=== PATIENT | male | born 1940 | race Caucasian/White ===

== ENCOUNTER → 2016-09-07 | Outpatient (CLI) | payer BC ==
[~2016-09-07] MED LIST: ASPI325T45 PO; CHLO25CA10 PO; CHOL4POW6 PO; CLOT10TR2 MT; FENT50DI19 TD; LISI40TA PO; METO25TA3 PO; MULT-506 PO; OXYC-164 PO; SIMV40TA2 PO; ZNTT/150 PO
[2016-09-07 13:18] LABS: BASO % 0.6 %; BASO ABS # 0.08 K/uL (0-0.2); COMPLETE YES; EOS % 3.9 %; HEMATOCRIT 36.2 % (42-52); IG% 0.3 %; LYMPH % 19.7 %; LYMPH ABS # 2.85 K/uL (1.2-3.4); MEAN CORPUSCULAR HEMOGLOBIN 29.9 pg (25-34); MEAN CORPUSCULAR HGB CONC 33.1 g/dl (32-36); MEAN PLATELET VOLUME 10.8 fL (7.4-10.4); NEUT % 68.5 %; PLATELET COUNT 292 K/uL (130-400); RED BLOOD COUNT 4.02 M/uL (4.7-6.1); WHITE BLOOD COUNT 14.45 K/uL (4.8-10.8)
[2016-09-07 13:21] LABS: BLOOD UREA NITROGEN 39 mg/dl (7-18); BUN/CREATININE RATIO 18.5 (10-20); CALCIUM 8.4 mg/dl (8.5-10.1); CARBON DIOXIDE 18 mmol/L (21-32); CHLORIDE 107 mmol/L (98-107); GLUCOSE 109 mg/dl (70-99); SODIUM 138 mmol/L (136-145)
== END | disposition home or self-care (01) ==
LOC: C.LABPBG 08:48
PROVIDERS: ATTEND Internal Medicine Geriatric Medicine
DX: M19.90 Unspecified osteoarthritis, unspecified site (principal); D64.9 Anemia, unspecified; N18.3 Chronic kidney disease, stage 3 (moderate); E55.9 Vitamin D deficiency, unspecified; I10 Essential (primary) hypertension

== ENCOUNTER → 2016-09-13 | Outpatient (CLI) | payer BC ==
[2016-09-13 13:04] LABS: BLOOD UREA NITROGEN 22 mg/dl (7-18); CARBON DIOXIDE 20 mmol/L (21-32); CHLORIDE 104 mmol/L (98-107); GLUCOSE 104 mg/dl (70-99); POTASSIUM 4.6 mmol/L (3.5-5.1); SODIUM 137 mmol/L (136-145)
== END | disposition home or self-care (01) ==
LOC: C.LABPBG 07:47
PROVIDERS: ATTEND Internal Medicine Geriatric Medicine
DX: N18.3 Chronic kidney disease, stage 3 (moderate) (principal)

== ENCOUNTER → 2017-03-12 | Outpatient (CLI) | payer BC ==
[2017-03-12 12:58] LABS: BASO % 0.3 %; BASO ABS # 0.04 K/uL (0-0.2); COMPLETE YES; EOS % 2.6 %; HEMATOCRIT 36.2 % (42-52); IG% 0.5 %; LYMPH % 22.5 %; LYMPH ABS # 3.12 K/uL (1.2-3.4); MEAN CELL VOLUME 89.8 fL (80-100); MEAN CORPUSCULAR HEMOGLOBIN 28.8 pg (25-34); MEAN PLATELET VOLUME 10.6 fL (7.4-10.4); MONO % 6.9 %; NEUT % 67.2 %; PLATELET COUNT 322 K/uL (130-400); RED BLOOD COUNT 4.03 M/uL (4.7-6.1); WHITE BLOOD COUNT 13.85 K/uL (4.8-10.8)
[2017-03-12 13:17] LABS: ALT/SGPT 23 U/L (12-78); AST/SGOT 16 U/L (15-37); BLOOD UREA NITROGEN 41 mg/dl (7-18); BUN/CREATININE RATIO 21.7 (10-20); CALCIUM 8.6 mg/dl (8.5-10.1); CARBON DIOXIDE 22 mmol/L (21-32); CHLORIDE 102 mmol/L (98-107); CHOLESTEROL 129 mg/dl (0-200); GLUCOSE 99 mg/dl (70-99); POTASSIUM 5.5 mmol/L (3.5-5.1); SODIUM 131 mmol/L (136-145)
[2017-03-12 13:29] LABS: ALB/GLOB RATIO 0.9 (0.9-2); ALKALINE PHOSPHATASE 98 U/L (45-117); CHOLESTEROL/HDL RATIO 3.5; HDL CHOLESTEROL 37 mg/dl; LDL CHOLESTEROL CALCULATED 51 mg/dl; TRIGLYCERIDES 205 mg/dl (0-150); VERY LOW DENSITY LIPOPROT CALC 41 mg/dl
== END | disposition home or self-care (01) ==
LOC: C.LABPBG 08:04
PROVIDERS: ATTEND Internal Medicine Geriatric Medicine
DX: I12.9 Hypertensive chronic kidney disease with stage 1 through stage 4 chronic kidney disease, or unspecified chronic kidney disease (principal); E78.5 Hyperlipidemia, unspecified; N18.3 Chronic kidney disease, stage 3 (moderate); D64.9 Anemia, unspecified; E55.9 Vitamin D deficiency, unspecified; R35.1 Nocturia

== ENCOUNTER → 2017-03-15 | Outpatient (CLI) | payer BC ==
[2017-03-15 12:53] LABS: BLOOD UREA NITROGEN 26 mg/dl (7-18); BUN/CREATININE RATIO 16.3 (10-20); CARBON DIOXIDE 21 mmol/L (21-32); CHLORIDE 104 mmol/L (98-107); GLUCOSE 104 mg/dl (70-99); POTASSIUM 4.8 mmol/L (3.5-5.1); SODIUM 133 mmol/L (136-145)
== END | disposition home or self-care (01) ==
LOC: C.LABPBG 09:21
PROVIDERS: ATTEND Internal Medicine Geriatric Medicine
DX: E87.5 Hyperkalemia (principal)

== ENCOUNTER → 2017-10-09 | Outpatient (CLI) | payer BC ==
[~2017-10-09] MED LIST changes: +RANI150T85 PO; -ZNTT/150 PO
[2017-10-09 17:49] LABS: BASO % 0.6 %; BASO ABS # 0.07 K/uL (0-0.2); EOS % 1.7 %; HEMATOCRIT 33.9 % (42-52); HEMOGLOBIN 11.6 g/dL (14.0-18.0); IG# 0.03 K/uL (0.00-0.02); LYMPH % 25.7 %; LYMPH ABS # 2.97 K/uL (1.2-3.4); MEAN CELL VOLUME 88.3 fL (80-100); MEAN CORPUSCULAR HEMOGLOBIN 30.2 pg (25-34); MEAN CORPUSCULAR HGB CONC 34.2 g/dl (32-36); MEAN PLATELET VOLUME 10.5 fL (7.4-10.4); MONO % 4.6 %; MONO ABS # 0.53 K/uL (0.11-0.59); NEUT % 67.1 %; NEUT ABS # 7.76 K/uL (1.4-6.5); PLATELET COUNT 285 K/uL (130-400); RED CELL DISTRIBUTION WIDTH CV 13.1 % (11.5-14.5); RED CELL DISTRIBUTION WIDTH SD 42.2 fL (36.4-46.3); WHITE BLOOD COUNT 11.56 K/uL (4.8-10.8)
[2017-10-09 18:11] LABS: BLOOD UREA NITROGEN 35 mg/dl (7-18); CALCIUM 8.6 mg/dl (8.5-10.1); CARBON DIOXIDE 22 mmol/L (21-32); CREATININE 1.98 mg/dl (0.60-1.40); GLUCOSE 104 mg/dl (70-99); POTASSIUM 5.1 mmol/L (3.5-5.1); SODIUM 133 mmol/L (136-145)
== END | disposition home or self-care (01) ==
LOC: C.LABPBG 15:07
PROVIDERS: ATTEND Internal Medicine Geriatric Medicine
DX: E78.5 Hyperlipidemia, unspecified (principal); D64.9 Anemia, unspecified; N18.3 Chronic kidney disease, stage 3 (moderate); R35.1 Nocturia; I12.9 Hypertensive chronic kidney disease with stage 1 through stage 4 chronic kidney disease, or unspecified chronic kidney disease

== ENCOUNTER → 2017-11-14 | Outpatient (CLI) | payer BC ==
[~2017-11-14] MED LIST changes: +CHOL1000 PO; +CHOLPOW PO; +DIPH-437 PO; +FINA5TAB PO; +FNTTP50 TD; +IMD/2 PO; +NYSS5 PO; +TAMS0.4C38 PO
[2017-11-14 13:40] LABS: BLOOD UREA NITROGEN 31 mg/dl (7-18); CREATININE 1.76 mg/dl (0.60-1.40)
== END | disposition home or self-care (01) ==
LOC: C.LABPBG 08:21
PROVIDERS: ATTEND Surgery Vascular Surgery
DX: I65.29 Occlusion and stenosis of unspecified carotid artery (principal)

== ENCOUNTER 2017-11-19 08:39 | Emergency (ER) | payer BC ==
[~2017-11-19] VITALS: Ht 172.7 cm; Wt 91.5 kg
[~2017-11-19 08:39] MED LIST changes: -ASPECOTC PO; +ASPI325T45 PO; -CHOL1000 PO; -CHOLPOW PO; -DIPH-437 PO; -FINA5TAB PO; -FNTTP50 TD; -IMD/2 PO; -NYSS5 PO; -TAMS0.4C38 PO
[2017-11-19 08:42] VITALS: TEMP 36.4; Ht 172.7 cm; Wt 91.5 kg
[2017-11-19] MEDS ORDERED: CHOLPOW PO (10:02)
[2017-11-19] MEDS ORDERED: FNTTP50 TD (10:02)
[2017-11-19] MEDS ORDERED: CHLO25CA10 PO (10:02)
[2017-11-19] MEDS ORDERED: ASPI325T45 PO (10:02)
[2017-11-19] MEDS ORDERED: NYSS5 PO (10:02)
[2017-11-19] MEDS ORDERED: METO25TA3 PO (10:02)
[2017-11-19] MEDS ORDERED: LISI40TA PO (10:02)
[2017-11-19] MEDS ORDERED: TAMS0.4C38 PO (10:02)
[2017-11-19] MEDS ORDERED: IMD/2 PO (10:02)
[2017-11-19] MEDS ORDERED: CHOL1000 PO (10:02)
[2017-11-19] MEDS ORDERED: DIPH-437 PO (10:02)
[2017-11-19] MEDS ORDERED: FINA5TAB PO (10:02)
--- NOTE | 2017-11-19 10:10 | EMERGENCY ROOM VISIT NOTE ---
History First contact with patient: 08:52 Chief Complaint: PAIN (GENERALIZED) Stated Complaint: PAIN IN RIGHT LEG AND NECK History of Present Illness The patient is a 77 year old male with hx of R hip replacement, R femur sandip, R knee replacement, complete occlusion of R-ICA, 50-60% occlusion of L-ICA, HTN, HLD, and chronic pain presents to the Emergency Room with complaints of R thigh region pain since last week and R neck pain x 3 days. Pt uses a cane outside of the house, and a wheelchair/hospital bed inside the house. Pt described neck pain as constant worse with movement and 1-2/10. R thigh region pain is described as "jolt like pain" 10/10 and intermittent. Denies any numbness/ tingling or worsening of baseline weakness in leg. According to over- exerted himself last week as it took him 6 hours to get to and from appointment (house has 2 flights of stairs) and also needed to go out for blood work the next day. According to , neck pain likely from spasm and caused by discomfort from R thigh region. Pt came for neck CTA today to the hospital and called PCP regarding R thigh/neck pain and was told to come to the ED. Review of Systems see below Constitutional: No fever Respiratory: No shortness of breath Cardiovascular: No chest pain Abdomen: + diarrhea (chronic), No pain, No nausea, No vomiting Musculoskeletal: + problem reported (R thigh region pain and R sided neck pain) Genitourinary - Male: + urinary incontinence (chronic), No dysuria Neurologic: + weakness, No numbness/tingling Past Medical/Surgical History Medical Problems: (1) Benign hypertension (2) Chronic pain syndrome (3) Hyperlipidemia Family History No significant family history Social History Smoking Status: Former Smoker Alcohol Use: occasionally Drug Use: none Marital Status: Housing Status: lives with family Current/Historical Medications Scheduled Aspirin (Aspirin), 325 MG PO DAILY Chlordiazepoxide (Librium), 25 MG PO QID Chlordiazepoxide (Librium), 25 MG PO NEEDED Cholecalciferol (Vitamin D3), 100 UNITS PO DAILY Cholestyramine (Bulk) (Cholestyramine), 4 GM PO DAILY Diphenhydramine-Acetaminophen (Tylenol Pm), 1 TAB PO HS Fentanyl (Duragesic), 50 MCG TD CQ72HR Finasteride (Proscar), 5 MG PO DAILY Lisinopril (Zestril), 40 MG PO DAILY Loperamide Hcl (Imodium), 2 MG PO Q6 Metoprolol Succ (Toprol Xl) (Toprol-Xl), 25 MG PO DAILY Multivitamin (Multivitamin), 1 TAB PO DAILY Nystatin (Nystatin), 5 ML PO QID Ranitidine (Zantac), 300 MG PO DAILY Simvastatin (Zocor), 40 MG PO QPM Tamsulosin Hcl (Flomax), 0.4 MG PO DAILY Scheduled PRN Oxycodone Hcl (Oxycodone Hcl), 10 MG PO Q4 PRN for Pain Physical Exam Vital Signs Date Time Temp Pulse Resp B/P (MAP) Pulse Ox O2 Delivery O2 Flow Rate FiO2 11/19/17 11:55 59 144/54 98 Room Air 11/19/17 10:29 76 19 106/51 99 Room Air 11/19/17 08:42 36.4 62 18 135/76 99 Room Air Physical Exam see below General Appearance: no apparent distress Head: normocephalic, atraumatic Eyes: normal inspection ENT: normal ENT inspection Neck: no carotid bruits, + pertinent finding (full neck ROM; reports pain with neck extension and when turning to the left; R sided neck tenderness in the region of sternocleidomastoid muscle) Respiratory/Chest: lungs clear, normal breath sounds Cardiovascular: regular rate, rhythm, no murmur Abdomen / GI: normal bowel sounds, non tender, soft Back: normal inspection, + paravertebral tenderness Extremities: normal inspection, no calf tenderness, no pedal edema Neurologic/Psych: alert, oriented x 3 Medical Decision & Procedures Medical Decision 77 year old male with hx of R hip replacement, R femur sandip, R knee replacement, complete occlusion of R-ICA, 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 Neck pain concerning for neck strain vs. radiculopathy -ordered C-spine xray - no fracture or subluxation; multilevel degenerative changes -Neck CTA ordered by Dr. Subramanian today: slight progression of miderate calcified plague L-IC bulb and 50-60% stenosis at origin of L-ICA; complete occlusion of R ICA R thigh region pain concerning for exacerbation of R hip pain in the setting of R hip replacement in 1957 vs. exacerbation of chronic R knee pain (hx of R knee replacement) -ordered R femur xray -mild soft tissue swelling lateral proximal R femur consistent with likely contusion Impression Primary Impression: Contusion of leg, right Additional Impression: Neck sprain Departure Information Referrals Rj Monahan M.D. (PCP) Patient Instructions My [facility] Problem Qualifiers
--- NOTE | 2017-11-19 10:32 | DIAGNOSTIC IMAGING REPORT ---
R FEMUR 2 VIEWS ROUTINE HISTORY: 77 years-old Male R thigh pain acute right thigh pain without known trauma COMPARISON: Acute abdominal series radiographs 02/18/2014 TECHNIQUE: 2 views of the right femur FINDINGS: Right knee arthroplasty is in place. Intramedullary nail with 2 distal and one proximal cannulated fixation screws is in place. Cortical thickening of the distal femoral metaphysis, most pronounced laterally suggests healed fracture deformity. There is no acute fracture or dislocation identified. Moderate degenerative changes about the right hip. The bones appear mildly demineralized. Cannulated screws are seen within the right iliac wing, unchanged. There is suggestion of mild soft tissue prominence lateral to the right proximal femur. Peripheral vascular disease. IMPRESSION: 1. Suggestion of mild soft tissue swelling lateral to the proximal right femur without acute fracture or dislocation. 2. Peripheral vascular disease. The above report was generated using voice recognition software. It may contain grammatical, syntax or spelling errors. Electronically signed by: Paco Gilmore M.D. 11/19/2017 10:31 AM Dictated Date/Time: 11/19/2017 10:29 AM
--- NOTE | 2017-11-19 10:53 | DIAGNOSTIC IMAGING REPORT ---
C-SPINE ROUTINE 4 OR 5 VIEWS HISTORY: 77 years-old Male neck pain acute neck pain without known injury COMPARISON: CTA of the neck of same day TECHNIQUE: 5 views of the cervical spine FINDINGS: The seventh vertebral segment is not well seen on the lateral view secondary to positioning. At least moderate intervertebral disc space narrowing is seen at C4-C5, C5-C6 and C6-C7 with partial bony fusion at the C4-C5 level. Moderate multilevel facet arthrosis with endplate spurring. These changes result in multilevel bony neuroforaminal narrowing, most pronounced on the right at C5-C6 and C6-C7, moderate to severe at C6-C7. Additionally, on the left there is multilevel bony neuroforaminal narrowing which appears at least moderate throughout. No acute fracture or subluxation identified. Imaged lung apices are clear. No prevertebral soft tissue swelling. IMPRESSION: 1. No acute fracture or subluxation. 2. Multilevel degenerative changes as above. The above report was generated using voice recognition software. It may contain grammatical, syntax or spelling errors. Electronically signed by: Paco Gilmore M.D. 11/19/2017 10:52 AM Dictated Date/Time: 11/19/2017 10:49 AM
[2017-11-19 11:55] VITALS: BP 144/54; PULSE 59; O2SAT 98
--- NOTE | 2017-11-19 13:36 | EMERGENCY ROOM VISIT NOTE ---
History Report prepared by Christopheribpayton: Chay Watts Under the Supervision of: Dr. Saad Marquis D.O. First contact with patient: 08:54 Chief Complaint: PAIN (GENERALIZED) Stated Complaint: PAIN IN RIGHT LEG AND NECK History of Present Illness The patient is a 77 year old male who presents to the Emergency Room with complaints of intermittent right thigh and constant right-sided neck pain. His thigh pain began last week, and his neck pain began three days ago. The patient rates his neck pain as a 2/10 in severity, and his thigh pain as a 10/10 in severity. He denies any numbness, or weakness. The patient has a history of right hip replacement, right femur sandip placement, right knee replacement, complete occlusion of right ICA, 50-60% occlusion of left ICA, HTN, HLD, and chronic pain. He ambulates at home using a cane while outside, but uses a wheelchair while home. Per , the patient may have over exerted himself last week and this may be responsible for his pain. She states that he had to leave the house several times and go up and down several flights of stairs each time. She feels that the patient's neck pain could be related to him stiffening his neck when his thigh hurts. Pt came for neck CTA today to the hospital and called PCP regarding right thigh/neck pain and was told to come to the ED. Source of History: patient, spouse/significant other () Onset: Last week Position: leg (right thigh) Symptom Intensity: 10/10 Timing: intermittent Associated Symptoms: + neck pain (right sided), No weakness, No numbness Review of Systems See HPI for pertinent positives & negatives. A total of 10 systems reviewed and were otherwise negative. Past Medical & Surgical Medical Problems: (1) Benign hypertension (2) Chronic pain syndrome (3) Hyperlipidemia Family History No significant family history Social History Smoking Status: Former Smoker Alcohol Use: occasionally Drug Use: none Marital Status: Housing Status: lives with family Current/Historical Medications Scheduled Aspirin (Aspirin), 325 MG PO DAILY Chlordiazepoxide (Librium), 25 MG PO QID Chlordiazepoxide (Librium), 25 MG PO NEEDED Cholecalciferol (Vitamin D3), 100 UNITS PO DAILY Cholestyramine (Bulk) (Cholestyramine), 4 GM PO DAILY Diphenhydramine-Acetaminophen (Tylenol Pm), 1 TAB PO HS Fentanyl (Duragesic), 50 MCG TD CQ72HR Finasteride (Proscar), 5 MG PO DAILY Lisinopril (Zestril), 40 MG PO DAILY Loperamide Hcl (Imodium), 2 MG PO Q6 Metoprolol Succ (Toprol Xl) (Toprol-Xl), 25 MG PO DAILY Multivitamin (Multivitamin), 1 TAB PO DAILY Nystatin (Nystatin), 5 ML PO QID Ranitidine (Zantac), 300 MG PO DAILY Simvastatin (Zocor), 40 MG PO QPM Tamsulosin Hcl (Flomax), 0.4 MG PO DAILY Scheduled PRN Oxycodone Hcl (Oxycodone Hcl), 10 MG PO Q4 PRN for Pain Allergies Coded Allergies: No Known Allergies (Verified , 06/28/16) Physical Exam Vital Signs Date Time Temp Pulse Resp B/P (MAP) Pulse Ox O2 Delivery O2 Flow Rate FiO2 11/19/17 11:55 59 144/54 98 Room Air 11/19/17 10:29 76 19 106/51 99 Room Air 11/19/17 08:42 36.4 62 18 135/76 99 Room Air Physical Exam CONSTITUTIONAL/VITAL SIGNS: Reviewed / noted above. GENERAL: Non-toxic in appearance. INTEGUMENTARY: Warm, dry, and [place]. HEAD: Normocephalic. EYES: without scleral icterus or trauma. ENT/OROPHARYNX: clear and moist. LYMPHADENOPATHY/NECK: Is supple without lymphadenopathy or meningismus. RESPIRATORY: Lungs clear and equal. CARDIOVASCULAR: Regular rate and rhythm. GI/ABDOMEN: Soft and nontender. No organomegaly or pulsatile mass. No rebound or guarding. Normal bowel sounds. EXTREMITIES: Warm and well perfused. BACK: No CVA tenderness. NEUROLOGICAL: Intact without focal deficits. PSYCHIATRIC: normal affect. MUSCULOSKELETAL: Normally developed with good muscle tone. Medical Decision & Procedures ER Provider Diagnostic Interpretation: Radiology results as stated below per my review and radiologist interpretation: R FEMUR 2 VIEWS ROUTINE FINDINGS: Right knee arthroplasty is in place. Intramedullary nail with 2 distal and one proximal cannulated fixation screws is in place. Cortical thickening of the distal femoral metaphysis, most pronounced laterally suggests healed fracture deformity. There is no acute fracture or dislocation identified. Moderate degenerative changes about the right hip. The bones appear mildly demineralized. Cannulated screws are seen within the right iliac wing, unchanged. There is suggestion of mild soft tissue prominence lateral to the right proximal femur. Peripheral vascular disease. IMPRESSION: 1. Suggestion of mild soft tissue swelling lateral to the proximal right femur without acute fracture or dislocation. 2. Peripheral vascular disease. The above report was generated using voice recognition software. It may contain grammatical, syntax or spelling errors. Electronically signed by: Paco Gilmore M.D. 11/19/2017 10:31 AM C-SPINE ROUTINE 4 OR 5 VIEWS FINDINGS: The seventh vertebral segment is not well seen on the lateral view secondary to positioning. At least moderate intervertebral disc space narrowing is seen at C4-C5, C5-C6 and C6-C7 with partial bony fusion at the C4-C5 level. Moderate multilevel facet arthrosis with endplate spurring. These changes result in multilevel bony neuroforaminal narrowing, most pronounced on the right at C5-C6 and C6-C7, moderate to severe at C6-C7. Additionally, on the left there is multilevel bony neuroforaminal narrowing which appears at least moderate throughout. No acute fracture or subluxation identified. Imaged lung apices are clear. No prevertebral soft tissue swelling. IMPRESSION: 1. No acute fracture or subluxation. 2. Multilevel degenerative changes as above. The above report was generated using voice recognition software. It may contain grammatical, syntax or spelling errors. Electronically signed by: Paco Gilmore M.D. 11/19/2017 10:52 AM ED Course 0858: Previous medical records were reviewed. The patient was evaluated in room A4B. A complete history and physical examination was performed. Medical Decision Differential diagnosis: Etiologies such as fracture, dislocation, neurovascular compromise, compartment syndrome, soft tissue injury, as well as others were entertained. This is a 77-year-old male who presents to the ED with a chief complaint of neck pain as well as right leg pain. Details listed above. The patient was seen with the resident. The patient has had neck pain for several days and right leg pain for about a week. His pain in his leg seems to be increased with certain movements. X-rays of the right femur as well as the cervical spine did not show any evidence of fracture or acute abnormality. Degenerative changes were noted. I talked to the patient about the results. He is going to try Tylenol or Motrin as needed for pain and follow-up if symptoms persist Medication Reconcilliation Current Medication List: was personally reviewed by me Blood Pressure Screening Patient's blood pressure: Normal blood pressure Blood pressure disposition: Did not require urgent referral Impression Primary Impression: Contusion of leg, right Additional Impression: Neck sprain Scribe Attestation The scribe's documentation has been prepared under my direction and personally reviewed by me in its entirety. I confirm that the note above accurately reflects all work, treatment, procedures, and medical decision making performed by me. Departure Information Dispostion Home / Self-Care Referrals Rj Monahan M.D. (PCP) Forms HOME CARE DOCUMENTATION FORM, IMPORTANT VISIT INFORMATION, WORK / SCHOOL INSTRUCTIONS Patient Instructions Contusion Bone Tx, My [facility], Neck Strain - [facility] Additional Instructions Medications recommended for pain: Ibuprofen (motrin) up to 800mg every 8 hours OR Tylenol (acetaminophen) 500mg three times a day Problem Qualifiers
== END 2017-11-19 12:08 | disposition home or self-care (01) ==
LOC: C.EDB 08:40 → C.EDA 12:08
DX: S80.11XA Contusion of right lower leg, initial encounter (principal); S13.9XXA Sprain of joints and ligaments of unspecified parts of neck, initial encounter; X58.XXXA Exposure to other specified factors, initial encounter; Y92.9 Unspecified place or not applicable; I10 Essential (primary) hypertension; E78.5 Hyperlipidemia, unspecified; G89.4 Chronic pain syndrome; Z96.641 Presence of right artificial hip joint; Z96.651 Presence of right artificial knee joint; Z87.891 Personal history of nicotine dependence; Z79.82 Long term (current) use of aspirin; Z79.899 Other long term (current) drug therapy

== ENCOUNTER → 2017-11-19 | Outpatient (CLI) | payer BC ==
[~2017-11-19] MED LIST changes: +ASPECOTC PO; -ASPI325T45 PO
--- NOTE | 2017-11-19 08:58 | DIAGNOSTIC IMAGING REPORT ---
NECK CTA HISTORY: Follow-up carotid stenosis. TECHNIQUE: Multiaxial CT images of the neck were performed both before and after the intravenous administration of contrast to evaluate the major cervical vessels. Maximum intensity projection images were also obtained. All measurements were calculated based on NASCET criteria. A dose lowering technique was utilized adhering to the principles of ALARA. COMPARISON STUDY: Neck CTA 12/21/2010. FINDINGS: The aortic arch and proximal great vessels are widely patent. 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 This remains unchanged. Mild narrowing of approximately 20% at the proximal right external carotid artery. There is moderate calcified plaque within the left carotid bulb which has slightly progressed. There is approximately 50-60% stenosis at the origin of the left internal carotid artery. This is similar to the prior study. The common carotid arteries and vertebral arteries are maintained. Mild noncalcified plaque within the right common carotid artery persists. There is cross-filling within the [place] from left to right. The visualized brain parenchyma is unremarkable. IMPRESSION: 1. Slight progression of the moderate calcified plaque within the left carotid bulb. However, the 50-60% focal stenosis at the origin of the left internal carotid artery is not significantly changed. 2. Complete occlusion of the right internal carotid artery, unchanged. Electronically signed by: Rao Aguiar M.D. 11/19/2017 8:57 AM Dictated Date/Time: 11/19/2017 8:45 AM
== END | disposition home or self-care (01) ==
LOC: C.CTS 07:57
PROVIDERS: ATTEND Physician Assistant
DX: I65.23 Occlusion and stenosis of bilateral carotid arteries (principal)

== ENCOUNTER 2018-03-26 06:22 | Emergency (ER) | payer BC ==
[~2018-03-26 06:22] MED LIST changes: +ASPECOTC PO; -ASPI325T45 PO; +CHOL1000 PO; -CHOL4POW6 PO; +CHOLPOW PO; -CLOT10TR2 MT; +DIPH-437 PO; -FENT50DI19 TD; +FINA5TAB PO; +FNTTP50 TD; +IMD/2 PO; +NYSS5 PO; +TAMS0.4C38 PO
[2018-03-26 06:25] VITALS: TEMP 36.6; Ht 177.8 cm
[2018-03-26] MEDS ORDERED: SODIUM CHLORIDE 0.9% 1000ML 1,000 ML IV STA (06:35)
[2018-03-26 06:37] VITALS: O2SAT 96
[2018-03-26] MEDS ORDERED: OPTIRAY 320 IV PRN (06:45)
--- NOTE | 2018-03-26 06:48 | EMERGENCY ROOM VISIT NOTE ---
History First contact with patient: 06:29 Chief Complaint: GI ASSESSMENT Stated Complaint: BOWEL BLOCKAGE,VOMITING,NO BOWEL MVMNT 3DYS Nursing Triage Summary: Pt presents with c/o lower abd pain x 2.5 days with associated nausea. Pt reports hx of blockage several years ago. States he moved his bowels this morning. History of Present Illness The patient is a 77 year old male who presents to the Emergency Room with complaints of bowel blockage. The patient reports she has not had a bowel movement in 3 days. He is complaining of lower quadrant pains. The patient believes he is about to have a bowel movement upon arrival to the emergency department. He keeps asking to use the bathroom. He has had his gallbladder out in the past. Patient reports he has been vomiting. Review of Systems See HPI for pertinent positives & negatives. A total of 10 systems reviewed and were otherwise negative. Past Medical/Surgical History Medical Problems: (1) Benign hypertension (2) Chronic pain syndrome (3) Hyperlipidemia Family History No significant family history Social History Smoking Status: Current Every Day Smoker Alcohol Use: occasionally Drug Use: none Marital Status: Housing Status: lives with family Current/Historical Medications Scheduled Aspirin (Aspirin), 325 MG PO DAILY Chlordiazepoxide (Librium), 25 MG PO QID Chlordiazepoxide (Librium), 25 MG PO NEEDED Cholecalciferol (Vitamin D3), 100 UNITS PO DAILY Cholestyramine (Bulk) (Cholestyramine), 4 GM PO DAILY Diphenhydramine-Acetaminophen (Tylenol Pm), 1 TAB PO HS Fentanyl (Duragesic), 50 MCG TD [id number] Finasteride (Proscar), 5 MG PO DAILY Lisinopril (Zestril), 40 MG PO DAILY Loperamide Hcl (Imodium), 2 MG PO Q6 Metoprolol Succ (Toprol Xl) (Toprol-Xl), 25 MG PO DAILY Multivitamin (Multivitamin), 1 TAB PO DAILY Nystatin (Nystatin), 5 ML PO QID Ondasetron Odt (Zofran Odt), 4 MG SL Q6H Ranitidine (Zantac), 300 MG PO DAILY Simvastatin (Zocor), 40 MG PO QPM Tamsulosin Hcl (Flomax), 0.4 MG PO DAILY Scheduled PRN Oxycodone Hcl (Oxycodone Hcl), 10 MG PO Q4 PRN for Pain Physical Exam Vital Signs Date Time Temp Pulse Resp B/P (MAP) Pulse Ox O2 Delivery O2 Flow Rate FiO2 03/26/18 08:55 66 20 123/46 94 Room Air 03/26/18 07:52 63 18 96 03/26/18 07:31 116/68 03/26/18 07:22 68 18 03/26/18 07:01 108/70 03/26/18 06:52 69 11 97 03/26/18 06:40 72 03/26/18 06:39 70 20 92/63 96 Room Air 03/26/18 06:37 96 Room Air 03/26/18 06:36 92/63 03/26/18 06:25 36.6 76 26 92/61 97 Room Air Physical Exam GENERAL: Awake, alert, well-appearing, in no acute distress HENT: Normocephalic, atraumatic. Oropharynx unremarkable. EYES: Normal conjunctiva. Sclera non-icteric. NECK: Supple. No nuchal rigidity. FROM. No JVD. RESPIRATORY: Clear to auscultation. CARDIAC: Regular rate, normal rhythm. Extremities warm and well perfused. Pulses equal. ABDOMEN: Soft, non-distended. tenderness RLQ and LLQ. No rebound or guarding. No masses. RECTAL: Deferred. MUSCULOSKELETAL: Chest examination reveals no tenderness. The back is symmetrical on inspection without obvious abnormality. There is no CVA tenderness to palpation. No joint edema. LOWER EXTREMITIES: Calves are equal size bilaterally and non-tender. No edema. No discoloration. NEURO: Normal sensorium. No sensory or motor deficits noted. SKIN: No rash or jaundice noted. Medical Decision & Procedures ER Provider Diagnostic Interpretation: CHEST ONE VIEW PORTABLE CLINICAL HISTORY: 77 years-old Male presenting with CHEST PAIN. TECHNIQUE: Portable upright AP view of the chest was obtained. COMPARISON: 12/09/2014. FINDINGS: Atherosclerosis of the aortic arch. Cardiac silhouette normal in size. Minimal basilar opacities. No pleural effusion or pneumothorax. Degenerative changes of the thoracic spine. Upper abdomen normal. IMPRESSION: 1. Minimal basilar opacities likely atelectasis or scarring. No convincing evidence of acute cardiopulmonary disease. ABD/PELVIS WITHOUT FOR STONE CLINICAL HISTORY: 77 years-old Male presenting with diffuse abdominal pain, constipation, nausea, vomiting. TECHNIQUE: Multidetector CT of the abdomen and pelvis was performed without the use of intravenous contrast. IV contrast: None. A dose lowering technique was used consistent with the principles of ALARA (as low as reasonably achievable). COMPARISON: 02/17/2014. CT DOSE (mGy.cm): The estimated cumulative dose is 1397.85 mGy.cm. 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 3 screws noted in the right ilium. Posterior lumbar fusion hardware at L4-5. Cholecystectomy clips. Lung bases: Minimal basilar opacities, likely atelectasis. Bronchial wall thickening noted. Pulmonary cyst noted in the azygoesophageal recess of the right lower lobe. Normal heart size. Aortic valve calcification. No pericardial or pleural effusion. Liver: Congenital hypoplasia of the medial segments of the left hepatic lobe. Normal density. Biliary: Mild biliary ductal prominence likely a reservoir effect in the post cholecystectomy state. Gallbladder surgically absent. Pancreas: Mild parenchymal atrophy. Spleen: Normal noncontrast appearance. Adrenal glands: Normal noncontrast appearance. Kidneys and ureters: Moderate bilateral perinephric fat stranding similar to prior. Atrophy of the right renal parenchyma. Multiple bilateral renal lesions greatest on the right, indeterminate though many of these represents cysts. Few cysts demonstrate peripheral calcification. A hyperdense lesion anteriorly in the interpolar region is new from prior and is indeterminate though possibly hemorrhagic or proteinaceous cyst measuring 1.9 cm (series 3 image 182). No hydronephrosis. Few punctate nonobstructing renal calculi may be present at the lower pole the right kidney, new from prior. Ureters normal. Bladder: Allowing for underdistention of the bladder, possible bladder wall thickening greatest along the anterior wall. Pelvic organs: Prostate and seminal vesicles normal. Bowel: Fluid throughout the colon suggests a diarrheal state. Hyperdense material in the gastric fundus and small bowel is indeterminate. Mild distention of small bowel without convincing evidence of obstruction. Prominent intramural fat deposition noted in the terminal ileum, nonspecific. Scattered additional regions of intramural fat deposition in the small bowel. No significant bowel wall thickening. No pericolonic or perienteric inflammatory change. Peritoneal cavity: Trace free fluid in the abdomen and pelvis. No free intraperitoneal gas. Lymph nodes: No gross lymphadenopathy allowing for noncontrast technique. Vasculature: Atherosclerosis of the normal caliber abdominal aorta. Flattened appearance of the IVC suggests a hypovolemic state. Abdominal wall: Normal. Musculoskeletal: Postsurgical changes of posterior lumbar fusion hardware at L4-5 with laminectomy defects. Adjacent level degenerative change at L3-4. Total left hip arthroplasty. Three screw fixation and posttraumatic deformity of the right ilium suggested. Degenerative changes of the right hip joint. Old fracture deformity of the left superior and inferior pubic rami suggested. Old left rib fracture noted. IMPRESSION: 1. Mild diffuse distention of small bowel without evidence of small bowel obstruction. Fluid throughout small and large bowel could suggest a enterocolitis and a diarrheal state. Hyperdense material within the gastric fundus and small bowel is indeterminate and may represent medication administration. Less likely diagnostic consideration is gastrointestinal hemorrhage. Correlate clinically. 2. Scattered sites of intramural fat deposition and small bowel is nonspecific though could suggest a history of chronic inflammation or chronic steroid exposure among other etiologies. 3. Chronic atrophy of the right kidney with numerous cystic lesions, some of which are complex. These are incompletely evaluated without intravenous contrast. The hyperdense right renal lesion may represent a hemorrhagic or proteinaceous cyst though solid neoplasm is not excluded. If there is clinical concern, contrast-enhanced MR of the kidneys could be obtained on a nonurgent basis. 4. Bronchial wall thickening at the lung bases could suggest bronchitis, smoking related lung injury, or congestive change. 5. Flattened appearance of the IVC suggests a hypovolemic state. Laboratory Results 03/26/18 06:45 Red Blood Count 4.10, Mean Corpuscular Volume 87.1, Mean Corpuscular Hemoglobin 29.8, Mean Corpuscular Hemoglobin Concent 34.2, Mean Platelet Volume 10.0, Neutrophils (%) (Auto) 69.8, Lymphocytes (%) (Auto) 17.2, Monocytes (%) (Auto) 10.4, Eosinophils (%) (Auto) 2.2, Basophils (%) (Auto) 0.2, Neutrophils # (Auto ) 8.56, Lymphocytes # (Auto) 2.12, Monocytes # (Auto) 1.28, Eosinophils # (Auto ) 0.27, Basophils # (Auto) 0.03 03/26/18 06:45 Test 03/26/18 06:45 03/26/18 06:55 White Blood Count 12.29 K/uL (4.8-10.8) Red Blood Count 4.10 M/uL (4.7-6.1) Hemoglobin 12.2 g/dL (14.0-18.0) Hematocrit 35.7 % (42-52) Mean Corpuscular Volume 87.1 fL (80-100) Mean Corpuscular Hemoglobin 29.8 pg (25-34) Mean Corpuscular Hemoglobin Concent 34.2 g/dl (32-36) Platelet Count 307 K/uL (130-400) Mean Platelet Volume 10.0 fL (7.4-10.4) Neutrophils (%) (Auto) 69.8 % Lymphocytes (%) (Auto) 17.2 % Monocytes (%) (Auto) 10.4 % Eosinophils (%) (Auto) 2.2 % Basophils (%) (Auto) 0.2 % Neutrophils # (Auto) 8.56 K/uL (1.4-6.5) Lymphocytes # (Auto) 2.12 K/uL (1.2-3.4) Monocytes # (Auto) 1.28 K/uL (0.11-0.59) Eosinophils # (Auto) 0.27 K/uL (0-0.5) Basophils # (Auto) 0.03 K/uL (0-0.2) RDW Standard Deviation 42.2 fL (36.4-46.3) RDW Coefficient of Variation 13.2 % (11.5-14.5) Immature Granulocyte % (Auto) 0.2 % Immature Granulocyte # (Auto) 0.03 K/uL (0.00-0.02) Estimated GFR () 26.4 Estimated GFR (Non- 22.8 BUN/Creatinine Ratio 15.2 (10-20) Calcium Level 8.1 mg/dl (8.5-10.1) Total Bilirubin 0.3 mg/dl (0.2-1) Direct Bilirubin < 0.1 mg/dl (0-0.2) Aspartate Amino Transf (AST/SGOT) 16 U/L (15-37) Alanine Aminotransferase (ALT/SGPT) 17 U/L (12-78) Alkaline Phosphatase 85 U/L (45-117) Total Creatine Kinase 71 U/L (39-308) Creatine Kinase MB 2.3 ng/ml (0.5-3.6) Creatine Kinase MB Ratio 3.2 (0-3.0) Troponin I < 0.015 ng/ml (0-0.045) Total Protein 6.9 gm/dl (6.4-8.2) Albumin 3.3 gm/dl (3.4-5.0) Lipase 70 U/L (73-393) Bedside Hemoglobin 12.9 g/dl (14.0-18.0) Bedside Hematocrit 38 % (42-52) Bedside Sodium 132 mEq/L (135-144) Bedside Potassium 4.3 mEq/L (3.3-5.0) Bedside Chloride 94 mEq/L (101-112) Bedside Total CO2 24 mEq/l (24-31) Anion Gap 20.0 mmol/L (16-25) Bedside Blood Urea Nitrogen 36 mg/dl (7-18) Bedside Creatinine 2.9 mg/dl (0.6-1.3) Bedside Glucose (other) 117 mg/dl (70-99) Bedside Ionized Calcium (Nelly) 1.05 mmol/l (1.12-1.32) Date/Time Source Procedure Growth Status 03/26/18 07:50 Stool C.difficile Toxin B Gene (PCR) - Final Positive for C. difficile toxin B gene Complete Medications Administered Medications (Trade) Dose Ordered Sig/Natalia Route Start Time Stop Time Status Last Admin Dose Admin Sodium Chloride 1,000 ml @ 999 mls/hr Q1H1M STAT IV 03/26/18 06:35 03/26/18 07:35 DC 03/26/18 07:31 999 MLS/HR Metoclopramide HCl (Reglan Inj) 10 mg NOW STAT IV 03/26/18 07:28 03/26/18 07:29 DC 03/26/18 07:40 10 MG ECG Per My Interpretation Indication: abdominal pain Rate (beats per minute): 73 Rhythm: normal sinus Findings: no acute ischemic change Change: no significant change Medical Decision Prior records/ancillary studies reviewed. Triage Nursing notes reviewed. Additional history obtained from . The patient's history was concerning for abdominal pain. Differential diagnosis: Etiologies such as appendicitis, diverticulitis, PUD, biliary pathology, UTI, pancreatitis, obstruction, mesenteric ischemia, aortic pathology, infections, inflammatory bowel disease, renal colic, as well as others were entertained. Physical examination findings: As above. This is a 77-year-old male who presents emergency department complaining of abdominal pain. Serial abdominal examinations were performed and the patient in the emergency department and at no time to the patient exhibited surgical abdomen. He has a normal EKG. The patient was a bit hypotensive upon arrival to the emergency department however I suspect this was from a vasovagal response as the patient was complaining of needing to have a large bowel movement. The patient did have a large bowel movement in the emergency department and is feeling much better after that. He was given a normal saline bolus as well as Reglan. I am concerned that the patient's creatinine is slightly bumped and I recommended admission however the patient is adamantly refusing. He is actually feeling much better after the bowel movement. His blood pressure normalized. He was able to keep fluids down here in the emergency department. I am going to recommend that the patient have a clear liquid diet for the next 48 hours. The patient has demonstrated no significant defect in the decision-making capacity to make choices. The encounter had a good level of communication with language the patient can easily understand. I feel trust was present and conveyed that our action/intentions were the best interest of the patient. The patient was given all relevant information and reiterated the explained risks and benefits. The patient explained the reasoning for refusing treatment clearly. The patient possesses and expresses a set of values and goals, the ability to communicate and understand, and an ability to reason and deliberate. Despite acting emphatically, attentively and with the utmost patient's the patient declined further treatment. I offered options, negotiated, and explored every reasonable choice. I must respect the patient's autonomy and that they feel that their choices are best for them despite the associated risks of leaving without completing the evaluation. The patient was informed about the findings as listed above. All questions were answered and he was pleased with the treatment. Return instructions were outlined and the patient was discharged in stable condition. After being discharged the patient was found to be positive for C. difficile therefore [facility] was called in for the patient. Medication Reconcilliation Current Medication List: was personally reviewed by me Blood Pressure Screening Patient's blood pressure: Normal blood pressure Impression Primary Impression: Dehydration Additional Impression: Vomiting Departure Information Dispostion Home / Self-Care Condition OTHER Prescriptions Ondasetron Odt (ZOFRAN ODT) 4 Mg Tab 4 MG SL Q6H for Nausea, #6 TAB Prov: Saad Montoya MD 03/26/18 Referrals Rj Monahan M.D. (PCP) Patient Instructions [facility] Problem Qualifiers Additional Impression: Vomiting Vomiting type: unspecified Vomiting Intractability: unspecified Nausea presence: unspecified Qualified Codes: R11.10 - Vomiting, unspecified
[2018-03-26 06:58] LABS: BASO % 0.2 %; BASO ABS # 0.03 K/uL (0-0.2); EOS % 2.2 %; EOS ABS # 0.27 K/uL (0-0.5); HEMATOCRIT 35.7 % (42-52); HEMOGLOBIN 12.2 g/dL (14.0-18.0); IG# 0.03 K/uL (0.00-0.02); LYMPH % 17.2 %; LYMPH ABS # 2.12 K/uL (1.2-3.4); MEAN CELL VOLUME 87.1 fL (80-100); MEAN CORPUSCULAR HEMOGLOBIN 29.8 pg (25-34); MEAN CORPUSCULAR HGB CONC 34.2 g/dl (32-36); MONO % 10.4 %; MONO ABS # 1.28 K/uL (0.11-0.59); NEUT % 69.8 %; NEUT ABS # 8.56 K/uL (1.4-6.5); PLATELET COUNT 307 K/uL (130-400); RED CELL DISTRIBUTION WIDTH CV 13.2 % (11.5-14.5); RED CELL DISTRIBUTION WIDTH SD 42.2 fL (36.4-46.3); WHITE BLOOD COUNT 12.29 K/uL (4.8-10.8)
--- NOTE | 2018-03-26 07:00 | DIAGNOSTIC IMAGING REPORT ---
CHEST ONE VIEW PORTABLE CLINICAL HISTORY: 77 years-old Male presenting with CHEST PAIN. TECHNIQUE: Portable upright AP view of the chest was obtained. COMPARISON: 12/09/2014. FINDINGS: Atherosclerosis of the aortic arch. Cardiac silhouette normal in size. Minimal basilar opacities. No pleural effusion or pneumothorax. Degenerative changes of the thoracic spine. Upper abdomen normal. IMPRESSION: 1. Minimal basilar opacities likely atelectasis or scarring. No convincing evidence of acute cardiopulmonary disease. Electronically signed by: Clifford Rey M.D. 03/26/2018 6:59 AM Dictated Date/Time: 03/26/2018 6:58 AM
[2018-03-26 07:10] LABS: ISTAT CREATININE 2.9 mg/dl (0.6-1.3); ISTAT IONIZED CALCIUM 1.05 mmol/l (1.12-1.32); ISTAT POTASSIUM 4.3 mEq/L (3.3-5.0)
[2018-03-26 07:19] LABS: ALBUMIN 3.3 gm/dl (3.4-5.0); ALKALINE PHOSPHATASE 85 U/L (45-117); ALT/SGPT 17 U/L (12-78); AST/SGOT 16 U/L (15-37); BLOOD UREA NITROGEN 39 mg/dl (7-18); CALCIUM 8.1 mg/dl (8.5-10.1); CARBON DIOXIDE 24 mmol/L (21-32); CKMB 2.3 ng/ml (0.5-3.6); CREATININE 2.58 mg/dl (0.60-1.40); GLUCOSE 110 mg/dl (70-99); LIPASE 70 U/L (73-393); POTASSIUM 4.2 mmol/L (3.5-5.1); SODIUM 131 mmol/L (136-145); TOTAL PROTEIN 6.9 gm/dl (6.4-8.2)
[2018-03-26] MEDS ORDERED: METOCLOPRAMIDE HCL INJ 5 MG/ML 2 ML VIAL IV STA (07:28)
--- NOTE | 2018-03-26 07:38 | DIAGNOSTIC IMAGING REPORT ---
ADDENDUM ADDITIONAL IMPRESSION: 6. Bladder wall thickening may be due to underdistention though slight asymmetric thickening along the anterior wall is indeterminate. Electronically signed by: Clifford Rey M.D. 03/26/2018 8:32 AM Dictated Date/Time: 03/26/2018 8:32 AM ORIGINAL REPORT ABD/PELVIS WITHOUT FOR STONE CLINICAL HISTORY: 77 years-old Male presenting with diffuse abdominal pain, constipation, nausea, vomiting. TECHNIQUE: Multidetector CT of the abdomen and pelvis was performed without the use of intravenous contrast. IV contrast: None. A dose lowering technique was used consistent with the principles of ALARA (as low as reasonably achievable). COMPARISON: 02/17/2014. CT DOSE (mGy.cm): The estimated cumulative dose is 1397.85 mGy.cm. 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 3 screws noted in the right ilium. Posterior lumbar fusion hardware at L4-5. Cholecystectomy clips. Lung bases: Minimal basilar opacities, likely atelectasis. Bronchial wall thickening noted. Pulmonary cyst noted in the azygoesophageal recess of the right lower lobe. Normal heart size. Aortic valve calcification. No pericardial or pleural effusion. Liver: Congenital hypoplasia of the medial segments of the left hepatic lobe. Normal density. Biliary: Mild biliary ductal prominence likely a reservoir effect in the post cholecystectomy state. Gallbladder surgically absent. Pancreas: Mild parenchymal atrophy. Spleen: Normal noncontrast appearance. Adrenal glands: Normal noncontrast appearance. Kidneys and ureters: Moderate bilateral perinephric fat stranding similar to prior. Atrophy of the right renal parenchyma. Multiple bilateral renal lesions greatest on the right, indeterminate though many of these represents cysts. Few cysts demonstrate peripheral calcification. A hyperdense lesion anteriorly in the interpolar region is new from prior and is indeterminate though possibly hemorrhagic or proteinaceous cyst measuring 1.9 cm (series 3 image 182). No hydronephrosis. Few punctate nonobstructing renal calculi may be present at the lower pole the right kidney, new from prior. Ureters normal. Bladder: Allowing for underdistention of the bladder, possible bladder wall thickening greatest along the anterior wall. Pelvic organs: Prostate and seminal vesicles normal. Bowel: Fluid throughout the colon suggests a diarrheal state. Hyperdense material in the gastric fundus and small bowel is indeterminate. Mild distention of small bowel without convincing evidence of obstruction. Prominent intramural fat deposition noted in the terminal ileum, nonspecific. Scattered additional regions of intramural fat deposition in the small bowel. No significant bowel wall thickening. No pericolonic or perienteric inflammatory change. Peritoneal cavity: Trace free fluid in the abdomen and pelvis. No free intraperitoneal gas. Lymph nodes: No gross lymphadenopathy allowing for noncontrast technique. Vasculature: Atherosclerosis of the normal caliber abdominal aorta. Flattened appearance of the IVC suggests a hypovolemic state. Abdominal wall: Normal. Musculoskeletal: Postsurgical changes of posterior lumbar fusion hardware at L4-5 with laminectomy defects. Adjacent level degenerative change at L3-4. Total left hip arthroplasty. Three screw fixation and posttraumatic deformity of the right ilium suggested. Degenerative changes of the right hip joint. Old fracture deformity of the left superior and inferior pubic rami suggested. Old left rib fracture noted. IMPRESSION: 1. Mild diffuse distention of small bowel without evidence of small bowel obstruction. Fluid throughout small and large bowel could suggest a enterocolitis and a diarrheal state. Hyperdense material within the gastric fundus and small bowel is indeterminate and may represent medication administration. Less likely diagnostic consideration is gastrointestinal hemorrhage. Correlate clinically. 2. Scattered sites of intramural fat deposition and small bowel is nonspecific though could suggest a history of chronic inflammation or chronic steroid exposure among other etiologies. 3. Chronic atrophy of the right kidney with numerous cystic lesions, some of which are complex. These are incompletely evaluated without intravenous contrast. The hyperdense right renal lesion may represent a hemorrhagic or proteinaceous cyst though solid neoplasm is not excluded. If there is clinical concern, contrast-enhanced MR of the kidneys could be obtained on a nonurgent basis. 4. Bronchial wall thickening at the lung bases could suggest bronchitis, smoking related lung injury, or congestive change. 5. Flattened appearance of the IVC suggests a hypovolemic state. Electronically signed by: Clifford Rey M.D. 03/26/2018 7:37 AM Dictated Date/Time: 03/26/2018 7:22 AM
[2018-03-26] MEDS ORDERED: ONDA4TAB10 SL (08:40)
[2018-03-26 08:55] VITALS: BP 123/46; PULSE 66; O2SAT 94
[2018-03-26] MEDS ORDERED: HYDROmorphone INJ 1 MG/ML SYR IV STA (09:54)
--- NOTE | 2018-03-26 13:11 | Pharmacy Progress Note ---
ED Pharmacist Culture FollowUp Date of Service: Mar 26, 2018. Received C.Diff positive result. Result was called in earlier today and patient was informed and called in prescription for metronidazole 500 mg TID x 10 days. No further action required.
[2018-03-31] MEDS ORDERED: CIPR-255 PO (12:02)
[2018-03-31] MEDS ORDERED: SACC250C3 PO (13:27)
[2018-03-31] MEDS ORDERED: VANC5CAP PO (13:27)
[2018-03-31] MEDS ORDERED: CHOLPOW PO (13:27)
== END 2018-03-26 09:13 | disposition home or self-care (01) ==
LOC: C.EDB 06:23 → C.EDA 09:13
DX: E86.0 Dehydration (principal); R11.10 Vomiting, unspecified; I10 Essential (primary) hypertension; G89.29 Other chronic pain; E78.5 Hyperlipidemia, unspecified; F17.200 Nicotine dependence, unspecified, uncomplicated; Z79.82 Long term (current) use of aspirin; Z79.899 Other long term (current) drug therapy; Z79.891 Long term (current) use of opiate analgesic

== ENCOUNTER → 2018-03-27 | Outpatient (CLI) | payer BC ==
[~2018-03-27] MED LIST changes: +CIPR-255 PO; +ONDA4TAB10 SL; +SACC250C3 PO; +VANC5CAP PO
[2018-03-27 16:52] LABS: BLOOD UREA NITROGEN 37 mg/dl (7-18); CALCIUM 7.4 mg/dl (8.5-10.1); CARBON DIOXIDE 22 mmol/L (21-32); CREATININE 2.28 mg/dl (0.60-1.40); GLUCOSE 87 mg/dl (70-99); POTASSIUM 3.9 mmol/L (3.5-5.1); SODIUM 125 mmol/L (136-145)
== END | disposition home or self-care (01) ==
LOC: C.LABPBG 14:52
PROVIDERS: ATTEND Family Medicine
DX: N17.9 Acute kidney failure, unspecified (principal); D72.829 Elevated white blood cell count, unspecified

== ENCOUNTER 2018-03-28 09:39 | Inpatient (IN) | payer BC, OTHER ==
[~2018-03-28] VITALS: Ht 177.8 cm; Wt 93.9 kg
[~2018-03-28 09:39] MED LIST changes: -CIPR-255 PO; -SACC250C3 PO; -VANC5CAP PO
[2018-03-28] MEDS ORDERED: SODIUM CHLORIDE 0.9% 1000ML 2,000 ML IV STA (09:55)
[2018-03-28 10:13] LABS: BASO % 0.5 %; BASO ABS # 0.04 K/uL (0-0.2); EOS % 3.2 %; EOS ABS # 0.26 K/uL (0-0.5); HEMATOCRIT 30.8 % (42-52); HEMOGLOBIN 10.6 g/dL (14.0-18.0); IG# 0.03 K/uL (0.00-0.02); LYMPH % 17.6 %; LYMPH ABS # 1.43 K/uL (1.2-3.4); MEAN CELL VOLUME 86.3 fL (80-100); MEAN CORPUSCULAR HEMOGLOBIN 29.7 pg (25-34); MEAN CORPUSCULAR HGB CONC 34.4 g/dl (32-36); MEAN PLATELET VOLUME 9.5 fL (7.4-10.4); MONO ABS # 0.65 K/uL (0.11-0.59); NEUT % 70.3 %; NEUT ABS # 5.72 K/uL (1.4-6.5); PLATELET COUNT 257 K/uL (130-400); RED CELL DISTRIBUTION WIDTH CV 12.6 % (11.5-14.5); RED CELL DISTRIBUTION WIDTH SD 40.2 fL (36.4-46.3); WHITE BLOOD COUNT 8.13 K/uL (4.8-10.8)
[2018-03-28 10:33] LABS: ALBUMIN 2.9 gm/dl (3.4-5.0); ALKALINE PHOSPHATASE 74 U/L (45-117); ALT/SGPT 17 U/L (12-78); BLOOD UREA NITROGEN 36 mg/dl (7-18); CALCIUM 7.6 mg/dl (8.5-10.1); CREATININE 2.35 mg/dl (0.60-1.40); TOTAL PROTEIN 6.2 gm/dl (6.4-8.2)
[2018-03-28 10:36] LABS: CARBON DIOXIDE 23 mmol/L (21-32); GLUCOSE 105 mg/dl (70-99); LIPASE 55 U/L (73-393); SODIUM 126 mmol/L (136-145)
[2018-03-28 10:41] LABS: AST/SGOT 21 U/L (15-37)
[2018-03-28] MEDS ORDERED: SODIUM CHLORIDE 0.9% 500ML 500 ML IV STA (11:33)
[2018-03-28] MEDS ORDERED: VANCOMYCIN HCL 125 MG/2.5ML SOLN PO ONE (12:00)
[2018-03-28] MEDS ORDERED: RASPBERRY SYRUP 5 ML UDP PO ONE (12:00)
[2018-03-28] MEDS ORDERED: FENTANYL 50 MCG/HR TDSY TD SCH (12:15)
[2018-03-28] MEDS ORDERED: ALUMINUM/MAGNESIUM/SIMETH (MAALOX MAX) 30 ML UDC PO PRN (12:15)
[2018-03-28] MEDS ORDERED: ONDANSETRON INJ 2 MG/ML 2 ML VIAL IV PRN (12:15)
[2018-03-28] MEDS ORDERED: ACETAMINOPHEN 325 MG TAB PO PRN (12:15)
--- NOTE | 2018-03-28 12:16 | History and Physical ---
History & Physical Date & Time of Service: Mar 28, 2018 at 12:05 Chief Complaint: Low Sodium,Abnormal Kidney Function Primary Care Physician: Rj Monahan M.D. History of Present Illness Source: patient, hospital records, other 77 y/o M Hx HTN, HPL, BPH, chronic anemia, chronic hyponatremia, CKD III. The pt had visited the ER 2 days prior due to nausea/vomiting and diarrhea. He was diagnosed with C diff and subsequently D/Cd with Flagyl. His diarrhea apparently worsened and he was not able to tolerate adequate PO intake. He presented to his PCP. Labs were repeated and he was notably hyponatremic. His renal function was impaired compared to baseline and his anemia had worsened. He was directed to attend the hospital therefore. Past Medical/Surgical History 1) HTN 2) HLD3) Depression 3) Chronic pain syndrome - dependent on high-dose narcotics 4) Benzodiazepine dependence 5) BPH 6) CKD III 7) Mild chronic hyponatremia 8) Chronic anemia - Hb 11-12 9) History of alcohol abuse 10) Osteoarthritis Surgery: 1) Hip replacement 2) Knee replacement 3) BAck surgery Family History No significant family history Noncontributory Social History Smokes 1 pack daily, former alcohol abuse - states that he can drink more whiskey than any one alive. Per his , he rarely drinks for the past 20 years. He takes an extra Librium if he wants to avoid whiskey. 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 The pt is currently highly dependent on high doses of both narcotics and benzodiazepines, although his prescriptions have not changed for several yrs. Smoking Status: Current Every Day Smoker Drug Use: none Marital Status: Immunizations History of Influenza Vaccine: Yes History of Tetanus Vaccine?: UNK History of Pneumococcal: No History of Hepatitis B Vaccine: No Allergies Coded Allergies: No Known Allergies (Verified , 03/28/18) Home Medications Scheduled Aspirin (Aspirin), 325 MG PO DAILY Chlordiazepoxide (Librium), 25 MG PO QID Chlordiazepoxide (Librium), 25 MG PO NEEDED Cholecalciferol (Vitamin D3), 100 UNITS PO DAILY Cholestyramine (Bulk) (Cholestyramine), 4 GM PO DAILY Diphenhydramine-Acetaminophen (Tylenol Pm), 1 TAB PO HS Fentanyl (Duragesic), 50 MCG TD CQ72HR Finasteride (Proscar), 5 MG PO DAILY Lisinopril (Zestril), 40 MG PO DAILY Loperamide Hcl (Imodium), 2 MG PO Q6 Metoprolol Succ (Toprol Xl) (Toprol-Xl), 25 MG PO DAILY Multivitamin (Multivitamin), 1 TAB PO DAILY Nystatin (Nystatin), 5 ML PO QID Ondasetron Odt (Zofran Odt), 4 MG SL Q6H Ranitidine (Zantac), 300 MG PO DAILY Simvastatin (Zocor), 40 MG PO QPM Tamsulosin Hcl (Flomax), 0.4 MG PO DAILY Scheduled PRN Oxycodone Hcl (Oxycodone Hcl), 10 MG PO Q4 PRN for Pain Review of Systems Constitutional: No fever, No chills, No sweats Eyes: No worsening of vision ENT: No hearing loss, No unusual epistaxis, No nasal symptoms Respiratory: No cough, No sputum, No wheezing Cardiovascular: No chest pain, No orthopnea Abdomen: + nausea, + vomiting, + diarrhea, No pain Musculoskeletal: + joint pain (Chronic) Genitourinary - Male: No hematuria, No dysuria Neurologic: No memory loss, No paralysis Psychiatric: No depression symptoms Endocrine: + fatigue Hematologic / Lymphatic: No abnormal bleeding/bruising Integumentary: No rash Allergic / Immunologic: No environmental allergies Physical Exam Vital Signs Date Time Temp Pulse Resp B/P (MAP) Pulse Ox O2 Delivery O2 Flow Rate FiO2 03/28/18 11:42 52 15 89/45 98 Room Air 03/28/18 10:01 64 03/28/18 09:44 36.6 67 18 91/54 98 Room Air General Appearance: + pertinent finding (Pale-appearing, loquacious, elderly male in no distress) Head: normocephalic Eyes: normal inspection ENT: normal ENT inspection, pharynx normal Neck: supple, no JVD Respiratory/Chest: chest non-tender, lungs clear, normal breath sounds Cardiovascular: regular rate, rhythm, no edema, no gallop Abdomen/GI: normal bowel sounds, non tender, soft Back: normal inspection, no CVA tenderness Extremities/Musculoskelatal: no calf tenderness, normal capillary refill, + pedal edema Neurologic/Psych: plate developer II-XII nml as tested, no motor/sensory deficits, alert, oriented x 3 Skin: warm/dry, + pallor Diagnostics Laboratory Results Results Past 24 Hours Test 03/28/18 10:04 03/28/18 10:16 Range/Units White Blood Count 8.13 4.8-10.8 K/uL Red Blood Count 3.57 4.7-6.1 M/uL Hemoglobin 10.6 14.0-18.0 g/dL Hematocrit 30.8 42-52 % Mean Corpuscular Volume 86.3 80-100 fL Mean Corpuscular Hemoglobin 29.7 25-34 pg Mean Corpuscular Hemoglobin Concent 34.4 32-36 g/dl Platelet Count 257 130-400 K/uL Mean Platelet Volume 9.5 7.4-10.4 fL Neutrophils (%) (Auto) 70.3 % Lymphocytes (%) (Auto) 17.6 % Monocytes (%) (Auto) 8.0 % Eosinophils (%) (Auto) 3.2 % Basophils (%) (Auto) 0.5 % Neutrophils # (Auto) 5.72 1.4-6.5 K/uL Lymphocytes # (Auto) 1.43 1.2-3.4 K/uL Monocytes # (Auto) 0.65 0.11-0.59 K/uL Eosinophils # (Auto) 0.26 0-0.5 K/uL Basophils # (Auto) 0.04 0-0.2 K/uL RDW Standard Deviation 40.2 36.4-46.3 fL RDW Coefficient of Variation 12.6 11.5-14.5 % Immature Granulocyte % (Auto) 0.4 % Immature Granulocyte # (Auto) 0.03 0.00-0.02 K/uL Sodium Level 126 136-145 mmol/L Potassium Level 4.0 3.5-5.1 mmol/L Chloride Level 95 98-107 mmol/L Carbon Dioxide Level 23 21-32 mmol/L Anion Gap 8.0 3-11 mmol/L Blood Urea Nitrogen 36 7-18 mg/dl Creatinine 2.35 0.60-1.40 mg/dl Estimated GFR () 29.6 Estimated GFR (Non- 25.5 BUN/Creatinine Ratio 15.1 10-20 Random Glucose 105 70-99 mg/dl Calcium Level 7.6 8.5-10.1 mg/dl Total Bilirubin 0.2 0.2-1 mg/dl Direct Bilirubin < 0.1 0-0.2 mg/dl Aspartate Amino Transf (AST/SGOT) 21 15-37 U/L Alanine Aminotransferase (ALT/SGPT) 17 12-78 U/L Alkaline Phosphatase 74 45-117 U/L Total Protein 6.2 6.4-8.2 gm/dl Albumin 2.9 3.4-5.0 gm/dl Lipase 55 73-393 U/L Lactic Acid Level 0.7 0.4-2.0 mmol/L EKG Sinus bradycardia Impression Assessment and Plan 77 y/o M Hx HTN, HPL, BPH, chronic anemia, chronic hyponatremia, CKD III. The pt had visited the ER 2 days prior due to nausea/vomiting and diarrhea. He was diagnosed with C diff and subsequently D/Cd with Flagyl. His diarrhea apparently worsened and he was not able to tolerate adequate PO intake. He presented to his PCP. Labs were repeated and he was notably hyponatremic. His renal function was impaired compared to baseline and his anemia had worsened. He was directed to attend the hospital therefore. 1) C- diff - N/V/D - Pt will be placed on oral vancomycin. As he has a propensity to drink whiskey occasionally, Flagyl may be a poor choice. He will remian on a clear diet overnight. IVF provided. 2) Hyponatremia and mild renal impairment are likely due to hypovolemia. We will provide IVF and trend his electrolytes. Both issue are chronic and renal function is close to baseline. 3) Anemia - unclear etiology - appears acute. There may be some blood loss in the stool, however, the pt denies this. We will trend his Hb and request a FOB. 4) Chronic pain - will remain on his home dose of Fentanyl and Oxycodone. 5) ETOH abuse controlled with Librium - we have continued his QID dose as scheduled to avoid withdrawal. 6) HTN - ARB is held in lite of renal function - BP was low-normal on admission 7) The pt is bradycardic on admission - he is not having cardiac symptoms so that this may well be chronic - we will trend and hold his AM Metoprolol as he may need a dose adjustment. Full code - SCDs due to acute anemia Total time for this admit including review of labs, meds, imaging, records - discussion with pt and ER attending - 37 min Resuscitation Status VTE Prophylaxis Will order VTE Prophylaxis: Yes
[2018-03-28 13:37] VITALS: BP 106/59; PULSE 43; TEMP 36.7; O2SAT 98; Ht 177.8 cm; Wt 93.9 kg
[2018-03-28] MEDS: NSS + 20MEQ KCL 1000ML 1,000 ML IV SCH (14:45)
[2018-03-28 15:00] LABS: CALCIUM 7.4 mg/dl (8.5-10.1); CREATININE 2.14 mg/dl (0.60-1.40); POTASSIUM 4.1 mmol/L (3.5-5.1)
[2018-03-28] MEDS: OXYCODONE HCL IR 5 MG TAB (IMMEDIATE RELEASE) PO PRN ×2 (15:23→21:25)
[2018-03-28] MEDS: RASPBERRY SYRUP 5 ML UDP PO SCH ×2 (15:24→21:32)
[2018-03-28] MEDS: VANCOMYCIN HCL 125 MG/2.5ML SOLN PO SCH ×2 (15:24→21:32)
[2018-03-28] MEDS: CHECK FENTANYL PATCH PLACEMENT SCH (16:34)
--- NOTE | 2018-03-28 17:23 | EMERGENCY ROOM VISIT NOTE ---
History Report prepared by Laura: Silvia Saldana Under the Supervision of: Dr. Wayne Rivera D.O. First contact with patient: 09:47 Chief Complaint: ABNORMAL LABS Stated Complaint: LOW SODIUM,ABNORMAL KIDNEY FUNCTION History of Present Illness The patient is a 77 year old male who presents to the Emergency Room with complaints of abnormal lab work. He states he was told his Sodium level is down and kidney function is elevated. The patient was seen here 2 days ago for abdominal pain and diarrhea. After he was seen in the ED, he was called and told lab results showed C-Diff and abnormal labs. The patient was placed on Flagyl here in the ED. He states he is still having upward of 10 episodes of diarrhea a day. He has not been eating or drinking normally yet. He denies any chest pain or shortness of breath. He denies any abdominal pain or urinary symptoms. 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 A total of 10 systems reviewed and were otherwise negative. Past Medical & Surgical Medical Problems: (1) Benign hypertension (2) Chronic pain syndrome (3) Hyperlipidemia (4) Hyponatremia Family History No significant family history Social History Smoking Status: Current Every Day Smoker Alcohol Use: occasionally Drug Use: none Marital Status: Housing Status: lives with family Occupation Status: retired Current/Historical Medications Scheduled Aspirin (Aspirin), 325 MG PO DAILY Chlordiazepoxide (Librium), 25 MG PO QID Chlordiazepoxide (Librium), 25 MG PO NEEDED Cholecalciferol (Vitamin D3), 100 UNITS PO DAILY Cholestyramine (Bulk) (Cholestyramine), 4 GM PO DAILY Diphenhydramine-Acetaminophen (Tylenol Pm), 1 TAB PO HS Fentanyl (Duragesic), 50 MCG TD CQ72HR Finasteride (Proscar), 5 MG PO DAILY Lisinopril (Zestril), 40 MG PO DAILY Loperamide Hcl (Imodium), 2 MG PO Q6 Metoprolol Succ (Toprol Xl) (Toprol-Xl), 25 MG PO DAILY Multivitamin (Multivitamin), 1 TAB PO DAILY Nystatin (Nystatin), 5 ML PO QID Ondasetron Odt (Zofran Odt), 4 MG SL Q6H Ranitidine (Zantac), 300 MG PO DAILY Simvastatin (Zocor), 40 MG PO QPM Tamsulosin Hcl (Flomax), 0.4 MG PO DAILY Scheduled PRN Oxycodone Hcl (Oxycodone Hcl), 10 MG PO Q4 PRN for Pain Allergies Coded Allergies: No Known Allergies (Verified , 03/28/18) Physical Exam Vital Signs Date Time Temp Pulse Resp B/P (MAP) Pulse Ox O2 Delivery O2 Flow Rate FiO2 03/28/18 12:04 53 18 86/55 97 Room Air 03/28/18 11:42 52 15 89/45 98 Room Air 03/28/18 10:01 64 03/28/18 09:44 36.6 67 18 91/54 98 Room Air Physical Exam GENERAL: Sitting up in bed, alert, well appearing, well nourished, no distress, non-toxic EYE EXAM: normal conjunctiva. OROPHARYNX: no exudate, no erythema, lips, buccal mucosa, and tongue normal and mucous membranes are dry NECK: supple, no nuchal rigidity, no adenopathy, non-tender LUNGS: Clear to auscultation. Normal chest wall mechanics HEART: no murmurs, S1 normal and S2 normal ABDOMEN: abdomen soft, minimal diffuse tenderness, normo-active bowel sounds, no masses, no rebound or guarding. BACK: Back is symmetrical on inspection and there is no deformity, no midline tenderness, no CVA tenderness. SKIN: no rashes and no bruising UPPER EXTREMITIES: upper extremities are grossly normal. LOWER EXTREMITIES: No pitting edema. NEURO EXAM: Normal sensorium, cranial nerves II-XII grossly intact, normal speech, no gross weakness of arms, no gross weakness of legs. Gross sensation intact. Medical Decision & Procedures Laboratory Results 03/28/18 10:04 Red Blood Count 3.57, Mean Corpuscular Volume 86.3, Mean Corpuscular Hemoglobin 29.7, Mean Corpuscular Hemoglobin Concent 34.4, Mean Platelet Volume 9.5, Neutrophils (%) (Auto) 70.3, Lymphocytes (%) (Auto) 17.6, Monocytes (%) (Auto) 8.0, Eosinophils (%) (Auto) 3.2, Basophils (%) (Auto) 0.5, Neutrophils # (Auto) 5.72, Lymphocytes # (Auto) 1.43, Monocytes # (Auto) 0.65, Eosinophils # (Auto) 0.26, Basophils # (Auto) 0.04 Test 03/28/18 10:04 03/28/18 10:16 White Blood Count 8.13 K/uL (4.8-10.8) Red Blood Count 3.57 M/uL (4.7-6.1) Hemoglobin 10.6 g/dL (14.0-18.0) Hematocrit 30.8 % (42-52) Mean Corpuscular Volume 86.3 fL (80-100) Mean Corpuscular Hemoglobin 29.7 pg (25-34) Mean Corpuscular Hemoglobin Concent 34.4 g/dl (32-36) Platelet Count 257 K/uL (130-400) Mean Platelet Volume 9.5 fL (7.4-10.4) Neutrophils (%) (Auto) 70.3 % Lymphocytes (%) (Auto) 17.6 % Monocytes (%) (Auto) 8.0 % Eosinophils (%) (Auto) 3.2 % Basophils (%) (Auto) 0.5 % Neutrophils # (Auto) 5.72 K/uL (1.4-6.5) Lymphocytes # (Auto) 1.43 K/uL (1.2-3.4) Monocytes # (Auto) 0.65 K/uL (0.11-0.59) Eosinophils # (Auto) 0.26 K/uL (0-0.5) Basophils # (Auto) 0.04 K/uL (0-0.2) RDW Standard Deviation 40.2 fL (36.4-46.3) RDW Coefficient of Variation 12.6 % (11.5-14.5) Immature Granulocyte % (Auto) 0.4 % Immature Granulocyte # (Auto) 0.03 K/uL (0.00-0.02) Total Bilirubin 0.2 mg/dl (0.2-1) Direct Bilirubin < 0.1 mg/dl (0-0.2) Aspartate Amino Transf (AST/SGOT) 21 U/L (15-37) Alanine Aminotransferase (ALT/SGPT) 17 U/L (12-78) Alkaline Phosphatase 74 U/L (45-117) Total Protein 6.2 gm/dl (6.4-8.2) Albumin 2.9 gm/dl (3.4-5.0) Lipase 55 U/L (73-393) Lactic Acid Level 0.7 mmol/L (0.4-2.0) Laboratory results per my review. Medications Administered Medications (Trade) Dose Ordered Sig/Natalia Route Start Time Stop Time Status Last Admin Dose Admin Sodium Chloride 2,000 ml @ 999 mls/hr Q2H1M STAT IV 03/28/18 09:55 03/28/18 11:55 DC 03/28/18 09:55 999 MLS/HR Sodium Chloride 500 ml @ 999 mls/hr Q31M STAT IV 03/28/18 11:33 03/28/18 12:03 DC 03/28/18 11:33 999 MLS/HR Vancomycin HCl (Vancomycin Oral Soln) 125 mg Q6 ONCE PO 03/28/18 12:00 03/28/18 12:01 DC 03/28/18 12:20 125 MG Raspberry (Raspberry Syrup 5ml Cup) 5 ml Q6 ONCE PO 03/28/18 12:00 03/28/18 12:01 DC 03/28/18 12:20 5 ML ED Course ED COURSE: Vital signs were reviewed and showed the patient is hypotensive The patients medical record was reviewed The above diagnostic studies were performed and reviewed. ED treatments and interventions as stated above. 0950: The patient was evaluated in room A2. A complete history and physical examination was performed. 0955: NSS 2000 ml @ 999 mls/hr IV. 1133: NSS 500 ml @ 999 mls/hr IV. 1135: I discussed the patients case with Dr. Snyder, [facility] Hospitalist. The patient will be further evaluated. 1200: Raspberry Syrup 5 ml PO, Vancomycin 125 mg PO. 1205: Upon reevaluation, the patient is resting comfortably. I discussed my findings with the patient and he understands and agrees with the treatment plan. Based on the patients age, coexisting illnesses, exam and lab findings the decision to treat as an inpatient was made. The patient remained stable while under my care. The patient will be evaluated for further management. Medical Decision Differential diagnoses includes but is not limited to gastritis, peptic ulcer disease, GERD, gallbladder disease, pancreatitis, small bowel obstruction, acute coronary syndrome, pericarditis, ischemic bowel, irritable bowel disease, irritable bowel syndrome, appendicitis, diverticulitis, malignancy, hernia, urinary tract infection, torsion, perforation, trauma, infectious. Patient is a 77-year-old male who presents the ER for diarrhea and vomiting. The vomiting has resolved diarrhea has persisted. He is going still about 10 times a day. He was recently diagnosed with C. difficile. Found to have a slightly bumped creatinine and low sodium. Blood work was repeated by PCP and creatinine was still elevated and sodium had dropped to 1.6. Patient was referred in. On exam patient does appear to be dehydrated. He is given IV fluids. Blood work was obtained and showed no significant leukocytosis. Patient did have a sodium of 126. Creatinine was slightly elevated at 2.4. Patient was given additional fluids and oral vancomycin and admitted to internal medicine. I do believe that this is all secondary to dehydration and C. difficile. Medication Reconcilliation Current Medication List: was personally reviewed by me Blood Pressure Screening Patient's blood pressure: Low blood pressure Consults Time Called: 1132 Consulting Phys[facility] Return[facility] Call: [phone] I discussed the patients case with Dr. Snyder, [facility]. The patient will be further evaluated. Impression Primary Impression: QIANA (acute kidney injury) Additional Impressions: Diarrhea C. difficile colitis Hyponatremia Hypokalemia Scribe Attestation The scribe's documentation has been prepared under my direction and personally reviewed by me in its entirety. I confirm that the note above accurately reflects all work, treatment, procedures, and medical decision making performed by me. Departure Information Dispostion Being Evaluated By Hospitalist Referrals Rj Monahan M.D. (PCP) Patient Instructions My [facility] Problem Qualifiers Additional Impressions: Diarrhea Diarrhea type: unspecified type Qualified Codes: R19.7 - Diarrhea, unspecified
[2018-03-28] MEDS: CHLORDIAZEPOXIDE 25 MG CAP PO SCH ×2 (17:33→21:25)
[2018-03-28] MEDS ORDERED: VANCOMYCIN HCL 125 MG/2.5ML SOLN PO SCH (18:00)
[2018-03-28] MEDS ORDERED: ACETAMINOPHEN 500 MG TAB PO PRN (21:00)
[2018-03-28] MEDS: SIMVASTATIN 40 MG TAB PO SCH (21:26)
[2018-03-28 23:10] VITALS: BP 109/61; PULSE 71; TEMP 36.3; O2SAT 97
[2018-03-29] MEDS: NSS + 20MEQ KCL 1000ML 1,000 ML IV SCH (00:22)
[2018-03-29] MEDS: CHECK FENTANYL PATCH PLACEMENT SCH ×3 (00:29→16:21)
[2018-03-29] MEDS: OXYCODONE HCL IR 5 MG TAB (IMMEDIATE RELEASE) PO PRN ×3 (03:00→18:13)
[2018-03-29] MEDS: VANCOMYCIN HCL 125 MG/2.5ML SOLN PO SCH ×4 (05:02→20:53)
[2018-03-29] MEDS: RASPBERRY SYRUP 5 ML UDP PO SCH ×4 (05:02→20:53)
[2018-03-29 06:47] LABS: HEMATOCRIT 30.7 % (42-52); HEMOGLOBIN 10.3 g/dL (14.0-18.0); MEAN CELL VOLUME 88.7 fL (80-100); MEAN CORPUSCULAR HEMOGLOBIN 29.8 pg (25-34); MEAN CORPUSCULAR HGB CONC 33.6 g/dl (32-36); MEAN PLATELET VOLUME 9.2 fL (7.4-10.4); PLATELET COUNT 223 K/uL (130-400); RED CELL DISTRIBUTION WIDTH CV 13.1 % (11.5-14.5); RED CELL DISTRIBUTION WIDTH SD 41.7 fL (36.4-46.3); WHITE BLOOD COUNT 8.43 K/uL (4.8-10.8)
[2018-03-29 07:05] VITALS: BP 123/64; PULSE 70; TEMP 36.5; O2SAT 99
[2018-03-29 07:18] LABS: CALCIUM 7.4 mg/dl (8.5-10.1); CREATININE 1.76 mg/dl (0.60-1.40); POTASSIUM 4.2 mmol/L (3.5-5.1)
[2018-03-29] MEDS ORDERED: FENTANYL PATCH REMOVE & WASTE SCH (07:59)
[2018-03-29] MEDS ORDERED: FENTANYL 50 MCG/HR TDSY TD SCH (08:00)
--- NOTE | 2018-03-29 08:11 | Clinical Documentation Query ---
CLINICAL DOCUMENTATION QUERY 77-y/o male with C.diff and hypovolemia presents with elevated BUN and Creatinine. In your clinical opinion is this patient being managed for: ( x ) QIANA in setting of C.Diff and hypovolemia treated and resolved ( ) Not Agree ( ) Other explanation of clinical findings (No explanation is considered a No Response) ( ) Unable to determine ( ) Need to Discuss (Phone CDS or qliq) (No discussion is considered a No Response) The medical record reflects the following clinical findings, treatment, and risk factors. Clinical Indicators: BUN 36, Creatinine 2.35, GFR 25.5. Treatment: IVF's serial PRP's Risk Factors: Age, C.diff, CKD III Please clarify and document your clinical opinion in the progress notes and discharge summary. Terms such as "probable", "suspected", "likely", "questionable", "possible", or "still to be ruled out" are acceptable. IF IN AGREEMENT, YOU MUST DOCUMENT ABOVE DIAGNOSTIC STATEMENT IN DAILY PROGRESS NOTES AND DISCHARGE SUMMARY. This document is not part of the patient's record. Thank You, Brayan Meadows, CHLOE [phone] & via qlicCONNECT
[2018-03-29 08:15] VITALS: O2SAT 99
[2018-03-29] MEDS: RANITIDINE HCL 150 MG TAB PO SCH (08:22)
[2018-03-29] MEDS: ASPIRIN 325 MG ECTAB PO SCH (08:24)
[2018-03-29] MEDS: TAMSULOSIN HCL 0.4 MG CAP PO SCH (08:25)
[2018-03-29] MEDS: FINASTERIDE 5 MG TAB PO SCH (08:26)
[2018-03-29] MEDS: CHLORDIAZEPOXIDE 25 MG CAP PO SCH ×4 (08:35→20:52)
[2018-03-29] MEDS ORDERED: CHOLESTYRAMINE LIGHT 4 GM PKT PO SCH (09:00)
[2018-03-29] MEDS: CHOLESTYRAMINE LIGHT 4 GM PKT PO SCH ×2 (11:04→22:08)
[2018-03-29] MEDS: MAGNESIUM SULFATE 1GM / D5W 100 ML IV SCH ×2 (11:04→12:55)
[2018-03-29] MEDS: THIAMINE HCL 100 MG TAB PO SCH ×2 (11:05→20:52)
[2018-03-29] MEDS: METOPROLOL SUCC 25MG EXT REL TAB PO SCH (11:09)
[2018-03-29] MEDS: LACTOBACILLUS ACIDOPHILUS (FLORANEX) TAB PO SCH ×2 (12:56→16:58)
[2018-03-29] MEDS ORDERED: HALOPERIDOL 5 MG TAB PO PRN (13:00)
--- NOTE | 2018-03-29 13:01 | Progress Note ---
Subjective Date of Service: Mar 29, 2018. Subjective Pt evaluation today including: conversation w/ patient, conversation w/ family ( at bedside), physical exam, chart review, lab review, review of studies, review of inpatient medication list Pain: draft in room is causing legs to ache PO Intake: tolerating clears Voiding: voiding difficulty (mild) patient somewhat argumentative about staying in the hospital, stating "I've been here 3 days -- I have to get out of here" reminded him he had only been hospitalized for <24 hours abd pain resolved still w/ copious diarrhea unsteady on feet no nausea/emesis when asked about UTI symptoms he reports "maybe" he had had some discomfort a few days ago mentions he has chronic memory trouble but it had been worse in the last few days w/ his illness uses afo's for b/l foot drop Problem List Medical Problems: (1) QIANA (acute kidney injury) Status: Acute (2) C. difficile colitis Status: Acute (3) Contusion of leg, right Status: Acute (4) Diarrhea Status: Acute (5) Hypokalemia Status: Acute (6) Neck sprain Status: Acute Review of Systems Constitutional: No fever, No chills Respiratory: No shortness of breath Cardiac: No chest pain Abdomen: + diarrhea, No pain, No nausea, No vomiting Objective Vital Signs Date Time Temp Pulse Resp B/P (MAP) Pulse Ox O2 Delivery O2 Flow Rate FiO2 03/29/18 08:15 99 Room Air 03/29/18 07:05 36.5 70 20 123/64 (83) 99 Room Air 03/29/18 00:30 Room Air 03/28/18 23:10 36.3 71 20 109/61 (77) 97 Room Air 03/28/18 13:37 36.7 43 16 106/59 98 Room Air 03/28/18 13:19 48 16 100/47 95 Room Air Physical Exam General Appearance: no apparent distress, + pertinent finding (very talkative, argumentative) ENT: pharynx normal Neck: no JVD Respiratory/Chest: lungs clear, no respiratory distress, no accessory muscle use Cardiovascular: regular rate, rhythm, no gallop, no murmur Abdomen: normal bowel sounds, non tender, soft, no organomegaly Extremities: no pedal edema Neurologic/Psychiatric: alert, + disoriented Skin: no rash Comments: musculo - foot deformities b/l Laboratory Results Last 24 Hours Test 03/28/18 14:17 03/28/18 14:30 03/28/18 20:21 03/28/18 23:45 Hemoglobin 10.6 g/dL 9.7 g/dL Sodium Level 128 mmol/L Potassium Level 4.1 mmol/L Chloride Level 101 mmol/L Carbon Dioxide Level 19 mmol/L Anion Gap 8.0 mmol/L Blood Urea Nitrogen 34 mg/dl Creatinine 2.14 mg/dl Est Creatinine Clear Calc Drug Dose 32.7 ml/min Estimated GFR () 33.2 Estimated GFR (Non- 28.6 BUN/Creatinine Ratio 16.1 Random Glucose 96 mg/dl Calcium Level 7.4 mg/dl Urine Color YELLOW Urine Appearance CLEAR Urine pH 5.0 Urine Specific Irving 1.009 Urine Protein NEG Urine Glucose (UA) NEG Urine Ketones NEG Urine Occult Blood NEG Urine Nitrite POS Urine Bilirubin NEG Urine Urobilinogen NEG Urine Leukocyte Esterase TRACE Urine WBC (Auto) 1-5 /hpf Urine RBC (Auto) 0-4 /hpf Urine Hyaline Casts (Auto) 0 /lpf Urine Epithelial Cells (Auto) 0-5 /lpf Urine Bacteria (Auto) 2+ Stool Occult Blood NEGATIVE Test 03/29/18 01:16 03/29/18 06:37 Bedside Glucose 92 mg/dl White Blood Count 8.43 K/uL Red Blood Count 3.46 M/uL Hemoglobin 10.3 g/dL Hematocrit 30.7 % Mean Corpuscular Volume 88.7 fL Mean Corpuscular Hemoglobin 29.8 pg Mean Corpuscular Hemoglobin Concent 33.6 g/dl RDW Standard Deviation 41.7 fL RDW Coefficient of Variation 13.1 % Platelet Count 223 K/uL Mean Platelet Volume 9.2 fL Sodium Level 131 mmol/L Potassium Level 4.2 mmol/L Chloride Level 102 mmol/L Carbon Dioxide Level 22 mmol/L Anion Gap 7.0 mmol/L Blood Urea Nitrogen 25 mg/dl Creatinine 1.76 mg/dl Est Creatinine Clear Calc Drug Dose 39.8 ml/min Estimated GFR () 42.0 Estimated GFR (Non- 36.2 BUN/Creatinine Ratio 14.0 Random Glucose 97 mg/dl Calcium Level 7.4 mg/dl Magnesium Level 1.3 mg/dl Assessment and Plan 77yo male - 1. c diff colitis - day #2 of oral vancomycin / 14-day course planned. Add lactinex. Increase questran powder to BID dosing. reports he has chronic diarrhea and had c. diff about [address] abd/pelvis from 03/26 with small bowel abnormalities - could he have underlying IBD in setting of c diff colitis? 2. ?GNR UTI - possibly symptomatic - keflex 500 BID while awaiting urine cx. 3. metabolic encephalopathy - 2nd to hyponatremia, UTI, c. diff colitis, etc. Ongoing. 4. probable underlying cognitive impairment/dementia - noted; haldol 2.5mg po q6h prn for severe delirium/agitation. 5. acute/chronic hyponatremia - acute component 2nd to volume depletion from # 1. Improving. 1 more liter of fluid then saline lock. BMP later today and in am. 6. hypomagnesemia - likely due to diarrhea; replace IV, then repeat mag level later today. 7. acute kidney injury - 2nd to #1 above - improved. Cr now at baseline. 8. CKD stage 3 - creatinine back to baseline. 9. BPH - continue outpatient meds. 10. b/l foot drop - use AFOs, fall precautions, and PT, OT. 11. HTN - control adequate. 12. chronic pain syndrome - remains on fentanyl patch. 13. chronic benzodiazepine usage - uses librium qid at home; continue; high risk of withdrawal if stopped. 14. tobacco dependence - nicoderm patch. 15. h/o etoh abuse - increase thiamine to 200mg BID. 16. DVT proph - heparin 5000 BID. the patient is NOT fit to be discharged since he is confused he cannot make medical decisions on his behalf; supports that he continue to remain hospitalized Continued [facility] stay due to: inadequate po fluid intake, ambulation difficulties , multiple IV medications needed Discharge planning: uncertain
[2018-03-29] MEDS ORDERED: SODIUM CHLORIDE 0.9% 1000ML 1,000 ML IV SCH (13:15)
[2018-03-29] MEDS ORDERED: CEPHALEXIN MONOHYDRATE 500 MG CAP PO ONE (13:30)
[2018-03-29 13:42] LABS: INR 1.2 (0.9-1.1)
[2018-03-29] MEDS ORDERED: THIAMINE HCL 100 MG TAB PO SCH (14:00)
[2018-03-29 14:56] VITALS: BP 107/53; PULSE 81; TEMP 36.8; O2SAT 94
[2018-03-29 17:45] LABS: CALCIUM 7.6 mg/dl (8.5-10.1); CREATININE 1.63 mg/dl (0.60-1.40); POTASSIUM 5.4 mmol/L (3.5-5.1)
[2018-03-29] MEDS ORDERED: NICOTINE 14 MG/24 HR TDSY TD ONE (20:41)
[2018-03-29] MEDS: SIMVASTATIN 40 MG TAB PO SCH (20:53)
[2018-03-29] MEDS: HEPARIN SOD 5000 UNIT/0.5 ML CARP SQ SCH (20:54)
[2018-03-29] MEDS ORDERED: CEPHALEXIN MONOHYDRATE 500 MG CAP PO SCH (21:00)
[2018-03-29 22:24] VITALS: BP 155/67; PULSE 74; TEMP 36.7; O2SAT 98
[2018-03-30] MEDS: OXYCODONE HCL IR 5 MG TAB (IMMEDIATE RELEASE) PO PRN ×5 (01:05→20:55)
[2018-03-30] MEDS: RASPBERRY SYRUP 5 ML UDP PO SCH ×4 (05:24→21:18)
[2018-03-30] MEDS: VANCOMYCIN HCL 125 MG/2.5ML SOLN PO SCH ×4 (05:24→21:18)
[2018-03-30 07:07] VITALS: BP 124/63; PULSE 68; TEMP 37.3; O2SAT 92
[2018-03-30 07:42] LABS: CALCIUM 7.5 mg/dl (8.5-10.1); CREATININE 1.47 mg/dl (0.60-1.40); POTASSIUM 4.7 mmol/L (3.5-5.1)
[2018-03-30 08:10] VITALS: O2SAT 92
[2018-03-30] MEDS: NICOTINE 14 MG/24 HR TDSY TD SCH (09:00)
[2018-03-30] MEDS: HEPARIN SOD 5000 UNIT/0.5 ML CARP SQ SCH ×2 (10:15→21:18)
[2018-03-30] MEDS: CHOLESTYRAMINE LIGHT 4 GM PKT PO SCH ×2 (10:18→21:07)
[2018-03-30] MEDS: LACTOBACILLUS ACIDOPHILUS (FLORANEX) TAB PO SCH ×3 (10:19→17:56)
[2018-03-30] MEDS: THIAMINE HCL 100 MG TAB PO SCH ×2 (10:19→20:57)
[2018-03-30] MEDS: TAMSULOSIN HCL 0.4 MG CAP PO SCH (10:19)
[2018-03-30] MEDS: ASPIRIN 325 MG ECTAB PO SCH (10:20)
[2018-03-30] MEDS: METOPROLOL SUCC 25MG EXT REL TAB PO SCH (10:20)
[2018-03-30] MEDS: RANITIDINE HCL 150 MG TAB PO SCH (10:21)
[2018-03-30] MEDS: CHLORDIAZEPOXIDE 25 MG CAP PO SCH ×4 (10:21→20:54)
[2018-03-30] MEDS: FINASTERIDE 5 MG TAB PO SCH (10:21)
[2018-03-30] MEDS: SULFAMETHOXAZOLE/TRIMETHOPRIM DS 800/160MG TAB PO SCH ×2 (10:22→21:00)
[2018-03-30] MEDS: CHECK FENTANYL PATCH PLACEMENT SCH ×4 (10:29→23:34)
[2018-03-30 15:56] VITALS: BP 140/54; PULSE 74; TEMP 36.5; O2SAT 96
--- NOTE | 2018-03-30 18:09 | Progress Note ---
Subjective Date of Service: Mar 30, 2018. Subjective Pt evaluation today including: conversation w/ patient, conversation w/ family ( at bedside), physical exam, chart review, lab review, conversation w/ payroll consultant (PT, OT), review of inpatient medication list Pain: denies abd pain today PO Intake: eating well Voiding: incontinence, voiding difficulty patient again adamant "that I'm leaving at lunch-time tomorrow" he also stated "I don't care (referring to his ) about what she thinks" [ this was in the context of discussing a safe discharge plan] diarrhea by report markedly better he seemed sleepy during the exam and agreed with that statement denied any dyspnea voiding is still about the same Problem List Medical Problems: (1) QIANA (acute kidney injury) Status: Acute (2) C. difficile colitis Status: Acute (3) Contusion of leg, right Status: Acute (4) Diarrhea Status: Acute (5) Hypokalemia Status: Acute (6) Neck sprain Status: Acute Review of Systems Constitutional: No fever, No chills Respiratory: No cough, No shortness of breath, No dyspnea on exertion Cardiac: No chest pain Abdomen: No pain, No nausea, No vomiting Objective Vital Signs Date Time Temp Pulse Resp B/P (MAP) Pulse Ox O2 Delivery O2 Flow Rate FiO2 03/30/18 15:56 36.5 74 20 140/54 (82) 96 Room Air 03/30/18 07:07 37.3 68 20 124/63 (83) 92 Room Air 03/30/18 00:15 Room Air 03/29/18 22:24 36.7 74 16 155/67 (96) 98 Room Air Physical Exam General Appearance: no apparent distress, + pertinent finding (looks tired today) ENT: pharynx normal Neck: no JVD Respiratory/Chest: lungs clear, no respiratory distress, no accessory muscle use Cardiovascular: regular rate, rhythm, no gallop, no murmur Abdomen: normal bowel sounds, non tender, soft, no organomegaly, + distended ( minimal ) Extremities: no pedal edema Neurologic/Psychiatric: alert, + motor weakness (b/l foot drop ), + disoriented Laboratory Results Last 24 Hours Test 03/30/18 06:38 Sodium Level 135 mmol/L Potassium Level 4.7 mmol/L Chloride Level 108 mmol/L Carbon Dioxide Level 20 mmol/L Anion Gap 6.0 mmol/L Blood Urea Nitrogen 16 mg/dl Creatinine 1.47 mg/dl Est Creatinine Clear Calc Drug Dose 47.7 ml/min Estimated GFR () 52.2 Estimated GFR (Non- 45.0 BUN/Creatinine Ratio 10.7 Random Glucose 92 mg/dl Calcium Level 7.5 mg/dl Assessment and Plan 77yo male - 1. c diff colitis - day #3 of oral vancomycin / 14-day course. IMPROVED. Cont questran powder and lactinex. reports he has chronic diarrhea and had c. diff about [address] abd/pelvis from 03/26 with small bowel abnormalities - could he have underlying IBD in setting of c diff colitis? I have recommended GI referral after d/c to ensure he doesn't have IBD or some other chronic GI issue. 2. enterobacter UTI - possibly symptomatic - d/c keflex and change to bactrim. BERTA tomorrow to exclude underlying prostatitis. 3. metabolic encephalopathy - 2nd to hyponatremia, UTI, c. diff colitis, etc. Ongoing, but suspect we are near or at his baseline mental status. 4. probable underlying cognitive impairment/dementia - noted; haldol 2.5mg po q6h prn for severe delirium/agitation. 5. acute/chronic hyponatremia - resolved. Na normal today. 6. hypomagnesemia - resolved. 7. acute kidney injury - resolved. 8. CKD stage 3 - creatinine back to baseline. 9. BPH - continue outpatient meds. 10. b/l foot drop - use AFOs, fall precautions, and PT, OT. 11. HTN - control adequate. 12. chronic pain syndrome - remains on fentanyl patch. 13. chronic benzodiazepine usage - uses librium qid at home; continue; high risk of withdrawal if stopped. 14. tobacco dependence - nicoderm patch. 15. h/o etoh abuse -thiamine 200mg BID. 16. DVT proph - heparin 5000 BID. 17. FEN - advance diet to low fiber. BMP am. observe again overnight if from a functional and physical standpoint he is at baseline he can return home w/ tomorrow the patient would refuse to go to rehab anyway and I believe his would not force him to go anywhere but home Continued [facility] stay due to: ambulation difficulties Discharge planning: home with home health
[2018-03-30] MEDS: SIMVASTATIN 40 MG TAB PO SCH (21:00)
[2018-03-30 23:32] VITALS: BP 115/62; PULSE 85; TEMP 36.6; O2SAT 95
[2018-03-31] MEDS: OXYCODONE HCL IR 5 MG TAB (IMMEDIATE RELEASE) PO PRN (03:07)
[2018-03-31] MEDS: VANCOMYCIN HCL 125 MG/2.5ML SOLN PO SCH ×2 (04:07→11:20)
[2018-03-31] MEDS: RASPBERRY SYRUP 5 ML UDP PO SCH ×2 (04:07→11:17)
[2018-03-31 08:01] VITALS: BP 147/69; PULSE 77; TEMP 36.7; O2SAT 94
[2018-03-31 08:23] LABS: CALCIUM 8.1 mg/dl (8.5-10.1); CREATININE 1.42 mg/dl (0.60-1.40); POTASSIUM 4.9 mmol/L (3.5-5.1)
[2018-03-31] MEDS: NICOTINE 14 MG/24 HR TDSY TD SCH (09:00)
[2018-03-31] MEDS: ASPIRIN 325 MG ECTAB PO SCH (09:07)
[2018-03-31] MEDS: CHLORDIAZEPOXIDE 25 MG CAP PO SCH ×2 (09:07→13:26)
[2018-03-31] MEDS: CHECK FENTANYL PATCH PLACEMENT SCH (09:07)
[2018-03-31] MEDS: LACTOBACILLUS ACIDOPHILUS (FLORANEX) TAB PO SCH ×2 (09:09→11:21)
[2018-03-31] MEDS: METOPROLOL SUCC 25MG EXT REL TAB PO SCH (09:09)
[2018-03-31] MEDS: RANITIDINE HCL 150 MG TAB PO SCH (09:10)
[2018-03-31] MEDS: SULFAMETHOXAZOLE/TRIMETHOPRIM DS 800/160MG TAB PO SCH (09:11)
[2018-03-31] MEDS: TAMSULOSIN HCL 0.4 MG CAP PO SCH (09:11)
[2018-03-31] MEDS: THIAMINE HCL 100 MG TAB PO SCH (09:13)
[2018-03-31] MEDS: FINASTERIDE 5 MG TAB PO SCH (09:13)
[2018-03-31] MEDS: HEPARIN SOD 5000 UNIT/0.5 ML CARP SQ SCH (09:16)
[2018-03-31] MEDS: CHOLESTYRAMINE LIGHT 4 GM PKT PO SCH (11:16)
[2018-03-31] MEDS ORDERED: CIPR-255 PO (12:02)
[2018-03-31] MEDS ORDERED: SACC250C3 PO (13:27)
[2018-03-31] MEDS ORDERED: VANC5CAP PO (13:27)
[2018-03-31] MEDS ORDERED: CHOLPOW PO (13:27)
[2018-03-31 13:35] VITALS: BP 147/69; PULSE 77; TEMP 36.7; O2SAT 94
--- NOTE | 2018-03-31 13:44 | Discharge Instructions ---
Discharge Instructions Date of Service Mar 31, 2018. Admission Reason for Admission: Clostridium Difficile Diarrhea illness, dehydration, low sodium level Discharge Discharge Diagnosis / Problem: C diff colitis/diarrhea - improved; dehydration/ low sodium - resolved; UTI Discharge Goals Goal(s): Learn about illness, Diagnostic testing, Therapeutic intervention Activity Recommendations Activity Limitations: resume your previous activity (as tolerated ) . Instructions / Follow-Up Instructions / Follow-Up From Dr. Chou - 1. C diff diarrhea infection - you are finally improving with use of vancomycin. You have 10 more days of antibiotics remaining. Start the vancomycin antibiotic as soon as you arrive home. Take the vancomycin four (4) times a day until the bottle is done. Please DISCONTINUE the metronidazole (flagyl) antibiotic that you were previously taking for the c diff. 2. C diff is contagious. Please do the following at home to prevent transmission of this infection to your spouse and other people - * wash your hands frequently with soap and water - minimum 30 minutes each time * Purell liquid alcohol hand wiring inspector does NOT kill c. diff * wash all toilets, door handles, sinks, countertops, etc with BLEACH containing products (chlorox wipes, etc) * wash all linens (sheets, towels, etc) and underwear in hot water cycle with bleach, if possible * USE A DIFFERENT TOILET FROM YOUR SPOUSE FOR THE NEXT 2 WEEKS, IF POSSIBLE * the period of highest contagiousness is when you have active diarrhea; however , you can still pass on the infection even after your stools go back to normal * limit visitors to your home over the next 1-2 weeks 3. Take cholestyramine powder 1 serving twice a day in liquid for the next 10 days. This helps keep the stools formed. If you notice you are getting constipated on this product simply cut it back to once a day or stop it. 4. Take a probiotic supplement for the next 2 weeks. 5. Urinary tract infection - please take cipro 500mg twice a day for the next 5 days. Take your first dose TONIGHT. 6. STOP YOUR LISINOPRIL. 7. Risk of aspiration - * do not use straws * slow down when you are eating/drinking; take small sips of liquid at a time and small bites * stay upright for all meals and for 20-30 minutes after meals; do not lay down immediately after a meal * FOLLOW A MOIST DIET - THAT IS, AVOID FOODS THAT ARE DRY (bread, pasta, cereal , raw veggies, etc) * use plenty of gravies on food to help promote the passage of food down your esophagus 8. Ideally you would benefit from home nursing and home PT/OT but at this time you are declining these services. 9. use your special shoes and walker at home at all times. 10. Follow-up with Dr. Monahan THIS WEEK (within 3-4 days, if possible). 11. Return to [facility] if - * you have fever over 100.5 degrees * you have worsening diarrhea despite taking your antibiotics (vancomycin) * you are short of breath, having chest pain, or having abdominal pain * any other concerns Current Hospital Diet Patient's current hospital diet: Low Fiber Diet Discharge Diet Recommended Diet: Low Fiber Diet Diet Texture: Mechanical Soft (ground) (MOIST foods) Procedures Procedures Performed: speech therapy swallow evaluation at the bedside Pending Studies Studies pending at discharge: no Medical Emergencies . Who to Call and When: Medical Emergencies: If at any time you feel your situation is an emergency, please call 911 immediately. . Non-Emergent Contact Non-Emergency issues call your: Primary Care Provider Call Non-Emergent contact if: temperature is above 100.5, your pain is not controlled, your pain is worsening, your pain is unusual for you, your pain is concerning you, you have any medication questions . . "Provider Documentation" section prepared by Scotty Chou. .
--- NOTE | 2018-03-31 23:56 | Discharge Summary ---
Discharge Summary Date of Service Mar 31, 2018. Discharge Summary Admission Date: Mar 28, 2018 at 12:14 Discharge Date: Mar 31, 2018 Discharge Disposition: Home Principal Diagnosis: c diff colitis Problems/Secondary Diagnoses: 1) HTN 2) Hyperlipidemia 3) Chronic pain syndrome - dependent on high-dose narcotics 4) Benzodiazepine dependence 5) BPH 6) CKD III 7) hyponatremia - acute on chronic 8) Chronic anemia - Hb 11-12 9) History of alcohol abuse 10) Osteoarthritis 11) acute kidney injury - resolved 12) hypomagnesemia - resolved 13) frequent falls 14) chronic diarrhea 15) depression 16) ambulatory dysfunction 17) b/l foot drop 18) neuropathy of legs 19) cognitive impairment/dementia with possible superimposed metabolic encephalopathy - latter resolved 20) dysphagia Immunizations: Have You Had Influenza Vaccine: Yes History of Tetanus Vaccine?: UNK History of Pneumococcal: No History of Hepatitis B Vaccine: No Consultations: PT, OT, speech Medication Reconciliation New Medications: Ciprofloxacin Hcl (Cipro) 500 Mg Tab 500 MG PO BID for 5 Days, #10 TAB 0 Refills Saccharomyces Boulardii (Florastor) 250 Mg Cap 250 MG PO DAILY for 14 Days, #14 CAP 0 Refills Vancomycin Hcl (Vancomycin) 125 Mg Cap 125 MG PO QID for 10 Days, #40 CAP 0 Refills Changed Medications: Cholestyramine (Bulk) (Cholestyramine) 1 Pow Pow 4 GM PO BID for 10 Days, #20 PKT 0 Refills (Changed from: DAILY; Refills: ) Continued Medications: Aspirin (Aspirin) 325 Mg Tab 325 MG PO DAILY Chlordiazepoxide (Librium) 25 Mg Cap 25 MG PO QID, CAP Chlordiazepoxide (Librium) 25 Mg Cap 25 MG PO NEEDED, CAP Cholecalciferol (Vitamin D3) 1,000 Unit Tab 100 UNITS PO DAILY, TAB 3 Refills Diphenhydramine-Acetaminophen (Tylenol Pm) 1 Tab Tab 1 TAB PO HS Fentanyl (Duragesic) 50 Mcg Tdsy 50 MCG TD [id number] Finasteride (Proscar) 5 Mg Tab 5 MG PO DAILY, TAB Metoprolol Succ (Toprol Xl) (Toprol-Xl) 25 Mg Tabcr 25 MG PO DAILY, #30 TAB Multivitamin (Multivitamin) Tab 1 TAB PO DAILY, 0 Refills Nystatin (Nystatin) 5 Ml Susp 5 ML PO QID Ondasetron Odt (Zofran Odt) 4 Mg Tab 4 MG SL Q6H for Nausea, #6 TAB Oxycodone Hcl (Oxycodone Hcl) 10 Mg Tab 10 MG PO Q4 PRN for Pain, #P Ranitidine (Zantac) 150 Mg Tab 300 MG PO DAILY Simvastatin (Zocor) 40 Mg Tab 40 MG PO QPM, 0 Refills Tamsulosin Hcl (Flomax) 0.4 Mg Cap 0.4 MG PO DAILY, CAP Discontinued Medications: Lisinopril (Zestril) 40 Mg Tab 40 MG PO DAILY, TAB Loperamide Hcl (Imodium) 2 Mg Cap 2 MG PO Q6, CAP Discharge Exam Physical Exam: General Appearance: no apparent distress ENT: pharynx normal Neck: no JVD Respiratory/Chest: lungs clear, no respiratory distress, no accessory muscle use Cardiovascular: regular rate, rhythm, no gallop, no murmur, normal peripheral pulses Abdomen / GI: normal bowel sounds, non tender, soft, no organomegaly, + pertinent finding (BERTA - prostate enlarged but not boggy and not tender ) Extremities: no pedal edema Neurologic/Psychiatric: alert, + motor weakness (b/l foot drop) Hospital Course HISTORY OF PRESENT ILLNESS: 77 y/o M Hx HTN, Hyperlipidemia, BPH, chronic anemia, chronic hyponatremia, CKD III. The pt had visited the ER 2 days prior due to nausea/vomiting and diarrhea. He was diagnosed with C diff and subsequently D/Cd with Flagyl. His diarrhea apparently worsened and he was not able to tolerate adequate PO intake. He presented to his PCP. Labs were repeated and he was notably hyponatremic. His renal function was impaired compared to baseline and his anemia had worsened. He was therefore advised to go to the hospital. HOSPITAL COURSE: The patient was treated for c diff colitis, acute/chronic hyponatremia, dehydration, hypomagnesemia, as well as an enterobacter UTI. For his c. diff he was switched to vancomycin from flagyl and within 48 hours his diarrhea was significantly improved. With IV hydration his sodium normalized (initial was 126 improving to 134 at discharge) and his creatinine returned to baseline (initial creatinine was 2.3, improving to 1.4 on day of discharge). The patient was advised to complete 10 more days of oral vancomycin after discharge. He was prescribed cholestyramine and probiotics for symptomatic relief of his diarrhea. Mr. Krishnamurthy was seen in consult by PT/OT and, although they recommended home therapy services, he adamantly refused to have such. He was also seen by speech therapy due to dysphagia for taking pills and occasional episodes of apparent aspiration. The patient's reported seeing dysphagia/aspiration at home as well. Speech recommended a MOIST, slippery diet at home. The patient will complete 5 more days of oral cipro for his enterobacter UTI. He had no evidence of complicating prostatitis on physical exam. The patient's mentioned that even before the c. diff colitis the patient had been having chronic diarrhea for quite some time (months, perhaps even years ). CT abd/pelvis on 03/26/18 showed small bowel wall thickening and other findings that could be due to a chronic GI process. Thus, I recommended he have outpatient GI consultation to determine if needs additional testing for a chronic, underlying GI condition. The patient was counseled numerous times on his high risk of falls due to foot drop, neuropathy, etc. The patient refused to listen to most recommendations from the medical team and physical therapy. Fortunately he does have 24-hour supervision by his at their home. Finally, due to CKD and high-normal potassium levels, I recommended discontinuation of his BRIDGET inhibitor. Total Time Spent: Greater than 30 minutes This includes examination of the patient, discharge planning, medication reconciliation, and communication with other providers. Discharge Instructions Please refer to the electronic Patient Visit Report (Discharge Instructions) for additional information. Follow-Up see Dr. Monahan within 1 week Additional Copies To Rj Monahan M.D.
== END 2018-03-31 14:44 | disposition home or self-care (01) | DRG 371 ==
LOC: C.EDB 09:42 → C.MS2W 12:14 → ENRESERV 12:48
PROVIDERS: ADMIT Internal Medicine; ATTEND Internal Medicine
DX: A04.72 Enterocolitis due to Clostridium difficile, not specified as recurrent (principal); G93.41 Metabolic encephalopathy; N17.9 Acute kidney failure, unspecified; E87.1 Hypo-osmolality and hyponatremia; F17.210 Nicotine dependence, cigarettes, uncomplicated; N39.0 Urinary tract infection, site not specified; E87.6 Hypokalemia; E78.5 Hyperlipidemia, unspecified; G89.4 Chronic pain syndrome; N18.3 Chronic kidney disease, stage 3 (moderate); D64.9 Anemia, unspecified; F32.9 Major depressive disorder, single episode, unspecified; B96.89 Other specified bacterial agents as the cause of diseases classified elsewhere; Z96.649 Presence of unspecified artificial hip joint; F10.10 Alcohol abuse, uncomplicated; M19.90 Unspecified osteoarthritis, unspecified site; Z79.891 Long term (current) use of opiate analgesic; E83.42 Hypomagnesemia; F03.90 Unspecified dementia, unspecified severity, without behavioral disturbance, psychotic disturbance, mood disturbance, and anxiety

== ENCOUNTER 2024-06-19 12:09 | Inpatient (IN) ==
[2024-06-19 13:07] LABS: Basophils # (auto) 0.07 K/uL (0.00-0.20); Basophils % (auto) 0.6 %; Eosinophils # (auto) 0.36 K/uL (0.00-0.50); Eosinophils % (auto) 3.2 %; Hematocrit (blood only) 31.9 % (42.0-52.0); Hemoglobin 10.6 g/dl (14.0-18.0); Immature Granulocytes # (auto) 0.03 K/uL (0.01-0.20); Immature Granulocytes % (auto) 0.3 %; Lymphocytes # (auto) 2.32 K/uL (1.20-3.40); Lymphocytes % (auto) 20.8 %; Mean Corpuscular Hemoglobin 28.8 pg (25.0-34.0); Mean Corpuscular Hgb Conc 33.2 g/dL (32.0-36.0); Mean Corpuscular Volume 86.7 fL (80.0-100.0); Mean Platelet Volume 9.8 fL (9.4-12.4); Monocytes # (auto) 0.79 K/uL (0.11-0.59); Monocytes % (auto) 7.1 %; Neutrophils # (auto) 7.59 K/uL (1.40-6.50); Platelet Count 377 K/uL (130-400); RDW Coefficient of Variation 13.2 % (11.5-14.5); RDW Standard Deviation 42.3 fL (36.4-46.3); Red Blood Count 3.68 M/uL (4.70-6.10); White Blood Count 11.16 K/ul (4.8-10.8)
--- NOTE | 2024-06-19 13:25 | XRay Report ---
XR chest 1V not portable HISTORY: 83 years-old Male Weakness COMPARISON: 05/30/2024 TECHNIQUE: AP view of the chest FINDINGS: Cardiomediastinal and hilar silhouettes are unchanged. No pneumothorax, pleural effusion, airspace co nsolidation or pulmonary edema. Bones appear grossly intact. IMPRESSION: No acute process. ACT 112: Negative or not required by law. The above report was generated using voice recognition software. It may contain grammatical, syntax o r spelling errors. Electronically signed by: Steffen Gilmore M.D. 06/19/2024 1:23 PM
[2024-06-19 13:36] LABS: Albumin Globulin Ratio 1.2 (0.9-2); Albumin Level 3.7 gm/dl (3.4-5.0); BUN Creatinine Ratio 26.6 (10-20); Bilirubin,Total 0.2 mg/dl (0.2-1.0); Creatinine Clr Calc Pharmacy 20.1 ml/min; Globulin 3.1 gm/dl (2.5-4.0); Magnesium 1.5 mg/dl (1.7-2.4); Partial Thromboplastin Ratio 1.1; Partial Thromboplastin Time 29 Seconds (21-31); Potassium 4.5 mmol/L (3.5-5.1); Prothrombin Time 10.8 Seconds (9.0-12.0); Total Protein 6.8 gm/dl (6.0-8.3)
[2024-06-19 13:41] LABS: Troponin I High Sensitivity 15.5 pg/ml (0-20)
[2024-06-19 13:50] LABS: Thyroid Stimulating Hormone 1.521 uIu/ml (0.300-4.500)
--- NOTE | 2024-06-19 13:59 | Emergency Department Note ---
Impression & Plan Acute confusion, Weakness, Leukocytosis, Hypomagnesemia, Vomiting, Acute UTI ED Provider Note NAME: JULIO DURANT AGE: 83 SEX: M : 1940 ARRIVES VIA: Walk-In INFORMANT: [Patient][family] ED PROVIDER(S): [Jered Gómez MD] CHIEF COMPLAINT: DrNatividad Referred HISTORY OF PRESENT ILLNESS: The patient is an 83-year-old male with increasing confusion for the last few weeks. He also has had some increased vomiting, he vomits almost every time he eats. There has been no fever, no cough or congestion. The patient slept all day yesterday which was unusual. As per his family, he had some outpatient testing done and there was concern for some renal failure as well as UTI, he was referred to the hospital. Of note, he did fall several weeks ago, the family wonders if he struck his head. PMHx/PSHx/Social Hx: See Below PHYSICAL EXAM: GENERAL: Patient is in no acute distress. HEENT: No acute trauma, normocephalic atraumatic, mucous membranes dry, no nasal congestion. NECK: No stridor, no adenopathy, no meningismus, trachea is midline. LUNGS: Clear to auscultation bilaterally, no wheeze, no rhonchi, breath sounds equal. HEART: Without murmurs gallops or rubs, regular rate and rhythm. ABDOMEN: Soft, nontender, no peritonitis. EXTREMITIES: No cyanosis, full range of motion of all the joints without pain or difficulty. Mild bilateral pedal edema. NEUROLOGIC: Awake and alert, no speech slur, no acute motor or sensory deficits, no focal weakness. SKIN: No jaundice, no diaphoresis. DIFFERENTIAL DIAGNOSIS: UTI, dehydration, renal failure, electrolyte imbalance, intracranial bleeding, among others. EMERGENCY DEPARTMENT PROCEDURES: MEDICAL DECISION MAKING: There is a mild leukocytosis, this would be consistent with infection. The patient was anemic however, this is a chronic finding looking back at previous testing. There was a normal platelet count. No coagulopathy. Sodium slightly low at 130, creatinine high at 2.8. Patient's creatinine today is a bit higher than his baseline. Magnesium is low at 1.5. No concerning liver enzyme elevation. The patient appeared to be in a euthyroid state. ECG shows a normal sinus rhythm, no ischemia or dysrhythmia. Cardiac enzyme testing x 1 is not consistent with acute cardiac injury. Urinalysis does show findings of infection. Brain CT showed atrophy, no acute bleed or mass effect. Chest x-ray did not show pneumonia or CHF. On exam, patient was not toxic or febrile. The patient was given IV magnesium, IV saline and IV ceftriaxone. The patient presents with increasing weakness, confusion, increased sleepiness. He appears to have a UTI with some mild acute kidney injury. I do think hospitalization is indicated. I spoke with the patient and case management. The on-call hospitalist was consulted. Prior/Outside records/notes reviewed: None ECG per my interpretation: Indication was confusion. The ECG shows a normal sinus rhythm with a rate of 67. There is no acute ST elevation, no PVCs. The QTc is 422. Continuous Cardiac Monitoring per my interpretation: An order was placed for continuous cardiac monitoring. The monitor shows a rate of 65 with normal sinus rhythm. Imaging/x-ray results per my interpretation: Chest x-ray does not show CHF, pneumonia or pneumothorax. Chronic Medical/Social conditions affecting care: Advanced age. Care/Management discussed with: Case management, the on-call hospitalist. Level of care consideration(s): After review of the information above and other included data: --I believe the patient requires escalation of care to admission DISPOSITION: Admission Past Med/Surg History Problem List (Updated 06/19/24 @ 15:49 by Jered Gómez MD) Acute UTI (Acute) Vomiting (Acute) Hypomagnesemia (Acute) Leukocytosis (Acute) Weakness (Acute) Acute confusion (Acute) Lumbago (Chronic) Myofascial pain (Acute) Alcohol abuse (Chronic) Vocal cord leukoplakia (Chronic) Tobacco use (Chronic) Chronic renal disease, stage III (Chronic) Recurrent falls (Chronic) Opioid dependence (Chronic) Hypertension (Chronic) GERD (gastroesophageal reflux disease) (Chronic) Dyslipidemia (Chronic) Dementia (Chronic) Arteriosclerosis of carotid artery (Chronic) Anxiety (Chronic) Anemia (Chronic) Clostridium difficile enterocolitis (Acute) Chronic pain syndrome (Chronic 12/15/11) Closed head injury (Chronic) Medical History (Updated 06/19/24 @ 15:49 by Jered Gómez MD) Neck sprain Concussion syndrome Social History Smoking Status: Current every day smoker Tobacco Type: Cigarettes Hx Alcohol Use: Yes Alcohol type: hard liquor Preferred Language: Serbian Visual Impairment: Limited Hearing Ability: Hard of Hearing marital status: Current Living Situation: Family Feels Safe at Home: Yes Allergies Allergies Allergy/AdvReac Type Severity Reaction Status Date / Time No Known Allergies Allergy Verified 12/20/18 09:46 Home Meds Home Medications Medication Instructions Recorded Confirmed aspirin 325 mg tablet 325 mg PO DAILY 11/15/18 12/20/18 chlordiazepoxide HCl 25 mg capsule 25 mg PO TID 11/15/18 12/20/18 cholecalciferol (vitamin D3) 25 1,000 units PO DAILY 11/15/18 12/20/18 mcg (1,000 unit) capsule cholestyramine-aspartame 4 gram 4 gm PO DAILY 11/15/18 12/20/18 oral powder (Cholestyramine Light) clotrimazole 10 mg shanon 10 mg mucous membrane DAILY 11/15/18 12/20/18 diphenhydramine 25 1 tab PO HS PRN 11/15/18 12/20/18 mg-acetaminophen 500 mg tablet (Tylenol PM Extra Strength) finasteride 5 mg tablet 5 mg PO DAILY 11/15/18 12/20/18 ibuprofen 200 mg tablet 200 mg PO QID PRN 11/15/18 12/20/18 loperamide 2 mg tablet (Imodium 2 mg PO Q6H 11/15/18 12/20/18 A-D) metoprolol tartrate 25 mg tablet 25 mg PO DAILY 11/15/18 12/20/18 multivitamin 1 cap PO DAILY 11/15/18 12/20/18 nystatin 100,000 unit/mL oral 5 ml buccal QID 11/15/18 12/20/18 suspension oxycodone 10 mg tablet 10 mg PO TID 11/15/18 12/20/18 simvastatin 40 mg tablet 40 mg PO QPM 11/15/18 12/20/18 tamsulosin 0.4 mg capsule 0.4 mg PO DAILY 11/15/18 12/20/18 fentanyl 37.5 mcg/hour transdermal 1 patch transdermal Q72H 12/20/18 12/20/18 patch fentanyl 50 mcg/hr transdermal 1 patch transdermal DIRECTED 06/19/24 patch Results & Data (ED) Vital Signs Vital Signs - 24 hr 06/19/24 12:25 06/19/24 13:47 06/19/24 13:49 Temperature 36.6 C Temperature Source Temporal Artery Scan Pulse Rate 69 Pulse Rate [Apical] 65 Pulse Rate from SpO2 Sensor Pulse Rhythm Regular Pulse Strength Normal Respiratory Rate 16 19 Respiratory Effort / Characteristics Non-Labored Spontaneous Non-Labored Spontaneous Respiratory Depth Normal Normal Respiratory Pattern Regular Blood Pressure 107/58 L Blood Pressure [Right Arm] 122/72 Blood Pressure Mean 74 Blood Pressure Mean [Right Arm] 88 Blood Pressure Position Sitting Pulse Oximetry 98 99 98 Oxygen Delivery Method Room Air Room Air Room Air Oxygen Flow Rate 0 Sepsis Recent Fever Within 48 Hours No Sepsis New/Unexplained Change in Mental Status No Sepsis Action Taken by Nursing No Action Required 06/19/24 14:08 06/19/24 14:09 06/19/24 14:36 Temperature Temperature Source Pulse Rate 91 H 68 71 Pulse Rate [Apical] Pulse Rate from SpO2 Sensor 67 72 Pulse Rhythm Pulse Strength Respiratory Rate 16 26 H Respiratory Effort / Characteristics Respiratory Depth Respiratory Pattern Blood Pressure 108/54 L Blood Pressure [Right Arm] Blood Pressure Mean 72 Blood Pressure Mean [Right Arm] Blood Pressure Position Pulse Oximetry 100 99 Oxygen Delivery Method Oxygen Flow Rate Sepsis Recent Fever Within 48 Hours Sepsis New/Unexplained Change in Mental Status Sepsis Action Taken by Group Home Medications Current Medication List: was personally reviewed by me Laboratory Data Attestation: I reviewed the patient's lab results. 06/19/24 12:45 06/19/24 12:45 Lab Results 06/19/24 06/19/24 Range/Units 12:45 14:45 WBC 11.16 H (4.8-10.8) K/ul RBC 3.68 L (4.70-6.10) M/uL Hgb 10.6 L (14.0-18.0) g/dl Hct 31.9 L (42.0-52.0) % MCV 86.7 (80.0-100.0) fL MCH 28.8 (25.0-34.0) pg MCHC 33.2 (32.0-36.0) g/dL RDW Std Deviation 42.3 (36.4-46.3) fL RDW Coeff of [place] 13.2 (11.5-14.5) % Plt Count 377 (130-400) K/uL MPV 9.8 (9.4-12.4) fL Immature Gran % (Auto) 0.3 % Neut % (Auto) 68.0 % Lymph % (Auto) 20.8 % Luce % (Auto) 7.1 % Eos % (Auto) 3.2 % Baso % (Auto) 0.6 % Neut # (Auto) 7.59 H (1.40-6.50) K/uL Lymph # (Auto) 2.32 (1.20-3.40) K/uL Luce # (Auto) 0.79 H (0.11-0.59) K/uL Eos # (Auto) 0.36 (0.00-0.50) K/uL Baso # (Auto) 0.07 (0.00-0.20) K/uL Immature Gran # (Auto) 0.03 (0.01-0.20) K/uL PT 10.8 (9.0-12.0) Seconds INR 1.0 (0.9-1.1) APTT 29 (21-31) Seconds PTT Ratio 1.1 Sodium 130 L (136-145) mmol/L Potassium 4.5 (3.5-5.1) mmol/L Chloride 98 (98-107) mmol/L Carbon Dioxide 22 (21-32) mmol/L Anion Gap 10 (3-11) BUN 75 H (6-23) mg/dl Creatinine 2.82 H (0.6-1.4) mg/dl Est Cr Clr Drug Dosing 20.1 ml/min eGFR 21.39 BUN/Creatinine Ratio 26.6 H (10-20) Glucose 148 H (70-99(Fasting)) mg/dl Calcium 9.0 (8.6-10.3) mg/dl Magnesium 1.5 L (1.7-2.4) mg/dl Total Bilirubin 0.2 (0.2-1.0) mg/dl AST 15 (13-39) U/L ALT 11 (7-52) U/L Alkaline Phosphatase 63 (34-104) U/L Troponin I High Sens 15.5 (0-20) pg/ml Total Protein 6.8 (6.0-8.3) gm/dl Albumin 3.7 (3.4-5.0) gm/dl Globulin 3.1 (2.5-4.0) gm/dl Albumin/Globulin Ratio 1.2 (0.9-2) TSH 1.521 (0.300-4.500) uIu/ml Urine Color Yellow Urine Appearance Clear (Clear) Urine pH 5.5 (4.5-7.5) Ur Specific [place] 1.013 (1.000-1.030) Urine Protein 1+ H (Negative) Urine Glucose (UA) Negative (Negative) Urine Ketones Negative (Negative) Urine Blood Negative (Negative) Urine Nitrite Positive A (Negative) Urine Bilirubin Negative (Negative) Urine Urobilinogen Negative (Negative) Ur Leukocyte Esterase 2+ H (Negative) Urine WBC (Auto) 21-50 H (0-5) /hpf Urine RBC (Auto) 0-2 (0-2) /hpf U Hyaline Cast (Auto) 3-5 H (0-2) /lpf U Epithel Cells (Auto) 3-5 H (0-2) /hpf Urine Bacteria (Auto) 4+ H (None Seen) Administered Medications Ceftriaxone Sodium (Rocephin) 2,000 mg in 50 mls @ 100 mls/hr IV NOW STA Stop: 06/19/24 15:59 Last Admin: 06/19/24 15:43 Dose: 100 mls/hr Documented By: SHANNAN Discontinued Medications Magnesium Sulfate/Dextrose (Magnesium Sulfate / D5w) 1 gm in 100 mls @ 100 mls/hr IV NOW STA Stop: 06/19/24 14:39 Last Infusion: 06/19/24 15:35 Dose: Infused Documented By: Admin: 06/19/24 14:33 Dose: 100 mls/hr Documented By: SHANNAN Sodium Chloride (Nss) 500 mls @ 999 mls/hr IV .Q31M ONE Stop: 06/19/24 14:10 Last Infusion: 06/19/24 15:32 Dose: Infused Documented By: Admin: 06/19/24 14:08 Dose: 999 mls/hr Documented By: SHANNAN Imaging Data Radiologist's Impression: Chest X-Ray 06/19/24 12:30 XR chest 1V not portable HISTORY: 83 years-old Male Weakness COMPARISON: 05/30/2024 TECHNIQUE: AP view of the chest FINDINGS: Cardiomediastinal and hilar silhouettes are unchanged. No pneumothorax, pleural effusion, airspace consolidation or pulmonary edema. Bones appear grossly intact. IMPRESSION: No acute process. ACT 112: Negative or not required by law. The above report was generated using voice recognition software. It may contain grammatical, syntax or spelling errors. Electronically signed by: Steffen Gilmore M.D. 06/19/2024 1:[address] 06/19/24 13:55 CT OF THE HEAD WITHOUT CONTRAST CLINICAL HISTORY: fall, confusion COMPARISON STUDY: Head CT May 30, 2024 CT DOSE: 625.8 mGy.cm TECHNIQUE: Helical axial images of the head were obtained without IV contrast. Automated exposure control was utilized for the study. A dose lowering technique was utilized adhering to the principles of ALARA. FINDINGS: No acute intracranial hemorrhage, midline shift or mass effect is present. The ventricular system is stable. White matter hypodensities are unchanged and favor small vessel disease. There is moderate atrophy. 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 The basal cisterns are patent. No extra-axial collections are present. There are no findings to suggest acute dural sinus thrombosis or acute territorial infarct. No significant calvarial abnormalities are present. Visualized portions of the sinuses and mastoid air cells are clear. IMPRESSION: 1. No acute intracranial findings. No change in appearance of the brain. 2. No calvarial fractures. ACT 112: Negative or not required by law. Electronically signed by: Mario Jean M.D. 06/19/2024 2:30 PM Discharge Plan Visit Data Chief Complaint: Referred by Doctor Stated Complaint: KIDNEY DISEASE, INFECTION IN KIDNEY ED Provider: Jered Gómez Discharge Problem: Acute confusion, Weakness, Leukocytosis, Hypomagnesemia, Vomiting, Acute UTI Patient Disposition: Home - Self-Care Condition: Fair Forms Stand Alone Forms: My [facility], Important Visit Information Prescriptions Prescriptions: No Action diphenhydramine-acetaminophen [Tylenol PM Extra Strength] 25-500 mg tablet 1 tab PO HS PRN aspirin 325 mg tablet 325 mg PO DAILY chlordiazepoxide HCl 25 mg capsule 25 mg PO TID cholecalciferol (vitamin D3) 1,000 unit capsule 1,000 units PO DAILY Cholestyramine Light 4 gram powder 4 gm PO DAILY clotrimazole 10 mg shanon 10 mg mucous membrane DAILY finasteride 5 mg tablet 5 mg PO DAILY ibuprofen 200 mg tablet 200 mg PO QID PRN loperamide [Imodium A-D] 2 mg tablet 2 mg PO Q6H metoprolol tartrate 25 mg tablet 25 mg PO DAILY multivitamin capsule 1 cap PO DAILY nystatin 100,000 unit/mL suspension 5 ml BUCCAL QID oxycodone 10 mg tablet 10 mg PO TID simvastatin 40 mg tablet 40 mg PO QPM tamsulosin 0.4 mg capsule 0.4 mg PO DAILY fentanyl 37.5 mcg/hour patch 72 hour 1 patch TD Q72H fentanyl 50 mcg/hr patch 72 hour 1 patch transdermal DIRECTED Referrals Referrals: Garcia Ramirez MD [Primary Care Provider] - Discharge Problem: Leukocytosis Qualifiers: Leukocytosis type: unspecified Qualified Code(s): D72.829 - Elevated white blood cell count, unspecified Vomiting Qualifiers: Vomiting type: unspecified Nausea presence: with nausea Qualified Code(s): R 11.2 - Nausea with vomiting, unspecified
[2024-06-19] MEDS: SODIUM CHLORIDE 0.9% 500 ML IV ONE (14:08)
[2024-06-19] MEDS: MAGNESIUM SULFATE / D5W 1 GM/100 ML BAG IV STA (14:33)
--- NOTE | 2024-06-19 14:33 | CT Scan Report ---
CT OF THE HEAD WITHOUT CONTRAST CLINICAL HISTORY: fall, confusion COMPARISON STUDY: Head CT May 30, 2024 CT DOSE: 625.8 mGy.cm TECHNIQUE: Helical axial images of the head were obtained without IV contrast. Automated exposure con trol was utilized for the study. A dose lowering technique was utilized adhering to the principles o f ALARA. FINDINGS: No acute intracranial hemorrhage, midline shift or mass effect is present. The ventricular system is stable. White matter hypodensities are unchanged and favor small vessel disease. There is m oderate atrophy. 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 The basal cisterns are patent . No extra-axial collections are present. There are no findings to suggest acute dural sinus thrombos is or acute territorial infarct. No significant calvarial abnormalities are present. Visualized porti ons of the sinuses and mastoid air cells are clear. IMPRESSION: 1. No acute intracranial findings. No change in appearance of the brain. 2. No calvarial fractures. ACT 112: Negative or not required by law. Electronically signed by: Mario Jean M.D. 06/19/2024 2:30 PM
[2024-06-19 15:18] LABS: Appearance Urine Clear (Clear); Bacteria Urine Automated 4+ (None Seen); Bilirubin Urine Negative (Negative); Blood Urine Negative (Negative); Color Urine Yellow; Glucose Urine UA Negative (Negative); Ketones Urine Negative (Negative); Leukocyte Esterase Urine 2+ (Negative); Nitrite Urine Positive (Negative); Protein Urine 1+ (Negative); RBC Urine Automated 0-2 /hpf (0-2); Specific Gravity Urine 1.013 (1.000-1.030); Urobilinogen Urine Negative (Negative); WBC Urine Automated 21-50 /hpf (0-5); pH Urine 5.5 (4.5-7.5)
--- NOTE | 2024-06-19 15:27 | Electrocardiogram Report ---
Test Reason : Blood Pressure : */* mmHG Vent. Rate : 67 BPM Atrial Rate : 67 BPM P-R Int : 150 ms QRS Dur : 82 ms QT Int : 400 ms P-R-T Axes : 69 34 65 degrees QTcB Int : 422 ms Normal sinus rhythm Normal ECG When compared with ECG of 30-May-2024 11:03, Premature supraventricular complexes are no longer Present Confirmed by Henri Saucedo ([id number]) on 06/19/2024 3:27:30 PM Referred By: REFERRED SELF Confirmed By: Henri Saucedo
[2024-06-19] MEDS: cefTRIAXone SODIUM 2,000 MG/50 ML BAG IV STA (15:43)
--- NOTE | 2024-06-19 15:50 | History & Physical Report ---
Date of Service June 19, 2024 Assessment & Plan (1) Acute UTI: Plan: Symptoms of change in mental status, per family. On 06/17, patient was found to have worsening of renal function as well as UTI. - No prior h/o UTI; no history of Pseudomonas - UA show 1+ protein, positive nitrite, 2+ LE, WBC, hyaline casts, epithelial cells, 4+ bacteria - Pending urine culture - CBC- WBC 11.16; pending lactate - Ceftriaxone 1 g IV daily (first dose 06/19) - Zofran 4mg IV every 6 hours as needed N/V - No CVA tenderness- no renal ultrasound at this time - CBC a.m. (2) Chronic renal disease, stage III: Plan: Cr baseline (1.9-2.2) - UA 1+ protein, positive nitrite, 2+ LE, WBC, hyaline casts, epithelial cells, 4+ bacteria - Given 500 mL fluids in the ED; encourage po fluids - BMP a.m. (3) Hypomagnesemia: Plan: Mg 1.5 on admission - Mag sulfate 1 g given in ED - Mg am (4) Hyponatremia: Plan: Na on admission 130; corrected 131 - Poor oral intake recently - Encourage po fluids - BMP in AM (5) Hypertension: Plan: Ongoing; first documented in 2019 - Metoprolol tartrate 25 mg daily at home - Hypotensive on arrival - Continue to monitor (6) Anemia: Plan: Baseline H&H 9-06/12-35 - H&H on admission 10.6/31.9 - Denies overt signs of bleeding - CBC a.m. (7) Dementia: Plan: Ongoing, at baseline per family - Patient states he walks with a walker, however states that he is unable to walk with a walker by himself - Fall precautions - PT/OT will be needed; patient lives at home with Plan HLD- simvastatin 40 mg every night Chronic pain- Fentanyl patch 50 mcg/hr every 72 hours, oxycodone 10 mg p.o. 3 times daily H/o alcohol abuse- Chlordiazepoxide HCl 25 mg p.o. 3 times daily Dispo: Admit VTE prophylaxis: SCDs Code: Conditional- No cardiac intervention; OK for airway management Admission and Anticipated Discharge Date Admission Date: 06/19/2024 History of Present Illness Chief Complaint: Abnormal labs, UTI Primary Care Provider: Garcia Ramirez MD Patient is 83-year-old gentleman presenting from outpatient appointment for abnormal labs suggestive of acute renal failure and urinary tract infection. Patient confused per family. ED course: CBC- WBC 11.16, RBC 3.68, H&H 10.6/31.9; PT/INR WNL; CMP- Na 130 (corrected 131), creatinine 2.82, BUN 75, ratio 26.6; magnesium 1.5; TSH 1.521; UA with 1+ protein, positive nitrite, 2+ LE, 21-50 WBC, 3-5 hyaline cast, 4+ bacteria; CXR no acute process; head CT moderate atrophy, no acute intracranial findings, no change in clearance of the brain, no calvarial fractures.; EKG NSR rate 67 bpm. Patient is an 83-year-old gentleman with PMHx CKD stage III, hypertension, GERD, dementia, dyslipidemia, anxiety, anemia presenting from referral from outpatient appointment on 06/17 for concerning labs suggestive of acute renal failure and urinary tract infection. Patient states that he has no symptoms, and he is only presenting because his lab results were abnormal. is present at the time of visit and helps provide history. States that patient had fallen proximally 2 to 3 weeks ago, and was evaluated in the ED. Since then his confusion has seemed to worsen on top of his baseline dementia and he has started to have nausea and episodes of emesis every time that he eats. She states that the patient has been acting abnormal in the past few days; yesterday he slept all day until 2100, when the patient's woke him up because he did not eat all day. Patient is very hard of hearing, and often goes off tangents when asked with caution. Is able to get the following responses: Occasional shortness of breath, but not current; denies chest pain, palpitations, abdominal pain, hematuria, diarrhea/constipation. Patient took all a.m. medications, but missed lunchtime doses. States that he has chronic pain, and does take around the clock medications for this as well as follow-up with pain management. Denies episode like this before. Please see Dr. Preciado's attestation for adjustments/additions to treatment plan. Allergies Allergy/AdvReac Type Severity Reaction Status Date / Time No Known Allergies Allergy Verified 12/20/18 09:46 Home Medications Medication Instructions Recorded Confirmed Type aspirin 325 mg tablet 325 mg PO DAILY 11/15/18 06/19/24 History chlordiazepoxide HCl 25 mg capsule 25 mg PO TID 11/15/18 06/19/24 History cholecalciferol (vitamin D3) 25 1,000 units PO DAILY 11/15/18 06/19/24 History mcg (1,000 unit) capsule cholestyramine-aspartame 4 gram 4 gm PO DAILY 11/15/18 06/19/24 History oral powder (Cholestyramine Light) clotrimazole 10 mg shanon 10 mg mucous membrane DAILY 11/15/18 06/19/24 History diphenhydramine 25 1 tab PO HS PRN Pain, Moderate 11/15/18 06/19/24 History mg-acetaminophen 500 mg tablet (Tylenol PM Extra Strength) finasteride 5 mg tablet 5 mg PO DAILY 11/15/18 06/19/24 History ibuprofen 200 mg tablet 200 mg PO QID PRN Pain, Mild 11/15/18 06/19/24 History loperamide 2 mg tablet (Imodium 2 mg PO Q6H 11/15/18 06/19/24 History A-D) metoprolol tartrate 25 mg tablet 25 mg PO DAILY 11/15/18 06/19/24 History multivitamin 1 cap PO DAILY 11/15/18 06/19/24 History nystatin 100,000 unit/mL oral 5 ml buccal QID 11/15/18 06/19/24 History suspension oxycodone 10 mg tablet 10 mg PO TID 11/15/18 06/19/24 History simvastatin 40 mg tablet 40 mg PO QPM 11/15/18 06/19/24 History tamsulosin 0.4 mg capsule 0.4 mg PO DAILY 11/15/18 06/19/24 History fentanyl 37.5 mcg/hour transdermal 1 patch transdermal Q72H 12/20/18 06/19/24 History patch fentanyl 50 mcg/hr transdermal 1 patch transdermal DIRECTED 06/19/24 06/19/24 History patch Past Med/Surg History Problem List (Updated 06/19/24 @ 17:57 by Background Daemon) Acute UTI (Acute) Vomiting (Acute) Hypomagnesemia (Acute) Leukocytosis (Acute) Weakness (Acute) Acute confusion (Acute) Lumbago (Chronic) Myofascial pain (Acute) Alcohol abuse (Chronic) Vocal cord leukoplakia (Chronic) Tobacco use (Chronic) Chronic renal disease, stage III (Chronic) Recurrent falls (Chronic) Opioid dependence (Chronic) Hypertension (Chronic) GERD (gastroesophageal reflux disease) (Chronic) Dyslipidemia (Chronic) Dementia (Chronic) Arteriosclerosis of carotid artery (Chronic) Anxiety (Chronic) Anemia (Chronic) Clostridium difficile enterocolitis (Acute) Chronic pain syndrome (Chronic 12/15/11) Closed head injury (Chronic) Medical History (Updated 06/19/24 @ 17:57 by Charlene Hager) Neck sprain Concussion syndrome Social History Smoking Status: Current every day smoker Tobacco Type: Cigarettes Second Hand Exposure: No; Do You Dip or Chew Tobacco: No; Hx Alcohol Use: Yes Alcohol type: hard liquor Hx Substance Use: No Preferred Language: [place] Communication Ability: Effective Visual Impairment: Limited Hearing Ability: Hard of Hearing Rn Homecare Required: No Beliefs That Will Affect Care: None marital status: Current Living Situation: Spouse Feels Safe at Home: Yes Assistive Devices: Denture - Upper, Denture - Lower, Glasses and Wheelchair Review of Systems Review of Systems: All systems reviewed & are unremarkable except as noted in Subjective Physical Exam Physical Exam: General: No acute distress Skin: Warm and dry, without rashes or lesions Head: Normocephalic, atraumatic Eyes: PERRL, conjunctivae clear, sclera non-icteric ENT: External ear and ear canal without swelling; nose atraumatic Neck: Supple, no LAD; no JVD Cardio: RRR, no M/G/R, S1 and S2 normal Resp: Chest wall symmetric, normal respiratory effort; No respiratory distress, Lungs CTA in all lobes bilaterally, no wheezes, rales, or rhonchi Abdomen: Soft, symmetric, nontender; no distention; No masses or hepatosplenomegaly; No CVA tenderness bilaterally MSK: full ROM throughout; pulses palpable and equal; no edema. Neuro: Awake, alert; Sensation intact bilaterally; CN intact Psych: Tearful. and son present in room at time of visit. Results & Data Results & Data Vital Signs (Past 12 Hours) Vital Signs Temp Pulse Pulse Resp BP BP Pulse Ox 06/19/24 14:36 71 26 H 99 06/19/24 14:09 68 16 108/54 L 100 06/19/24 14:08 91 H 06/19/24 13:49 65 19 122/72 98 06/19/24 13:47 99 06/19/24 12:25 36.6 C 69 16 107/58 L 98 O2 Del Method O2 Flow Rate 06/19/24 14:36 06/19/24 14:09 06/19/24 14:08 06/19/24 13:49 Room Air 06/19/24 13:47 Room Air 0 06/19/24 12:25 Room Air Laboratory Results 06/19/24 14:45 Urine Culture - Pending Urine,Clean Catch 06/19/24 06/19/24 14:45 12:45 WBC 11.16 H RBC 3.68 L Hgb 10.6 L Hct 31.9 L MCV 86.7 MCH 28.8 MCHC 33.2 RDW Std Deviation 42.3 RDW Coeff of [place] 13.2 Plt Count 377 MPV 9.8 Immature Gran % (Auto) 0.3 Neut % (Auto) 68.0 Lymph % (Auto) 20.8 [place] % (Auto) 7.1 Eos % (Auto) 3.2 Baso % (Auto) 0.6 Neut # (Auto) 7.59 H Lymph # (Auto) 2.32 [place] # (Auto) 0.79 H Eos # (Auto) 0.36 Baso # (Auto) 0.07 Immature Gran # (Auto) 0.03 PT 10.8 INR 1.0 APTT 29 PTT Ratio 1.1 Sodium 130 L Potassium 4.5 Chloride 98 Carbon Dioxide 22 Anion Gap 10 BUN 75 H Creatinine 2.82 H Est Cr Clr Drug Dosing 20.1 eGFR 21.39 BUN/Creatinine Ratio 26.6 H Glucose 148 H Calcium 9.0 Magnesium 1.5 L Total Bilirubin 0.2 AST 15 ALT 11 Alkaline Phosphatase 63 Troponin I High Sens 15.5 Total Protein 6.8 Albumin 3.7 Globulin 3.1 Albumin/Globulin Ratio 1.2 TSH 1.521 Urine Color Yellow Urine Appearance Clear Urine pH 5.5 Ur Specific Portal 1.013 Urine Protein 1+ H Urine Glucose (UA) Negative Urine Ketones Negative Urine Blood Negative Urine Nitrite Positive A Urine Bilirubin Negative Urine Urobilinogen Negative Ur Leukocyte Esterase 2+ H Urine WBC (Auto) 21-50 H Urine RBC (Auto) 0-2 U Hyaline Cast (Auto) 3-5 H U Epithel Cells (Auto) 3-5 H Urine Bacteria (Auto) 4+ H Diagnostic Findings Chest X-Ray 06/19/24 12:30 XR chest 1V not portable HISTORY: 83 years-old Male Weakness COMPARISON: 05/30/2024 TECHNIQUE: AP view of the chest FINDINGS: Cardiomediastinal and hilar silhouettes are unchanged. No pneumothorax, pleural effusion, airspace consolidation or pulmonary edema. Bones appear grossly intact. IMPRESSION: No acute process. ACT 112: Negative or not required by law. The above report was generated using voice recognition software. It may contain grammatical, syntax or spelling errors. Electronically signed by: Steffen Gilmore M.D. 06/19/2024 1:[address] 06/19/24 13:55 CT OF THE HEAD WITHOUT CONTRAST CLINICAL HISTORY: fall, confusion COMPARISON STUDY: Head CT May 30, 2024 CT DOSE: 625.8 mGy.cm TECHNIQUE: Helical axial images of the head were obtained without IV contrast. Automated exposure control was utilized for the study. A dose lowering technique was utilized adhering to the principles of ALARA. FINDINGS: No acute intracranial hemorrhage, midline shift or mass effect is present. The ventricular system is stable. White matter hypodensities are unchanged and favor small vessel disease. There is moderate atrophy. 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 The basal cisterns are patent. No extra-axial collections are present. There are no findings to suggest acute dural sinus thrombosis or acute territorial infarct. No significant calvarial abnormalities are present. Visualized portions of the sinuses and mastoid air cells are clear. IMPRESSION: 1. No acute intracranial findings. No change in appearance of the brain. 2. No calvarial fractures. ACT 112: Negative or not required by law. Electronically signed by: Mario Jean M.D. 06/19/2024 2:30 PM ECG Additional Comments: NSR, HR 67, SC 150, QRS 82, QT/QTc 400/422 Code Status & VTE Plan Code Status Conditional Supervising Physician Co-Signing Physician Notes Patient seen and examined, chart reviewed, case discussed with Teri Nickerson PA-C and I agree with the assessment and plan as above except as otherwise noted Labs and images reviewed 83-year-old male with weakness and suspected UTI. Mentation greatly improved bedside reevaluation, alertness improving. Oriented to name and hospital. Agree with continuing Rocephin, follow UCx. Mild QIANA, creatinine 2.82 on admission. Trended. Avoid nephrotoxins. P.o. fluids encouraged. Abdomen nontender. Patient is on Librium chronically, high risk given underlying dementia and confusion. Will continue home dosing however would minimize/down titrate this by around 10 %/week if tolerated. Agree with above. PG Care Time/CCT Total # of Minutes Spent Total Time Spent with Patient: Total time spent is greater than 50% in coordination of care (as documented) at patient's floor/unit and/or counseling patient: Coding Level of Care Code 96212 INT INP/OBS CARE 3/75MIN Diagnoses Acute UTI N39.0 Chronic renal disease, stage III N18.3 Hypomagnesemia E83.42 Hyponatremia E87.1 Hypertension I10 Anemia D64.9 Dementia F03.90 Time Spent (min) 85
[2024-06-19] MEDS ORDERED: ONDANSETRON INJ 2 MG/ML 2 ML VIAL IV PRN (18:08)
[2024-06-19] MEDS ORDERED: ALUMINUM/MAGNESIUM SUSP 30 ML UDC PO PRN (18:08)
[2024-06-19] MEDS: fentaNYL 50 MCG/HR TDSY TD SCH (18:46)
[2024-06-19] MEDS: SIMVASTATIN 40 MG TAB PO SCH (20:07)
[2024-06-19] MEDS: MELATONIN 3 MG TAB PO PRN (20:07)
[2024-06-19] MEDS: chlordiazePOXIDE HCl 25 MG CAP PO SCH (20:07)
[2024-06-19] MEDS: oxyCODONE HCL IR 5 MG TAB (IMMEDIATE RELEASE) PO SCH (20:07)
[2024-06-19] MEDS: INFLUENZA VACC TS2024-25(65y+)/PF (IIV3) 0.5mL Syr IM ONE (20:08)
[2024-06-19] MEDS: CHECK fentaNYL PATCH PLACEMENT SCH (23:03)
[2024-06-19] MEDS: diphenhydrAMINE 50 MG/ML VIAL IV STA (23:56)
[2024-06-19] MEDS: ACETAMINOPHEN 325 MG TAB PO PRN (23:57)
[2024-06-20] MEDS: ASPIRIN 325 MG ECTAB PO SCH (07:51)
[2024-06-20] MEDS: cefTRIAXone SODIUM 1,000 MG/50 ML BAG IV SCH (07:52)
[2024-06-20] MEDS: METOPROLOL TARTRATE 25 MG TAB PO SCH (08:08)
[2024-06-20 10:42] LABS: Hematocrit (blood only) 30.3 % (42.0-52.0); Hemoglobin 10.3 g/dl (14.0-18.0); Mean Corpuscular Hemoglobin 29.1 pg (25.0-34.0); Mean Corpuscular Volume 85.6 fL (80.0-100.0); Mean Platelet Volume 9.8 fL (9.4-12.4); Platelet Count 320 K/uL (130-400); RDW Coefficient of Variation 13.2 % (11.5-14.5); RDW Standard Deviation 41.5 fL (36.4-46.3); Red Blood Count 3.54 M/uL (4.70-6.10); White Blood Count 8.79 K/ul (4.8-10.8)
[2024-06-20 11:00] LABS: BUN Creatinine Ratio 27.6 (10-20); Calcium 8.5 mg/dl (8.6-10.3); Creatinine Clr Calc Pharmacy 22.4 ml/min; Magnesium 1.7 mg/dl (1.7-2.4); Potassium 4.2 mmol/L (3.5-5.1)
--- NOTE | 2024-06-20 17:19 | Hospitalist Progress Note ---
Date of Service June 20, 2024 Assessment & Plan (1) Acute UTI: Plan: Presented with change in mental status per family and found to have worsening renal function and UTI on outpatient labs - No prior h/o UTI; no history of Pseudomonas - Urine culture growing E. coli, sensitivities pending - Continue Ceftriaxone; downgrade once culture sensitivities result - Zofran 4mg IV every 6 hours as needed N/V Of note, patient's is his caregiver. She stated she may be approaching a point where patient requires additional support/care - PT/OT consulted - Will ask case management to discuss additional options and provide resources (2) Chronic renal disease, stage III: Plan: Baseline creatinine 1.9-2.2 - Cr on admission elevated at 2.82, given 500 mL IV fluid - Cr improved to 2.54, continue to encourage oral hydration - Avoid nephrotoxic medications and renally dose medications when appropriate (3) Hyponatremia: Plan: Chronic hyponatremia since at least 2018 - Asymptomatic hyponatremia; also in the setting of recent poor oral intake - Continue to encourage oral hydration and monitor - If remains low despite proper hydration, could consider salt tabs Hypomagnesemia on admission, repleted and augmented appropriately (4) Hypertension: Plan: Ongoing; first documented in 2019 - Continue Metoprolol tartrate 25 mg daily at home - Hypotensive on admission but pressures have now normalized (5) Anemia: Plan: Chronic anemia - Baseline hemoglobin 9-10 - Hgb at baseline without signs of active bleeding (6) Dementia: Plan: Ongoing, at baseline per family - Patient states he walks with a walker, however states that he is unable to walk with a walker by himself - Fall precautions - PT/OT evals ordered; patient lives at home with Plan Updated at bedside Ordered PT/OT evals Chronic stable problems: - HLD- simvastatin 40 mg every night - Chronic pain- Fentanyl patch 50 mcg/hr every 72 hours, oxycodone 10 mg p.o. 3 times daily - H/o alcohol abuse- Chlordiazepoxide HCl 25 mg p.o. 3 times daily VTE prophylaxis: SCDs CODE STATUS: Conditional - No cardiac intervention; OK for airway management Admission and Anticipated Discharge Date Admission Date: June 19, 2024 Subjective Patient seen and evaluated at bedside with present. History and review of systems difficult to obtain from patient secondary to tangential speech and what appears to be some confusion. notes he has some confusion at baseline secondary to dementia, however for the past couple weeks he has seemed significantly more confused. Patient denied any acute complaints but expressed frustration about being in the hospital. We discussed his acute UTI and waiting for PT/OT evaluations. No additional complaints or concerns at this time. Physical Exam Physical Exam: General: No acute distress, nondiaphoretic, well-developed, well-nourished. Frustrated regarding hospitalization. Cardiac: Regular rate and rhythm without murmurs gallops or rubs. Pulm: Clear to auscultation bilaterally without wheezes, rales or rhonchi. No respiratory distress. 95% on room air. Abdominal: Soft, nontender, nondistended. Bowel sounds present. No suprapubic tenderness. Neuro: A&O x3 (not situation). No focal neurological deficits. Results & Data Results & Data Vital Signs (Past 12 Hours) Vital Signs Temp Pulse Resp BP Pulse Ox O2 Del Method 06/20/24 14:46 97.9 F 67 15 124/67 95 Room Air 06/20/24 08:30 Room Air 06/20/24 08:07 64 06/20/24 08:00 97.3 F L 56 L 16 152/78 H 99 Room Air Laboratory Results Reviewed CBC Reviewed BMP Reviewed urine culture PG Care Time/CCT Total # of Minutes Spent Total Time Spent with Patient: Total time spent is greater than 50% in coordination of care (as documented) at patient's floor/unit and/or counseling patient: Coding Level of Care Code 55588 SUB INP/OBS CARE 2/35MIN Diagnoses Acute UTI N39.0 Chronic renal disease, stage III N18.3 Hyponatremia E87.1 Hypertension I10 Anemia D64.9 Dementia F03.90
--- NOTE | 2024-06-21 08:19 | Hospitalist Progress Note ---
Date of Service June 21, 2024 Assessment & Plan (1) Acute UTI: Plan: 79 M with metabolic encephalpathy from e coli uti poa - Urine culture growing E. coli, louis sensitive -> Ceftriaxone Of note, patient's is his caregiver. She stated she may be approaching a point where patient requires additional support/care - PT/OT consulted - Will ask case management to discuss additional options and provide resources (2) Chronic renal disease, stage III: Plan: Baseline creatinine 1.9-2.2 - Avoid nephrotoxic medications and renally dose medications when appropriate (3) Hyponatremia: Plan: Chronic hyponatremia since at least 2018 - Asymptomatic hyponatremia; also in the setting of recent poor oral intake - Continue to encourage oral hydration and monitor - Hypomagnesemia on admission, repleted and augmented appropriately (4) Hypertension: Plan: Ongoing; first documented in 2019 - Continue Metoprolol tartrate 25 mg daily at home - Hypotensive on admission but pressures have now normalized (5) Anemia: Plan: Chronic anemia, could be associated with renal disease - Baseline hemoglobin 9-10 - Hgb at baseline without signs of active bleeding (6) Dementia: Plan: Ongoing, at baseline per family - Patient states he walks with a walker, however states that he is unable to walk with a walker by himself - Fall precautions - PT/OT evals ordered; patient lives at home with Plan Chronic stable problems: - HLD- simvastatin 40 mg every night will stop given progression of dementia and age - Chronic pain- Fentanyl patch 50 mcg/hr every 72 hours, oxycodone 10 mg p.o. 3 times daily - H/o alcohol abuse- Chlordiazepoxide HCl 25 mg p.o. 3 times daily-> will begin to taper and address opiates try low dose seroquel to help with behavior control did poorly with PT however family not currently interested in rehab VTE prophylaxis: SCDs CODE STATUS: Conditional - No cardiac intervention; OK for airway management Admission and Anticipated Discharge Date Admission Date: June 19, 2024 Subjective pt is angry upon awakening, son at bedside and states that the pt has been very angry at home in past few weeks pt states that he has pain all over Physical Exam Physical Exam: awake and interactive cardiac exam is negative Results & Data Results & Data Vital Signs (Past 12 Hours) Vital Signs Temp Pulse Resp BP Pulse Ox O2 Del Method 06/20/24 22:05 Room Air 06/20/24 20:59 97.9 F 60 16 167/76 H 97 Room Air Laboratory Results review cbc review chemistry mild hyponatremia and elevated Cr PG Care Time/CCT Total # of Minutes Spent Total Time Spent with Patient: Total time spent is greater than 50% in coordination of care (as documented) at patient's floor/unit and/or counseling patient: Coding Level of Care Code 18378 SUB INP/OBS CARE 3/50MIN Diagnoses Acute UTI N39.0 Chronic renal disease, stage III N18.3 Hyponatremia E87.1 Hypertension I10 Anemia D64.9 Dementia F03.90
[2024-06-21 12:22] LABS: Hematocrit (blood only) 34.3 % (42.0-52.0); Hemoglobin 11.4 g/dl (14.0-18.0); Mean Corpuscular Hemoglobin 29.4 pg (25.0-34.0); Mean Corpuscular Hgb Conc 33.2 g/dL (32.0-36.0); Mean Corpuscular Volume 88.4 fL (80.0-100.0); Mean Platelet Volume 9.7 fL (9.4-12.4); Platelet Count 331 K/uL (130-400); RDW Coefficient of Variation 13.4 % (11.5-14.5); RDW Standard Deviation 43.7 fL (36.4-46.3); Red Blood Count 3.88 M/uL (4.70-6.10)
[2024-06-21] MEDS: chlordiazePOXIDE HCl 5 MG CAP PO SCH (12:31)
[2024-06-21 12:43] LABS: Anion Gap 7 (3-11); BUN Creatinine Ratio 28.6 (10-20); Blood Urea Nitrogen 59 mg/dl (6-23); Calcium 8.9 mg/dl (8.6-10.3); Carbon Dioxide 20 mmol/L (21-32); Chloride 106 mmol/L (98-107); Creatinine Clr Calc Pharmacy 27.6 ml/min; Glucose 108 mg/dl (70-99(Fasting)); Sodium 133 mmol/L (136-145)
[2024-06-21] MEDS: THIAMINE HCL 200 MG in SODIUM CHLORIDE 0.9% 50 ML IV STA (16:58)
[2024-06-21] MEDS: QUEtiapine FUMARATE 25 MG TABLET PO SCH (20:27)
[2024-06-22] MEDS: THIAMINE HCL 100 MG TAB PO SCH (09:44)
[2024-06-22] MEDS: AMOXICILLIN 500 MG CAP PO SCH (09:44)
[2024-06-22] MEDS: oxyCODONE HCL IR 5 MG TAB (IMMEDIATE RELEASE) PO PRN (09:50)
[2024-06-22] MEDS: fentaNYL 75 MCG/HR TDSY TD SCH (09:50)
[2024-06-22] MEDS: CHECK fentaNYL PATCH PLACEMENT SCH (17:31)
[2024-06-22 20:48] VITALS: TEMP 97.7
[2024-06-23 07:14] VITALS: BP 160/81; RESP 17; O2SAT 96
--- NOTE | 2024-06-23 10:26 | Discharge Summary ---
Discharge Summary Date of Service June 23, 2024 Principal Dx & Hospital Course #1 = Principal Diagnosis (1) Acute UTI: 79 M with metabolic encephalpathy from e coli uti poa - Urine culture growing E. coli, louis sensitive -> Ceftriaxone x 3 doses Complete with augmentin for 2 more days. Of note, patient's is his caregiver. She stated she may be approaching a point where patient requires additional support/care - PT/OT consulted - Appreciate input from case management. Will discharge home. Patient currently refusing home health. (2) Chronic renal disease, stage III: Baseline creatinine 1.9-2.2 - Avoid nephrotoxic medications and renally dose medications when appropriate (3) Hyponatremia: Chronic hyponatremia since at least 2018 - Asymptomatic hyponatremia; also in the setting of recent poor oral intake - Continue to encourage oral hydration and monitor - Hypomagnesemia on admission, repleted and augmented appropriately (4) Hypertension: Ongoing; first documented in 2019 - Continue Metoprolol tartrate 25 mg daily at home - Hypotensive on admission but pressures have now normalized (5) Anemia: Chronic anemia, could be associated with renal disease - Baseline hemoglobin 9-10 - Hgb at baseline without signs of active bleeding (6) Dementia: Ongoing, at baseline per family - Patient states he walks with a walker, however states that he is unable to walk with a walker by himself - Fall precautions - PT/OT evals ordered; patient lives at home with Plan Chronic stable problems: - HLD- simvastatin 40 mg every night will stop given progression of dementia and age - Chronic pain- Fentanyl patch 50 mcg/hr every 72 hours, oxycodone 10 mg p.o. 3 times daily - H/o alcohol abuse- Chlordiazepoxide HCl 25 mg p.o. 3 times daily-> will begin to taper and address opiates. Provided family with tapering instructions, but family will discuss with Dr. Ramirez as this has been a difficult issue to manage as patient gets anxious when off librium. try low dose seroquel to help with behavior control did poorly with PT however family not currently interested in rehab Admission HPI Per Admitting Provider Patient is 83-year-old gentleman presenting from outpatient appointment for abnormal labs suggestive of acute renal failure and urinary tract infection. Patient confused per family. ED course: CBC- WBC 11.16, RBC 3.68, H&H 10.6/31.9; PT/INR WNL; CMP- Na 130 (corrected 131), creatinine 2.82, BUN 75, ratio 26.6; magnesium 1.5; TSH 1.521; UA with 1+ protein, positive nitrite, 2+ LE, 21-50 WBC, 3-5 hyaline cast, 4+ bacteria; CXR no acute process; head CT moderate atrophy, no acute intracranial findings, no change in clearance of the brain, no calvarial fractures.; EKG NSR rate 67 bpm. Patient is an 83-year-old gentleman with PMHx CKD stage III, hypertension, GERD, dementia, dyslipidemia, anxiety, anemia presenting from referral from outpatient appointment on 06/17 for concerning labs suggestive of acute renal failure and urinary tract infection. Patient states that he has no symptoms, and he is only presenting because his lab results were abnormal. is present at the time of visit and helps provide history. States that patient had fallen proximally 2 to 3 weeks ago, and was evaluated in the ED. Since then his confusion has seemed to worsen on top of his baseline dementia and he has started to have nausea and episodes of emesis every time that he eats. She states that the patient has been acting abnormal in the past few days; yesterday he slept all day until 2100, when the patient's woke him up because he did not eat all day. Patient is very hard of hearing, and often goes off tangents when asked with caution. Is able to get the following responses: Occasional shortness of breath, but not current; denies chest pain, palpitations, abdominal pain, hematuria, diarrhea/constipation. Patient took all a.m. medications, but missed lunchtime doses. States that he has chronic pain, and does take around the clock medications for this as well as follow-up with pain management. Denies episode like this before. Please see Dr. Preciado's attestation for adjustments/additions to treatment plan. Discharge Exam awake and interactive cardiac exam is negative Discharge Plan Discharge Items Patient Disposition: Home - Self-Care Reason For Visit: UTI Discharge Diagnosis: urinary infection present on admission Condition on Discharge: Fair Activity: Resume your previous activity Non-emergency contact: Primary Care Provider Call non-emergency contact if: your symptoms worsen Follow-up/Referrals: Garcia Ramirez MD [Primary Care Provider] - Diet: Regular Addtl Attending Provider Instructions: Please complete your antibiotic we have adjusted your pain and anxiety medicines please see Dr Ramirez as soon as able to continue to adjust. Continue to abstain from alcohol while on librium. Starting on 06/24, please cut back to 15 mg twice a day. then on 06/26, cut back to 15 mg once a day. then 06/28, cut back to 10 mg once a day until you are done. Pending Studies at Discharge: No Stand-Alone Forms: My [facility], Smoking Cessation Medications and DC Order Prescriptions: New chlordiazepoxide HCl 5 mg Capsule 15 mg PO TID Qty: 30 0RF fentanyl 75 mcg/hr Patch 72 Hour 1 patch transdermal Q3D Qty: 10 0RF amoxicillin 500 mg Capsule 500 mg PO BID Qty: 6 0RF quetiapine 25 mg Tablet 25 mg PO HS Qty: 30 0RF Continued diphenhydramine-acetaminophen [Tylenol PM Extra Strength] 25-500 mg tablet 1 tab PO HS PRN (Reason: Pain, Moderate) aspirin 325 mg tablet 325 mg PO DAILY chlordiazepoxide HCl 25 mg capsule 25 mg PO TID cholecalciferol (vitamin D3) 1,000 unit capsule 1,000 units PO DAILY Cholestyramine Light 4 gram powder 4 gm PO DAILY clotrimazole 10 mg shanon 10 mg mucous membrane DAILY finasteride 5 mg tablet 5 mg PO DAILY ibuprofen 200 mg tablet 200 mg PO QID PRN (Reason: Pain, Mild) loperamide [Imodium A-D] 2 mg tablet 2 mg PO Q6H metoprolol tartrate 25 mg tablet 25 mg PO DAILY multivitamin capsule 1 cap PO DAILY nystatin 100,000 unit/mL suspension 5 ml BUCCAL QID simvastatin 40 mg tablet 40 mg PO QPM tamsulosin 0.4 mg capsule 0.4 mg PO DAILY Changed oxycodone 10 mg tablet 10 mg PO TID PRN (Reason: pain) Qty: 10 0RF Discontinued fentanyl 37.5 mcg/hour patch 72 hour 1 patch TD Q72H fentanyl 50 mcg/hr patch 72 hour 1 patch transdermal DIRECTED Discharge Orders: Discharge Order (Routine); Ordered 06/23/24 Ordered By: Nomi Purdy Admission Data Admit Date/Time: 06/21/24 15:10 Attending Provider: Nomi Purdy Admit Provider: Clifford Preciado Primary Care Provider: Garcia Ramirez Other Providers: Clifford Preciado Hospital Stay Data Diagnostic Imagining Performed 06/19/24 13:55 CT head/brain wo con Stat Pending Results Patient Have Any Pending Studies at Discharge: No Discharge Instructions Given to Patient (Per Discharging Provider) Please complete your antibiotic we have adjusted your pain and anxiety medicines please see Dr Ramirez as soon as able to continue to adjust. Continue to abstain from alcohol while on librium. Starting on 06/24, please cut back to 15 mg twice a day. then on 06/26, cut back to 15 mg once a day. then 06/28, cut back to 10 mg once a day until you are done. Total Time Total Time Spent Total Time Spent (In Minutes): 35 Coding Level of Care Code 07536 INP/OBS DISCH >30 MIN Diagnoses Acute UTI N39.0 Chronic renal disease, stage III N18.3 Hyponatremia E87.1 Hypertension I10 Anemia D64.9 Dementia F03.90
[2024-06-23 10:33] VITALS: PULSE 65
== END 2024-06-23 11:00 | disposition home or self-care (01) | DRG 689 ==
LOC: ED 12:09 → 3N 12:09 → SUATTDRO 16:39 → 3N 17:35 → SUATTDRO 06-21 15:10

== ENCOUNTER 2024-08-27 18:05 | Inpatient (IN) ==
--- NOTE | 2024-08-27 18:19 | Emergency Department Note ---
Impression & Plan Opioid dependence, Recurrent falls, Hypomagnesemia, Anemia ED Provider Note NAME: JULIO DURANT AGE: 83 SEX: M : 1940 ARRIVES VIA: Ambulance INFORMANT: Patient, EMS, the patient's family ED PROVIDER(S): Henri Wilkerson DO CHIEF COMPLAINT: Generalized pain HPI: The patient is an 83-year-old male who presented to the emergency department for pain. The patient has a history of back pain. He also has a history of opiate dependence as well as alcohol abuse. The patient's been declining over the course the last several days. His significant other's been trying to get the patient in with hospice or at least palliative medicine. They have been trying through the family doctor with multiple attempts and they have been unsuccessful. The patient presented to the emergency department by ambulance at the request of the family doctor. ROS: See above HPI for pertinent positives & negatives. A total of 10 systems reviewed and were otherwise negative. PAST MEDICAL HISTORY: See Below PAST SURGICAL HISTORY: See Below FAMILY HISTORY: See Below SOCIAL HISTORY: See Below HOME MEDICATIONS: See Below ALLERGIES: See Below VITALS: See Below PHYSICAL EXAMINATION: GENERAL: The patient is awake and alert. He appears comfortable. EYES: The conjunctivae are pale. The pupils are round and reactive. EARS, NOSE, MOUTH AND THROAT: The nose is without any evidence of any deformity. Mucous membranes are dry. NECK: The neck is nontender and supple. RESPIRATORY: Normal respiratory effort is noted there is no evidence of wheezing rhonchi or rales CARDIOVASCULAR: Regular rate and rhythm noted there no murmurs rubs or gallops normal S1 normal S2. GASTROINTESTINAL: The abdomen is soft. Abdomen is nontender. MUSCULOSKELETAL/EXTREMITIES: There is no evidence of gross deformity full range of motion is noted in the hips and shoulders. SKIN: Skin is warm and dry. There is no significant pedal edema. NEUROLOGIC: Patient is awake and oriented to person place and situation. Strength was symmetric. MEDICAL DECISION MAKING: The patient is an 83-year-old male who presented to the emergency department by ambulance at the request of his primary care physician. The patient has been in decline over the last several weeks. He does have a history of alcohol abuse. He also takes chronic pain medication. The patient's family doctor has been involved with the patient's care. They have been trying to arrange hospice but they have not been able to. The patient was treated with pain medication in the emergency department. He is also treated with IV fluids. I discussed the patient's laboratory and radiographic studies with the family. [facility] also [facility] Nursing notes reviewed. Prior medical records reviewed Vital Signs: reviewed and remarkable for hypotension. Differential diagnosis: Infection, dehydration, metabolic abnormality, hypo/hyperglycemia, electrolyte disturbance, anemia, hypoxia, cardiac sources, intracerebral event, toxicologic, neurologic, as well as other pathologies. ER treatment provided: See below Diagnostics interpreted by me: ECG: EKG was obtained in the emergency department. My interpretation is sinus bradycardia at 57 bpm. PACs were noted. There is no acute ST segment abnormalities noted. This was compared to a tracing from June 19, 2024. No changes were noted. Cardiac Monitoring: An order was placed for continuous cardiac monitoring. The monitor shows a rate of 56 bpm with sinus bradycardia. Laboratory studies: As stated above and show below. Imaging studies: See below. Radiographic imaging was reviewed by myself Consultation(s): Dr. Acosta who is the [facility] was notified about the patient. Past Med/Surg History Problem List (Updated 08/27/24 @ 21:19 by Henri Wilkerson DO) Anemia (Acute) Hypomagnesemia (Acute) Hypotension Hypomagnesemia Acute kidney injury superimposed on CKD Lumbago (Chronic) Myofascial pain (Acute) Alcohol abuse (Chronic) Vocal cord leukoplakia (Chronic) Tobacco use (Chronic) Recurrent falls (Chronic) Opioid dependence (Chronic) GERD (gastroesophageal reflux disease) (Chronic) Dyslipidemia (Chronic) Arteriosclerosis of carotid artery (Chronic) Anxiety (Chronic) Clostridium difficile enterocolitis (Acute) Chronic pain syndrome (Chronic 12/15/11) Closed head injury (Chronic) Medical History (Updated 08/27/24 @ 21:19 by Henri Wilkerson DO) Weakness Chronic renal disease, stage III Hypertension Dementia Anemia Neck sprain Concussion syndrome Social History Smoking Status: Former smoker Tobacco Type: Cigarettes Second Hand Exposure: No; Do You Dip or Chew Tobacco: No; Hx Alcohol Use: Yes Alcohol type: hard liquor Hx Substance Use: No Preferred Language: Palauan Communication Ability: Effective Visual Impairment: Limited Hearing Ability: Hard of Hearing Debubblizer Required: No Beliefs That Will Affect Care: None marital status: Current Living Situation: Spouse Feels Safe at Home: Yes Assistive Devices: Wheelchair Allergies Allergies Allergy/AdvReac Type Severity Reaction Status Date / Time No Known Allergies Allergy Verified 12/20/18 09:46 Home Meds Home Medications Medication Instructions Recorded Confirmed aspirin 325 mg tablet 325 mg PO DAILY 11/15/18 06/19/24 chlordiazepoxide HCl 25 mg capsule 25 mg PO TID 11/15/18 06/19/24 cholecalciferol (vitamin D3) 25 1,000 units PO DAILY 11/15/18 06/19/24 mcg (1,000 unit) capsule cholestyramine-aspartame 4 gram 4 gm PO DAILY 11/15/18 06/19/24 oral powder (Cholestyramine Light) clotrimazole 10 mg shanon 10 mg mucous membrane DAILY 11/15/18 06/19/24 diphenhydramine 25 1 tab PO HS PRN Pain, Moderate 11/15/18 06/19/24 mg-acetaminophen 500 mg tablet (Tylenol PM Extra Strength) finasteride 5 mg tablet 5 mg PO DAILY 11/15/18 06/19/24 ibuprofen 200 mg tablet 200 mg PO QID PRN Pain, Mild 11/15/18 06/19/24 loperamide 2 mg tablet (Imodium 2 mg PO Q6H 11/15/18 06/19/24 A-D) metoprolol tartrate 25 mg tablet 25 mg PO DAILY 11/15/18 06/19/24 multivitamin 1 cap PO DAILY 11/15/18 06/19/24 nystatin 100,000 unit/mL oral 5 ml buccal QID 11/15/18 06/19/24 suspension simvastatin 40 mg tablet 40 mg PO QPM 11/15/18 06/19/24 tamsulosin 0.4 mg capsule 0.4 mg PO DAILY 11/15/18 06/19/24 Previous Rx's Medication Instructions Recorded chlordiazepoxide HCl 5 mg capsule 15 mg (3 x 5 mg) PO TID #30 caps 06/22/24 fentanyl 75 mcg/hr transdermal 1 patch transdermal Q3D #10 ea 06/22/24 patch oxycodone 10 mg tablet 10 mg PO TID PRN pain #10 tabs 06/22/24 amoxicillin 500 mg capsule 500 mg PO BID #6 caps 06/23/24 quetiapine 25 mg tablet 25 mg PO HS #30 tabs 06/23/24 Results & Data (ED) Vital Signs Vital Signs - 24 hr 08/27/24 18:01 08/27/24 18:11 08/27/24 18:32 Temperature 36.1 C L Temperature Source Temporal Artery Scan Pulse Rate 65 60 Pulse Rate [Apical] Respiratory Rate 18 Respiratory Effort / Characteristics Non-Labored Spontaneous Respiratory Depth Normal Respiratory Pattern Regular Blood Pressure 86/58 L Blood Pressure [Right Arm] Blood Pressure Mean 67 Blood Pressure Mean [Right Arm] Pulse Oximetry 97 95 Oxygen Delivery Method Room Air Room Air Sepsis Recent Fever Within 48 Hours No Sepsis New/Unexplained Change in Mental Status N/A Sepsis Action Taken by Nursing No Action Required 08/27/24 19:00 Temperature Temperature Source Pulse Rate Pulse Rate [Apical] 56 L Respiratory Rate 18 Respiratory Effort / Characteristics Non-Labored Spontaneous Respiratory Depth Normal Respiratory Pattern Regular Blood Pressure Blood Pressure [Right Arm] 106/57 L Blood Pressure Mean Blood Pressure Mean [Right Arm] 73 Pulse Oximetry 95 Oxygen Delivery Method Room Air Sepsis Recent Fever Within 48 Hours Sepsis New/Unexplained Change in Mental Status Sepsis Action Taken by [facility] Medications Current Medication List: was personally reviewed by me Laboratory Data Attestation: I reviewed the patient's lab results. 08/27/24 18:19 08/27/24 18:19 Lab Results 08/27/24 08/27/24 08/27/24 Range/Units 18:19 19:09 20:22 WBC 9.92 (4.8-10.8) K/ul RBC 3.40 L (4.70-6.10) M/uL Hgb 9.8 L (14.0-18.0) g/dl Hct 29.8 L (42.0-52.0) % MCV 87.6 (80.0-100.0) fL MCH 28.8 (25.0-34.0) pg MCHC 32.9 (32.0-36.0) g/dL RDW Std Deviation 42.9 (36.4-46.3) fL RDW Coeff of Nghia 13.3 (11.5-14.5) % Plt Count 252 (130-400) K/uL MPV 10.2 (9.4-12.4) fL Immature Gran % (Auto) 0.4 % Neut % (Auto) 67.9 % Lymph % (Auto) 21.3 % [place] % (Auto) 6.9 % Eos % (Auto) 3.0 % Baso % (Auto) 0.5 % Neut # (Auto) 6.74 H (1.40-6.50) K/uL Lymph # (Auto) 2.11 (1.20-3.40) K/uL [place] # (Auto) 0.68 H (0.11-0.59) K/uL Eos # (Auto) 0.30 (0.00-0.50) K/uL Baso # (Auto) 0.05 (0.00-0.20) K/uL Immature Gran # (Auto) 0.04 (0.01-0.20) K/uL PT 10.7 (9.0-12.0) Seconds INR 1.0 (0.9-1.1) APTT 32 H (21-31) Seconds PTT Ratio 1.2 VBG pH 7.30 L (7.36-7.41) VBG pCO2 48 (38-50) mmHg VBG pO2 28 mmHg VBG HCO3 24 mmol/L VBG O2 Saturation < 60.0 % VBG Base Excess -3.2 mEq/L Sodium 131 L (136-145) mmol/L Potassium 4.1 (3.5-5.1) mmol/L Chloride 100 (98-107) mmol/L Carbon Dioxide 22 (21-32) mmol/L Anion Gap 9 (3-11) BUN 78 H (6-23) mg/dl Creatinine 2.92 H (0.6-1.4) mg/dl Est Cr Clr Drug Dosing Not Reportable eGFR 20.51 BUN/Creatinine Ratio 26.7 H (10-20) Glucose 107 H (70-99(Fasting)) mg/dl Lactate 0.8 (0.4-2.0) mmol/L Calcium 8.6 (8.6-10.3) mg/dl Magnesium 1.5 L (1.7-2.4) mg/dl Total Bilirubin 0.3 (0.2-1.0) mg/dl Direct Bilirubin 0.0 (0-0.2) mg/dl AST 15 (13-39) U/L ALT 9 (7-52) U/L Alkaline Phosphatase 56 (34-104) U/L Ammonia 11.0 L (18-72) umol/L Total Creatine Kinase 108 (30-223) U/L Troponin I High Sens 19.7 (0-20) pg/ml Total Protein 5.8 L (6.0-8.3) gm/dl Albumin 3.3 L (3.4-5.0) gm/dl Procalcitonin 0.14 (0-0.5) ng/ml Urine Color Yellow Urine Appearance Clear (Clear) Urine pH 5.5 (4.5-7.5) Ur Specific [place]venel 1.015 (1.000-1.030) Urine Protein 1+ H (Negative) Urine Glucose (UA) Negative (Negative) Urine Ketones Negative (Negative) Urine Blood Negative (Negative) Urine Nitrite Negative (Negative) Urine Bilirubin Negative (Negative) Urine Urobilinogen Negative (Negative) Ur Leukocyte Esterase Trace H (Negative) Urine WBC (Auto) 0-5 (0-5) /hpf Urine RBC (Auto) 0-2 (0-2) /hpf U Hyaline Cast (Auto) 6-10 H (0-2) /lpf U Epithel Cells (Auto) 0-2 (0-2) /hpf Urine Bacteria (Auto) None Seen (None Seen) Hyaline Casts Present A (None Presnt) /lpf Ethyl Alcohol mg/dL < 10.0 (<10.0) mg/dl Administered Medications Discontinued Medications Chlordiazepoxide HCl (Chlordiazepoxide Hcl 25 Mg Cap) 25 mg PO NOW ONE Stop: 08/27/24 19:39 Last Admin: 08/27/24 19:57 Dose: 25 mg Documented By: WESLEY Magnesium Sulfate/Dextrose (Magnesium Sulfate / D5w) 1 gm in 100 mls @ 100 mls/hr IV NOW STA Stop: 08/27/24 20:02 Last Infusion: 08/27/24 20:32 Dose: Infused Documented By: Admin: 08/27/24 19:32 Dose: 100 mls/hr Documented By: WESLEY Sodium Chloride (Nss) 1,000 mls @ 999 mls/hr IV .Q1H1M ONE Stop: 08/27/24 20:30 Last Infusion: 08/27/24 20:34 Dose: Infused Documented By: Admin: 08/27/24 19:33 Dose: 999 mls/hr Documented By: WESLEY Oxycodone HCl (Oxycodone Hcl Ir 5 Mg Tab (Immediate Release)) 10 mg PO NOW STA Stop: 08/27/24 19:39 Last Admin: 08/27/24 19:57 Dose: 10 mg Documented By: WESLEY Imaging Data Attestation: I personally reviewed and interpreted this imaging study as follows: My Impression: 1 view chest x-ray was obtained in the emergency department. My interpretation is no free air or definite infiltrate, final report below. Radiologist's Impression: Chest X-Ray 08/27/24 18:11 INDICATION: Cough. TECHNIQUE: Frontal radiograph of the chest. COMPARISON: Radiograph from 06/19/2024. FINDINGS: Mild cardiomegaly. Pulmonary vasculature appear within normal limits. Subsegmental atelectasis in the lung bases. No infiltrate, pleural effusion or pneumothorax. No acute osseous abnormality evident. IMPRESSION: No acute cardiopulmonary process. Electronically signed by Alex Saavedra 08-27-2024 6:47 PM Discharge Plan Visit Data Chief Complaint: Altered Mental Status Stated Complaint: AMS ED Provider: Henri Wilkerson Discharge Problem: Opioid dependence, Recurrent falls, Hypomagnesemia, Anemia Patient Disposition: Being Evaluated by Hospitalist Forms Stand Alone Forms: My [facility] Prescriptions Prescriptions: No Action diphenhydramine-acetaminophen [Tylenol PM Extra Strength] 25-500 mg tablet 1 tab PO HS PRN (Reason: Pain, Moderate) aspirin 325 mg tablet 325 mg PO DAILY chlordiazepoxide HCl 25 mg capsule 25 mg PO TID cholecalciferol (vitamin D3) 1,000 unit capsule 1,000 units PO DAILY Cholestyramine Light 4 gram powder 4 gm PO DAILY clotrimazole 10 mg shanon 10 mg mucous membrane DAILY finasteride 5 mg tablet 5 mg PO DAILY ibuprofen 200 mg tablet 200 mg PO QID PRN (Reason: Pain, Mild) loperamide [Imodium A-D] 2 mg tablet 2 mg PO Q6H metoprolol tartrate 25 mg tablet 25 mg PO DAILY multivitamin capsule 1 cap PO DAILY nystatin 100,000 unit/mL suspension 5 ml BUCCAL QID simvastatin 40 mg tablet 40 mg PO QPM tamsulosin 0.4 mg capsule 0.4 mg PO DAILY oxycodone 10 mg tablet 10 mg PO TID PRN (Reason: pain) Qty: 10 0RF chlordiazepoxide HCl 5 mg Capsule 15 mg PO TID Qty: 30 0RF fentanyl 75 mcg/hr Patch 72 Hour 1 patch transdermal Q3D Qty: 10 0RF amoxicillin 500 mg Capsule 500 mg PO BID Qty: 6 0RF quetiapine 25 mg Tablet 25 mg PO HS Qty: 30 0RF Referrals Referrals: Garcia Ramirez MD [Primary Care Provider] - Discharge Problem: Opioid dependence Qualifiers: Substance use status: with unspecified opioid-induced disorder Qualified Code(s): F11.29 - Opioid dependence with unspecified opioid-induced disorder Anemia Qualifiers: Anemia type: unspecified type Qualified Code(s): D64.9 - Anemia, unspecified
[2024-08-27 18:28] LABS: Base Excess VBG -3.2 mEq/L; HCO3 VBG 24 mmol/L; Oxygen Saturation VBG < 60.0 %; PCO2 VBG 48 mmHg (38-50); PO2 VBG 28 mmHg
[2024-08-27 18:35] LABS: Basophils # (auto) 0.05 K/uL (0.00-0.20); Basophils % (auto) 0.5 %; Hematocrit (blood only) 29.8 % (42.0-52.0); Hemoglobin 9.8 g/dl (14.0-18.0); Immature Granulocytes # (auto) 0.04 K/uL (0.01-0.20); Immature Granulocytes % (auto) 0.4 %; Lymphocytes # (auto) 2.11 K/uL (1.20-3.40); Lymphocytes % (auto) 21.3 %; Mean Corpuscular Hemoglobin 28.8 pg (25.0-34.0); Mean Corpuscular Hgb Conc 32.9 g/dL (32.0-36.0); Mean Corpuscular Volume 87.6 fL (80.0-100.0); Mean Platelet Volume 10.2 fL (9.4-12.4); Monocytes # (auto) 0.68 K/uL (0.11-0.59); Monocytes % (auto) 6.9 %; Neutrophils # (auto) 6.74 K/uL (1.40-6.50); Neutrophils % (auto) 67.9 %; Platelet Count 252 K/uL (130-400); RDW Coefficient of Variation 13.3 % (11.5-14.5); RDW Standard Deviation 42.9 fL (36.4-46.3); White Blood Count 9.92 K/ul (4.8-10.8)
--- NOTE | 2024-08-27 18:48 | XRay Report ---
INDICATION: Cough. TECHNIQUE: Frontal radiograph of the chest. COMPARISON: Radiograph from 06/19/2024. FINDINGS: Mild cardiomegaly. Pulmonary vasculature appear within normal limits. Subsegmental atelectasis in the lung bases. No infiltrate, pleural effusion or pneumothorax. No acute osseous abnormality evident. IMPRESSION: No acute cardiopulmonary process. Electronically signed by Alex Saavedra 08-27-2024 6:47 PM
[2024-08-27 18:52] LABS: Alanine Aminotransferase 9 U/L (7-52); Albumin Level 3.3 gm/dl (3.4-5.0); Alkaline Phosphatase 56 U/L (34-104); Anion Gap 9 (3-11); Aspartate Aminotransferase 15 U/L (13-39); BUN Creatinine Ratio 26.7 (10-20); Bilirubin,Total 0.3 mg/dl (0.2-1.0); Blood Urea Nitrogen 78 mg/dl (6-23); Calcium 8.6 mg/dl (8.6-10.3); Carbon Dioxide 22 mmol/L (21-32); Chloride 100 mmol/L (98-107); Creatine Kinase 108 U/L (30-223); Glucose 107 mg/dl (70-99(Fasting)); Magnesium 1.5 mg/dl (1.7-2.4); Potassium 4.1 mmol/L (3.5-5.1); Sodium 131 mmol/L (136-145); Total Protein 5.8 gm/dl (6.0-8.3)
[2024-08-27 18:58] LABS: Troponin I High Sensitivity 19.7 pg/ml (0-20)
[2024-08-27 19:02] LABS: Partial Thromboplastin Ratio 1.2; Partial Thromboplastin Time 32 Seconds (21-31); Prothrombin Time 10.7 Seconds (9.0-12.0)
[2024-08-27] MEDS: MAGNESIUM SULFATE / D5W 1 GM/100 ML BAG IV STA (19:32)
[2024-08-27] MEDS: SODIUM CHLORIDE 0.9% 1,000 ML IV ONE (19:33)
[2024-08-27] MEDS: oxyCODONE HCL IR 5 MG TAB (IMMEDIATE RELEASE) PO STA (19:57)
[2024-08-27] MEDS: chlordiazePOXIDE HCl 25 MG CAP PO ONE (19:57)
--- NOTE | 2024-08-27 20:17 | History & Physical Report ---
Date of Service August 27, 2024 Assessment & Plan (1) Weakness: Plan: -likely multifactorial in the setting of chronic decline with dementia, alcohol abuse, chronic pain syndrome - concern for acute worsening with poor PO intake/dehydration, UTI - s/p 1L IVF in ED will continue with an additional 1L NSS @80ml/hr overnight - PT/OT - family states this has been a gradual decline and ultimately would like to consider home with hospice if appropriate (2) Hypotension: Plan: - 86/53 on arrival now 106/57 s/p 1L IVF - without signs of acute infection-> no leukocytosis, afebrile, procal= 0.14-> poor PO intake, suspect hypotension secondary to dehydration - continue with maintenance fluids for an additional 1L as per above - f/u results UA; - hold home metoprolol (3) Acute kidney injury superimposed on CKD: Plan: - creatinine= 2.92, recent baseline of 2 - suspect pre-renal in the setting of poor PO intake - s/p 1L IVF in ED will continue with an additional 1L NSS @80ml/hr overnight - trend BMP (4) UTI (urinary tract infection): Plan: - UA with trace LE - urine culture is pending - ?if truly symptomatic but given that he is a male and similar presentation 06/2024 plan to treat - last urine culture 06/2024 grew louis sensitive E Coli-> plan to treat with ceftriaxone (5) Hypomagnesemia: Plan: - Mg= 1.5; repleted in ED - continue to trend (6) Myofascial pain: Plan: - continue home medications: Librium 25mg TID, fentanyl 50mcg patch, duloxetine 30mg daily (7) Alcohol abuse: Plan: - family denies recent alcohol use - ammonia= 11 - low risk for withdrawal; if concern arises during admission would add AWSS (8) Dyslipidemia: Plan: - continue statin (9) Anemia: Plan: - Hgb= 9.8 on admission without signs of acute bleeding - baseline hgb of ~10 - trend CBC Plan Diet: Regular; dysphagia screening pending Code: DNR/DNI Dispo: Med Tele VTE Prophylaxis: SCD History of Present Illness Primary Care Provider: Garcia Ramirez MD 83 year old male with a past medical history of alcohol abuse, chronic pain syndrome, GERD, HLD, anxiety, CKD, dementia presenting with increase weakness/confusion. Family reports that he has had a gradual decline in mental status and increased weakness over the past few months. Worse over the past 5 days, to the point where they are unable to care for him at home. Has been more confused, hallucination at night. Complaining of left shoulder pain that is chronic but flared. Multiple falls at home over the past few months, family denies any recent falls or injuries. Has been following with PCP. Spoke with PCP today and he recommend that he come in to be evaluated. Both pt and family have discussed whether hospice would be appropriate and are considering if he qualifies. Would like home hospice. ED Course Significant for: Hgb= 9.8, Creatinine= 2.92, Mg= 1.5. EKG with sinus jonnathan, PVCs.Ammonia=11. VBG unremarkable. CXR without acute pathology. UA with trace LE. Urine drug screen pending. S/p 1L NSS. Allergies Allergy/AdvReac Type Severity Reaction Status Date / Time No Known Allergies Allergy Verified 08/27/24 21:56 Home Medications Medication Instructions Recorded Confirmed Type aspirin 325 mg tablet 325 mg PO DAILY 11/15/18 08/27/24 History chlordiazepoxide HCl 25 mg capsule 25 mg PO TID 11/15/18 08/27/24 History cholecalciferol (vitamin D3) 25 1,000 units PO DAILY 11/15/18 08/27/24 History mcg (1,000 unit) capsule finasteride 5 mg tablet 5 mg PO DAILY 11/15/18 08/27/24 History ibuprofen 200 mg tablet 200 mg PO QID PRN Pain, Mild 11/15/18 08/27/24 History loperamide 2 mg tablet (Imodium 2 mg PO Q6H 11/15/18 08/27/24 History A-D) metoprolol tartrate 25 mg tablet 25 mg PO DAILY 11/15/18 08/27/24 History multivitamin 1 cap PO DAILY 11/15/18 08/27/24 History simvastatin 40 mg tablet 40 mg PO QPM 11/15/18 08/27/24 History tamsulosin 0.4 mg capsule 0.4 mg PO DAILY 11/15/18 08/27/24 History oxycodone 10 mg tablet 10 mg PO TID PRN pain #10 tabs 06/22/24 08/27/24 Rx quetiapine 25 mg tablet 25 mg PO HS #30 tabs 06/23/24 08/27/24 Rx duloxetine 30 mg capsule,delayed 30 mg PO DAILY 08/27/24 08/27/24 History release fentanyl 50 mcg/hr transdermal 50 mcg transdermal Q2D PAIN 08/27/24 08/27/24 History patch levofloxacin 500 mg tablet 500 mg PO DAILY 08/27/24 08/27/24 History Past Med/Surg History Problem List (Updated 08/27/24 @ 21:19 by Henri Wilkerson DO) Anemia (Acute) Hypomagnesemia (Acute) Hypotension Hypomagnesemia Acute kidney injury superimposed on CKD Lumbago (Chronic) Myofascial pain (Acute) Alcohol abuse (Chronic) Vocal cord leukoplakia (Chronic) Tobacco use (Chronic) Recurrent falls (Chronic) Opioid dependence (Chronic) GERD (gastroesophageal reflux disease) (Chronic) Dyslipidemia (Chronic) Arteriosclerosis of carotid artery (Chronic) Anxiety (Chronic) Clostridium difficile enterocolitis (Acute) Chronic pain syndrome (Chronic 12/15/11) Closed head injury (Chronic) Medical History (Updated 08/27/24 @ 21:19 by Henri Wilkerson DO) Weakness Chronic renal disease, stage III Hypertension Dementia Anemia Neck sprain Concussion syndrome Social History Smoking Status: Former smoker Tobacco Type: Cigarettes Cigarettes Per Day: 8 cigarettes/day 08/16 ppd; Smoking End Date: Pts state he quit smoking approx about 7 days ago-; Second Hand Exposure: No; Do You Dip or Chew Tobacco: No; Tobacco Cessation Education Requested by Patient: No Hx Alcohol Use: Yes Alcohol type: hard liquor Hx Substance Use: Yes Substance Use Type Other:: pt takes chronic pain medication Preferred Language: Yakut Communication Ability: Effective Visual Impairment: Limited Hearing Ability: Hard of Hearing [employer] Required: No Beliefs That Will Affect Care: None marital status: Current Living Situation: Spouse and Family Current Living Situation Comment: Pts lives with his and children Other Information That Helps Us Care for You: No (Pt lives at home, bed bound, and son hlep care for him and his needs) Feels Safe at Home: Yes Assistive Devices: Denture - Upper and Denture - Lower Assistive Devices Comment: upper and lower dentures Review of Systems Review of Systems: As per above Physical Exam Physical Exam: Constitutional: well-appearing, no acute distress HEENT: NCAT, no conjunctival injection CV: regular rhythm, no murmur appreciated, extremities well-perfused, no LE edema Resp: CTABL, no wheezes/rales/rhonchi appreciated, no increased work of breathing GI: soft, nondistended, nontender MSK: no gross deformities appreciated Skin: warm, dry, no rash appreciated Neuro: alert, oriented, no focal neurologic deficit appreciated- CN II-XII gr ossly intact, moving all extremities equally Results & Data Results & Data Vital Signs (Past 12 Hours) Vital Signs Temp Pulse Pulse Resp BP BP Pulse Ox 08/27/24 19:00 56 L 18 106/57 L 95 08/27/24 18:32 60 08/27/24 18:11 95 08/27/24 18:01 36.1 C L 65 18 86/58 L 97 O2 Del Method 08/27/24 19:00 Room Air 08/27/24 18:32 08/27/24 18:11 Room Air 08/27/24 18:01 Room Air Supervising Physician Co-Signing Physician Notes Attending addendum: I have physically seen this patient, have supervised the medical residents activities, and agree with the H&P unless as otherwise noted. Assessment and Plan: The patient is an 83-year-old male with past medical history including alcohol abuse, tobacco use, opioid dependence, GERD, dyslipidemia,, anxiety, BPH with LUTS, hypertension, hyperlipidemia and chronic pain syndrome. He presents to the emergency department with complaint of generalized weakness, decreased oral intake, generalized malaise and family concerns regarding need for inpatient rehab/ECF stay. Generalized weakness/failure to thrive- History of dementia, alcohol abuse, chronic pain syndrome with opiates Decreased oral intake over the past weeks Treated for urinary tract infection with E. coli 06/19/2024 Patient family reports that he has been in a gradual decline since that hospitalization from 06/19-06/23/2024, and would like him to be considered for hospice if appropriate Hypotension- Initial blood pressure 86/53 on arrival, improved to 106/57 after initial 1 L IV fluids Likely in part associated with infection due to UTI as well Hold home metoprolol Acute kidney injury superimposed on CKD- Creatinine 2.92, with base 2.06 Hydrate IV fluids as noted, give 1 L normal saline from the ED Continue NSS at 80 mL/h x 1 L overnight Repeat laboratories in the a.m. Hypomagnesemia- Magnesium 1.5 on admission Status post 1 g IV replacement in the ED Reassess in the a.m. Urinary tract infection- as noted, pansensitive E. coli treated on 06/19/2024 Follow urine culture sensitivity Empiric ceftriaxone 2 g IV daily Chronic medical conditions: Myofascial pain syndrome-continue Librium, fentanyl patch, oxycodone, quetiapine, and duloxetine History of alcohol abuse-No recent use, low risk for withdrawal at this time Hyperlipidemia-continue simvastatin Anemia: Hemoglobin 9.8, with range 9.5-11.4 Resident Activity Tracking Resident Involvement: Resident Care Provided Care Provided: Adult Hospital Medicine
[2024-08-27 20:48] LABS: Appearance Urine Clear (Clear); Bacteria Urine Automated None Seen (None Seen); Bilirubin Urine Negative (Negative); Blood Urine Negative (Negative); Color Urine Yellow; Epithelial Cell Urine Auto 0-2 /hpf (0-2); Glucose Urine UA Negative (Negative); Hyaline Casts Urine Present /lpf (None Presnt); Ketones Urine Negative (Negative); Leukocyte Esterase Urine Trace (Negative); Nitrite Urine Negative (Negative); Protein Urine 1+ (Negative); RBC Urine Automated 0-2 /hpf (0-2); Specific Gravity Urine 1.015 (1.000-1.030); Urobilinogen Urine Negative (Negative); WBC Urine Automated 0-5 /hpf (0-5); pH Urine 5.5 (4.5-7.5)
[2024-08-27 21:35] LABS: Amphetamines+Metham, Urine Neg (Neg); Barbiturates, Urine Neg (Neg); Benzodiazepine, Urine Pos (Neg); Cocaine, Urine Neg (Neg); Fentanyl, Urine Pos (Neg); MDMA (Ecstacy), Urine Neg (Neg); Marijuana, Urine Neg (Neg); Methadone, Urine Neg (Neg); Opiate, Urine Pos (Neg); Phencyclidine, Urine Neg (Neg)
[2024-08-27] MEDS: cefTRIAXone SODIUM 1,000 MG/50 ML BAG IV ONE (22:37)
[2024-08-27] MEDS: SODIUM CHLORIDE 0.9% 1,000 ML IV SCH (22:38)
[2024-08-27] MEDS: CHECK fentaNYL PATCH PLACEMENT SCH (23:23)
[2024-08-28] MEDS: ACETAMINOPHEN 500 MG TAB PO PRN (00:52)
--- OUTSIDE RECORDS SUMMARY | 2024-08-28 02:43 | External Medical Summary | Continuity of Care Document ---
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 Name Role Phone Garcia Ramirez Primary Care Physician [phone] Encounter [facility] FINNBR [id number] Date(s): 08/18/24 - 08/18/24 [facility] [address] [facility] [address] [facility] [address] [facility] [address] [place] [address] [phone] Encounter Diagnosis Right testicular pain(Discharge Diagnosis) - 08/18/24 Urinary incontinence(Discharge Diagnosis) - 08/18/24 Discharge Disposition: Home or Self Care Attending Physician: MD Ramirez Christopher Allergies, Adverse Reactions, Alerts Substance Criticality Severity Reaction Reaction Severity Status DULoxetine feeling weird Activ e Assessment and Plan Extracted from: Title:FCM - urinary complain t, ?scrotum, FTT Author:MD Ramirez Christopher Date:08/18/24 Right testicular pain Undifferentiated new problem with uncertain prognosis Goal: evaluation Data:US scrotum Plan: - UA today negative which is reassuring for UTI but scrotal TTP concerning - US as noted for further evaluation with precautions for worsening/changing symptoms and instructions for ED evaluation - strongly encourage FTT with admission to hospital, family understands situation and declines - consider abx for epididymitis vs. lab work for CBC, CMP, PSA vs. return for rectal examination Heterogeneous echotexture of the bilateral testicles, possibly orchitis without epididymitis per radiology stat read. Ongoing urinary symptoms and pain would indicate empiric therapy with levofloxacin to cover for e. coli. Called and notified patient and spouse and will start abx therapy this evening. Reinforced precautions re: both failure of treatment and ongoing failure to thrive, as well as short term follow up if no change in sx by day 2-3. Urinary incontinence as above Time:Total time spent with this patient on day of evaluation including chart review, ordering, education and coordination of care elements: 45 minutes Immunizations Given and Recorded Vaccine Date Status Refusal Reason influenza virus vaccine, inactivated 06/21/22 Give n influenza virus vaccine, inactivated 05/23/21 Give n influenza virus vaccine, inactivated 05/05/19 Give n SARS-CoV-2 (COVID-19) mRNA BNT-162b2 vax 1 12/09/20 Recorded SARS-CoV-2 (COVID-19) mRNA BNT-162b2 vax 2 10/21/20 Recorded pneumococcal 13-valent vaccine 06/04/19 Given 1Result Comment: 2021-05-23: Historical information-source unspecified 2Result Comment: 2021-05-23: Historical information-source unspecified Medications Albuterol (Eqv-ProAir HFA) 90 mcg/inh inhalation aerosol Start: 04/13/22 11:20:00 AM EDT, 2 puff, inhaled, q4h, Disp# 8 g, Refills: 2, Pharmacy: [id number] Start Date: 04/13/22 Stop Date: 07/12/22 Status: Ordered aspirin Start: 12/15/10 1:55:00 PM EDT, 325 mg =, PO, Daily Start Date: 12/15/10 Status: Ordered chlordiazePOXIDE 25 mg oral capsule Start: 08/13/24 2:56:00 PM EST, 1 cap, PO, tid, Disp# 90 cap, Refills: 0, Trying to reduce use from TID to BID, PRN: as needed for anxiety, Pharmacy: [id number] Start Date: 08/13/24 Stop Date: 09/12/24 Status: Ordered DULoxetine 30 mg oral delayed release capsule Start: 08/07/24 6:57:00 PM EST, 1 cap, PO, Daily, Disp# 30 cap, Refills: 2, Pharmacy: [id number] Start Date: 08/07/24 Stop Date: 11/05/24 Status: Ordered fentaNYL 50 mcg/hr transdermal film, extended release Start: 08/13/24 2:56:00 PM EST, 1 patch, topical, q48h, Disp# 15 patch, Refills: 0, Pharmacy: [id number] Start Date: 08/13/24 Stop Date: 09/12/24 Status: Ordered finasteride 5 mg oral tablet Start: 06/26/24 12:33:00 PM EST, See Instructions, Disp# 90 tab, Refills: 4, TAKE ONE TABLET BY MOUTH EVERY DAY, Pharmacy: [id number] Start Date: 06/26/24 Status: Ordered levoFLOXacin 500 mg oral tablet Start: 08/18/24 5:16:00 PM EST, 1 tab, PO, q24h, Disp# 10 tab, X 10 day, Stop: 08/28/24 5:16:00 PM EST, Pharmacy: [id number] Start Date: 08/18/24 Stop Date: 08/28/24 Status: Ordered lisinopril 40 mg oral tablet Start: 06/07/23 5:18:00 PM EDT, 1 tab, PO, Daily, Disp# 90 tab, Refills: 4, Pharmacy: [id number] Start Date: 06/07/23 Status: Ordered Metoprolol Succinate ER 25 mg oral tablet, extended release Start: 12/03/23 10:43:00 AM EDT, 1 tab, PO, Daily, Disp# 90 tab, Refills: 4, Pharmacy: [id number] Start Date: 12/03/23 Status: Ordered Narcan 4 mg/0.1 mL nasal spray Start: 11/25/18 4:16:00 PM EDT, 4 mg =, intranasal, ONCE, Disp# 2 each, Refills: 1, may repeat every2 to 3 minutes until patient responds, call 911 Start Date: 11/25/18 Status: Ordered oxyCODONE 10 mg oral tablet Start: 08/13/24 2:56:00 PM EST, 10 mg =, PO, q8h, Disp# 90 tab, Refills: 0, PRN: Pain, [facility] Start Date: 08/13/24 Stop Date: 09/12/24 Status: Ordered QUEtiapine 25 mg oral tablet Start: 06/26/24 12:28:00 PM EST, 0.5 tab, PO, qhs, Disp# 45 tab, Pharmacy: [id number] Start Date: 06/26/24 Stop Date: 09/24/24 Status: Ordered simvastatin 40 mg oral tablet Start: 09/03/23 4:11:00 PM EST, 1 tab, PO, qhs, Disp# 90 tab, Refills: 4, Pharmacy: [id number] Start Date: 09/03/23 Status: Ordered Tylenol Start: 12/09/21 8:33:00 AM EDT, as needed Start Date: 12/09/21 Status: Ordered Vitamin D3 1000 intl units oral capsule Start: 11/13/17 10:40:00 AM EDT, 1 cap, PO, Daily Start Date: 11/13/17 Status: Ordered Problem List Condition Confirmation Course Effective Dates Status H ealth Status Informant Anxiety Confirmed Active Arteriosclerosis of carotid artery 1 Confirmed Active Carotid stenosis Confirmed Active CKD (chronic kidney disease), stage III Confirmed Active Chronic pain syndrome Confirmed Active Dementia Confirmed Active Dyslipidemia Confirmed Active COPD with chronic bronchitis Confirmed 04/13/22 Active Gastroesophageal reflux disease Confirmed Active Hearing loss Confirmed Active Status post total right knee replacement Confirmed Active Hypertension Confirmed Active 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 Confirmed Active Microcytic hypochromic anemia Confirmed Active Opioid type drug dependence Confirmed Active Arthritis of wrist, right, degenerative Confirmed Active Peripheral vascular disease Confirmed 12/08/21 Active Recurrent falls Confirmed Active Tendonitis of left rotator cuff Confirmed Active Tobacco user Confirmed Active Post-traumatic osteoarthritis of right hip Confirmed Active Benign prostatic hyperplasia with urinary frequency Confirmed Active Urinary incontinence Confirmed Active Decreased vision Confirmed Active Weight loss Confirmed Active 1Eval'd by vascular surgery in 2020 without need for intervention Diagnosis Diagnosis Type Effective Dates Health Status Clinical Service Informant Right testicular pain Discharge Diagnosis 08/18/24 Non-Specified Urinary incontinence Discharge Diagnosis 08/18/24 Non-Specified Procedures Procedure Date Related Diagnosis Body Site Status Left Shoulder X-ray 1 01/26/21 Com pleted Plain X-ray of right wrist 2 01/26/21 Completed X-ray of right ankle 3 01/26/21 Co mpleted X-ray of bone of hip 4 06/17/19 Co mpleted Cervical spine X-ray 5 10/24/18 Co mpleted Cholecystectomy; Complete d Colonoscopy Completed Hip replacement Completed Knee replacement Complete d Leg repair Completed Procedure on back Complet ed Procedure on foot LEFT Co mpleted Procedure on foot RIGHT C ompleted Repair of hip Completed 1Mild osteoarthritis within the left shoulder. No fractures 2impression 1. Soft tissue edema with on acute bony abnormality identified 2 Extensive chronic deformity and degenerative changes throughout the wrist with complete collapse ofproximal carpal row. these findings are similar to examination 31. Soft tissue edema with no acute bony abnormality identified. 2. Osteopenia with postoperative and advanced degenerative change as above. 41. no acute fx or dislocation 2. degenerative and postoperative changes as above 5impression: 1 No acute fracture within visualized portions of the cervical spine C7 partialy obscured 2. Moderate to marked multilevel degenerative disc disease and facet arthrosis Social History Social History Type Response Tobacco Current every day sm oker, Cigarettes, Started age 12 Years. Smoking Status Current every day he elmer smoker Sex Male Sex Representation Male (finding) FCM Outpt Note * MD James, Garcia: MODIFY, PERFORM Event Display: FCM Outpt Note Authored Date: Assessment/Plan Right testicular pain Undifferentiated new problem with uncertain prognosis Goal: evaluation Data:US scrotum Plan: - UA today negative which is reassuring for UTI but scrotal TTP concerning - US as noted for further evaluation with precautions for worsening/changing symptoms and instructions for ED evaluation - strongly encourage FTT with admission to hospital, family understands situation and declines - consider abx for epididymitis vs. lab work for CBC, CMP, PSA vs. return for rectal examination Heterogeneous echotexture of the bilateral testicles, possibly orchitis without epididymitis perradiology stat read. Ongoing urinary symptoms and pain would indicate empiric therapy with levofloxacin to cover for e. coli. Called and notified patient and spouse and will start abx therapy this evening. Reinforced precautions re: both failure of treatment and ongoing failure to thrive, as well as short term follow up if no change in sx by day 2-3. Urinary incontinence as above Time:Total time spent with this patient on day of evaluation including chart review, ordering, education and coordination of care elements: 45 minutes History of Present Illness Urinary incontinence and frequency with stooling issues in the setting of FTT in an adult - newly reported increase in incontinence episodes in the bed, urinary frequency otherwise - similar to previous UTI which resulted in hospitalization - no apparent triggering instance, trauma. Reports no fever, chills, abd pain, nausea, appetite changes - also having alternating constipation and diarrhea in the setting of overuse of laxatives and immodium - spouse with broken ankle, son has been living with them for 3 weeks to help care for him at home - significant h/o FTT, see previous notes, with re-affirmed desire for staying at home, current level of support - spouse is aware and engaged with services, but not utilizing yet Physical Exam General: _Alert and oriented, No acute distress Cardiovascular: _Normal rate, Regular rhythm, No murmur, No gallop. Respiratory: _Lungs are clear to auscultation, Respirations are non-labored, Breath sounds are equal Psych: Mood-affect congruence. Reports no SI/HI. Speech is of normal pace and content Gastrointestinal: _Soft, Non-tender, Non-distended, Normal bowel sounds. Genital exam: R testicular TTP on examination out of proportion with expectation, no penile erythema or TTP appreciated. Defer rectal at present. 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 Peripheral vascular disease Post-traumatic osteoarthritis of right hip Recurrent falls Status post total right knee replacement Tendonitis of left rotator cuff Tobacco user Urinary incontinence Vocal cord leukoplakia Weight loss Resolved Fractures Procedure/Surgical History Left Shoulder X-ray| Service Date: 1Plain X-ray of right wrist| Service Date: 01/26/2021X-ray of right ankle| Service Date: 01/26/2021X- ray of bone of hip| Service Date: 06/17/2019Cervical spine X-ray| Service Date: 10/24/2018Leg repairRepair of hipHip replacementProcedure on foot LEFTProcedure on foot RIGHTColonoscopyProcedure on backCholecystectomy;Knee replacement Medications acetaminophen(Tylenol) albuterol(Albuterol (Eqv-ProAir HFA) 90 mcg/inh inhalation aerosol), 2 puff, inhaled, q4h, 2 refills aspirin, 325 mg, PO, Daily chlordiazePOXIDE(chlordiazePOXIDE 25 mg oral capsule), 25 mg= 1 cap, PO, tid, PRN cholecalciferol(Vitamin D3 1000 intl units oral capsule), 1000 Int_Unit= 1 cap, PO, Daily DULoxetine(DULoxetine 30 mg oral delayed release capsule), 30 mg= 1 cap, PO, Daily, 2 refills fentaNYL(fentaNYL 50 mcg/hr transdermal film, extended release), 1 patch, topical, q48h finasteride(finasteride 5 mg oral tablet), See Instructions, 4 refills lisinopril(lisinopril 40 mg oral tablet), 1 tab, PO, Daily metoprolol(Metoprolol Succinate ER 25 mg oral tablet, extended release), 1 tab, PO, Daily naloxone(Narcan 4 mg/0.1 mL nasal spray), 4 mg, intranasal, ONCE, 1 refills oxyCODONE(oxyCODONE 10 mg oral tablet), 10 mg, PO, q8h, PRN QUEtiapine(QUEtiapine 25 mg oral tablet), 12.5 mg= 0.5 tab, PO, qhs simvastatin(simvastatin 40 mg oral tablet), 1 tab, PO, qhs Allergies DULoxetinefeeling jaelyn Social History Smoking Status Current every day heavy smoker Alcohol Use:Past Type:Beer, Liquor Frequency:Daily - Comments: history of alcohol abuse in remission Nutrition/Health Type of diet:Regular Caffeine intake amount:6+ cups in the morning for decades Wants to lose weight:No Sleeping concerns:Yes Feels highly stressed:No Tobacco Use:Current every day smoker Type:Cigarettes Started at age:12Years Family History Cancer: Unknown. Health Status Family Member(s) Immunizations Vaccine Date Status influenza virus vaccine, inactivated 06/21/2022 Given influenza virus vaccine, inactivated 05/23/2021 Given SARS-CoV-2 (COVID-19) mRNA BNT-162b2 vax 12/09/2020 Recorded Comments : 2021-05-23: Historical information-source unspecified SARS-CoV-2 (COVID-19) mRNA BNT-162b2 vax 10/21/2020 Recorded Comments : 2021-05-23: Historical information-source unspecified pneumococcal 13-valent vaccine 06/04/2019 Given influenza virus vaccine, inactivated 05/05/2019 Given Recommendations Health Maintenance Pending(in the next year) OverDue Medicare Annual Wellness Visit due04/13/23and every 1year Adult Influenza Vaccine due02/11/24and every 1year Due Adult COVID-19 Vaccination due08/18/24Unknown Frequency Adult Social Determinants of Health Screening due08/18/24Unknown Frequency Adult Tdap/Td Vaccine due08/18/24Unknown Frequency Body Mass Index due08/18/24Unknown Frequency Falls Plan of Care due08/18/24Unknown Frequency Pneumococcal Vaccine Older Adults due08/18/24One-time only Shingles Vaccine due08/18/24One-time only Satisfied(in the past 1 year) There are no satisfied recommendations within the defined date range Electronic Signature on File Electronically Reviewed/Signed by: Garcia Ramirez MD Author Signature Dt/Tm:08/18/2024 03:20 PM Department of Family Medicine Electronically Reviewed/Signed by: Garcia Ramirez MD Cosigner Signature Dt/Tm: 08/18/2024 05:19PM Department of Family Medicine [facility] Patient Care team information Care Team Personnel Name: MD Ramirez Christopher Position: Physician - Family Med Member Role: Primary Care Provider Address: [address] [facility] [address] [place] [address] [place] Name: NICKOLAS Martinez Lynn Position: Physician Ensemble Member Exempt - Vasc Surg Member Role: Lifetime Relationship Address: [address] [place] [address] [address] [place] [address] [place] Name: SAMIR Simmons Christina L Position: Physician - Podiatry Member Role: Lifetime Relationship Address: [address] [address] [place] Name: MD Dominguez Wayne J Position: Physician - Sports Medicine [place] Member Role: Lifetime Relationship Address: [address] [place] [address] [place] Care Team Related Persons Name: MIRYAM DURANT Name: SONIA DURANT"
--- OUTSIDE RECORDS SUMMARY | 2024-08-28 02:43 | External Medical Summary | Continuity of Care Document ---
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 [employer] Name Role Phone Garcia Ramirez Primary Care Physician [phone] Encounter [facility] FINNBR [id number] Date(s): 08/18/24 - 08/18/24 [facility] [address] [address] [phone] Encounter Diagnosis Testicular pain, right(Discharge Diagnosis) - 08/18/24 Urinary incontinence(Discharge Diagnosis) - 08/18/24 Discharge Disposition: Home or Self Care Attending Physician: MD Ramirez Christopher Allergies, Adverse Reactions, Alerts Substance Criticality Severity Reaction Reaction Severity Status DULoxetine feeling weird Activ e Immunizations Given and Recorded Vaccine Date Status [...] q4h, Disp# 8 g, Refills: 2, Pharmacy: [id number] Start Date: 04/13/22 Stop Date: 11/30/22 Status: Ordered aspirin Start: 12/15/10 1:55:00 PM EDT, 325 mg =, PO, Daily Start Date: 12/15/10 Status: Ordered chlordiazePOXIDE 25 mg oral capsule Start: 08/13/24 2:56:00 PM EST, 1 cap, PO, tid, Disp# 90 cap, Refills: 0, Trying to reduce use from TID to BID, PRN: as needed for anxiety, Pharmacy: [facility] Start Date: 08/13/24 Stop Date: 09/12/24 Status: Ordered DULoxetine 30 mg oral delayed release capsule Start: 08/07/24 6:57:00 PM EST, 1 cap, PO, Daily, Disp# 30 cap, Refills: 2, Pharmacy: [facility] Start Date: 08/07/24 Stop Date: 11/05/24 Status: Ordered fentaNYL 50 mcg/hr transdermal film, extended release Start: 08/13/24 2:56:00 PM EST, 1 patch, topical, q48h, Disp# 15 patch, Refills: 0, Pharmacy: [facility] Start Date: 08/13/24 Stop Date: 09/12/24 Status: Ordered finasteride 5 mg oral tablet Start: 06/26/24 12:33:00 PM EST, See Instructions, Disp# 90 tab, Refills: 4, TAKE ONE TABLET BY MOUTH EVERY DAY, Pharmacy: [facility] Start Date: 06/26/24 Status: Ordered levoFLOXacin 500 mg oral tablet Start: 08/18/24 5:16:00 PM EST, 1 tab, PO, q24h, Disp# 10 tab, X 10 day, Stop: 08/28/24 5:16:00 PM EST, Pharmacy: [facility] Start Date: 08/18/24 Stop Date: 08/28/24 Status: Ordered lisinopril 40 mg oral tablet Start: 06/07/23 5:18:00 PM EDT, 1 tab, PO, Daily, Disp# 90 tab, Refills: 4, Pharmacy: [facility] Start Date: 06/07/23 Status: Ordered Metoprolol Succinate ER 25 mg oral tablet, extended release Start: 12/03/23 10:43:00 AM EDT, 1 tab, PO, Daily, Disp# 90 tab, Refills: 4, Pharmacy: [facility] Start Date: 12/03/23 Status: Ordered Narcan [...] 90 tab, Refills: 0, PRN: Pain, [facility] Start Date: 08/13/24 Stop Date: 09/12/24 Status: Ordered QUEtiapine 25 mg oral tablet Start: 06/26/24 12:28:00 PM EST, 0.5 tab, PO, qhs, Disp# 45 tab, Pharmacy: [facility] Start Date: 06/26/24 Stop Date: 09/24/24 Status: Ordered simvastatin 40 mg oral tablet Start: 09/03/23 4:11:00 PM EST, 1 tab, PO, qhs, Disp# 90 tab, Refills: 4, Pharmacy: [id number] Start Date: 09/03/23 Status: Ordered Tylenol Start: 12/09/21 8:33:00 AM EDT, as needed Start Date: 12/09/21 Status: Ordered Vitamin D3 1000 intl units oral capsule Start: 11/13/17 10:40:00 AM EDT, 1 cap, PO, Daily Start Date: 11/13/17 Status: Ordered Mental Status 08/18/24 Barriers to Learning one year None evide nt Mandatory Health Literacy Documentation Yes Health Literacy Communication Barriers N ever Primary Language Colombian Problem List Condition Confirmation Course Effective Dates [...] Effective Dates Health Status Clinical Service Informant Urinary incontinence Discharge Diagnosis 08/18/24 Non-Specified Testicular pain, right Discharge Diagnosis 08/18/24 Non-Specified Procedures Procedure Date [...] multilevel degenerative disc disease and facet arthrosis Results Laboratory List Name Date Urine Chemstick POC Outpt. (Urinalysis C hemstick POC Outpt.) 08/18/24 Most recent to oldest [Reference Range]: 1 Glucose Urine Dipstick Ref Range [negati ve] (08/18/24 3:10 PM) Bilirubin Urine Dipstick Ref Range [nega tive] (08/18/24 3:10 PM) Specific [place] Urine Ref Range [No Nor mal Defined] (08/18/24 3:10 PM) Protein Urine Dipstick Ref Range [negati ve] (08/18/24 3:10 PM) pH Urine Dipstick Ref Range [4.5 - 8.0] (08/18/24 3:10 PM) Ketones Urine Dipstick Ref Range [negati ve] (08/18/24 3:10 PM) Blood Urine Dipstick Ref Range [negative ] (08/18/24 3:10 PM) Urobilinogen Urine Dipstick Ref Range [0 .2 - 1.0 mg/dL] (08/18/24 3:10 PM) Nitrites Urine Dipstick Ref Range [negat yash] (08/18/24 3:10 PM) Leukocytes Urine Dipstick Ref Range [neg ative] (08/18/24 3:10 PM) U Leuk Est Negative (08/18/24 3:10 PM) U Nitrite Negative (08/18/24 3:10 PM) U Urobilinogen 0.2 mg/dl (08/18/24 3:10 PM) U Protein Negative (08/18/24 3:10 PM) U pH 5.5 (08/18/24 3:10 PM) U Blood Negative (08/18/24 3:10 PM) U Spec Grav 1.020 1 (08/18/24 3:10 PM) U Ketones Negative (08/18/24 3:10 PM) U Bili Negative (08/18/24 3:10 PM) U Gluc Negative (08/18/24 3:10 PM) U Appear Clear (08/18/24 3:10 PM) Urine color urine dipstick Pale yellow (08/18/24 3:10 PM) 1Result Comment: Performed at: [facility], [facility], [address], [place] [address] Vital Signs Most recent to oldest [Reference Range]: 1 Heart Rate 67 bpm (08/18/24 2:05 PM) Respiratory Rate 18 br/min (08/18/24 2:05 PM) Blood Pressure 148/62mmHg (08/18/24 2:05 PM) Cuff Pulse Pressure 86 mmHg (08/18/24 2:05 PM) Social History Social History Type Response Tobacco Current every day sm oker, Cigarettes, Started age 12 Years. Smoking Status Current every day he elmer smoker Sex Male Sex Representation Male (finding) Patient Care team information Care Team Personnel Name: MD Ramirez Christopher Position: Physician - Family Med Member Role: Primary Care Provider Address: [address] [facility] [address] [place] [address] [place] Name: NICKOLAS Martinez Lynn Position: Physician Silk Brusher Exempt - Vasc Surg Member Role: Lifetime Relationship Address: [address] [facility] [address] [place] [address] [place] Name: SAMIR Simmons, Kalani Sam Position: Physician - Podiatry Member Role: Lifetime Relationship Address: [address] [facility] [address] [place] [address] [place] Name: MD Alberto, Severo Lantigua Position: Physician - Sports Medicine [place] Member Role: Lifetime Relationship Address: [address] [facility] [address] [place] [address] [place] Care Team Related Persons Name: MIRYAM DURANT Name: SONIA DURANT
--- NOTE | 2024-08-28 06:03 | Billing Data ---
Date of Service August 28, 2024 Coding Level of Care Code 47434 INT INP/OBS CARE
--- NOTE | 2024-08-28 08:07 | Electrocardiogram Report ---
Test Reason : Blood Pressure : */* mmHG Vent. Rate : 57 BPM Atrial Rate : 57 BPM P-R Int : 160 ms QRS Dur : 90 ms QT Int : 448 ms P-R-T Axes : 41 18 42 degrees QTcB Int : 436 ms Sinus bradycardia with Premature supraventricular complexes Otherwise normal ECG When compared with ECG of 19-Jun-2024 12:41, Premature supraventricular complexes are now Present Confirmed by Ted Pascal ([id number]) on 08/28/2024 8:07:23 AM Referred By: REFERRED SELF Confirmed By: Ted Pascal
[2024-08-28 08:37] LABS: Basophils # (auto) 0.07 K/uL (0.00-0.20); Basophils % (auto) 0.9 %; Eosinophils # (auto) 0.37 K/uL (0.00-0.50); Eosinophils % (auto) 4.8 %; Hematocrit (blood only) 30.7 % (42.0-52.0); Hemoglobin 10.2 g/dl (14.0-18.0); Immature Granulocytes # (auto) 0.03 K/uL (0.01-0.20); Immature Granulocytes % (auto) 0.4 %; Lymphocytes # (auto) 2.18 K/uL (1.20-3.40); Lymphocytes % (auto) 28.2 %; Mean Corpuscular Hemoglobin 29.2 pg (25.0-34.0); Mean Corpuscular Hgb Conc 33.2 g/dL (32.0-36.0); Mean Platelet Volume 10.1 fL (9.4-12.4); Monocytes % (auto) 6.5 %; Neutrophils # (auto) 4.57 K/uL (1.40-6.50); Neutrophils % (auto) 59.2 %; Platelet Count 234 K/uL (130-400); RDW Coefficient of Variation 13.5 % (11.5-14.5); RDW Standard Deviation 43.5 fL (36.4-46.3); Red Blood Count 3.49 M/uL (4.70-6.10); White Blood Count 7.72 K/ul (4.8-10.8)
[2024-08-28] MEDS: ASPIRIN 325 MG ECTAB PO SCH (08:46)
[2024-08-28] MEDS: FINASTERIDE 5 MG TAB PO SCH (08:46)
[2024-08-28] MEDS: fentaNYL 50 MCG/HR TDSY TD SCH (08:47)
[2024-08-28] MEDS: DULoxetine HCL 30 MG CAP PO SCH (08:47)
[2024-08-28] MEDS: TAMSULOSIN HCL 0.4 MG CAP PO SCH (08:47)
[2024-08-28 08:50] LABS: BUN Creatinine Ratio 28.8 (10-20); Calcium 8.2 mg/dl (8.6-10.3); Magnesium 1.7 mg/dl (1.7-2.4); Potassium 3.9 mmol/L (3.5-5.1)
[2024-08-28] MEDS: oxyCODONE HCL IR 5 MG TAB (IMMEDIATE RELEASE) PO PRN (08:55)
[2024-08-28] MEDS: chlordiazePOXIDE HCl 25 MG CAP PO SCH (08:56)
--- NOTE | 2024-08-28 11:41 | Hospitalist Progress Note ---
Date of Service August 28, 2024 Assessment & Plan (1) Weakness: Plan: -likely multifactorial in the setting of chronic decline with dementia, alcohol abuse, chronic pain syndrome - concern for acute worsening with poor PO intake/dehydration, UTI - feels a little better after IV fluids - PT/OT - family states this has been a gradual decline and ultimately would like to consider home with hospice if appropriate -business intelligence manager consulted, plans underway for hospice (2) Hypotension: Plan: Resolved after IV fluids (3) Acute kidney injury superimposed on CKD: Plan: - creatinine= 2.92, recent baseline of 2 - suspect pre-renal in the setting of poor PO intake - s/p 1L IVF in ED will continue with an additional 1L NSS @80ml/hr overnight - trend BMP (4) UTI (urinary tract infection): Plan: - UA with trace LE - urine culture is pending - ?if truly symptomatic but given that he is a male and similar presentation 06/2024 plan to treat - last urine culture 06/2024 grew louis sensitive E Coli-> plan to treat with ceftriaxone (5) Hypomagnesemia: Plan: - Mg= 1.5; repleted in ED - continue to trend (6) Myofascial pain: Plan: - continue home medications: Librium 25mg TID, fentanyl 50mcg patch, duloxetine 30mg daily (7) Alcohol abuse: Plan: - family denies recent alcohol use - ammonia= 11 - low risk for withdrawal; if concern arises during admission would add AWSS (8) Dyslipidemia: Plan: - continue statin (9) Anemia: Plan: - Hgb= 9.8 on admission without signs of acute bleeding - baseline hgb of ~10 - trend CBC (10) Declining functional status: Plan: family agreeable to hospice Plan Plan is for hospice, family and PCP in agreement Diet: Regular; dysphagia screening pending Code: DNR/DNI Dispo: Med Tele VTE Prophylaxis: SCD Admission and Anticipated Discharge Date Admission Date: August 27, 2024 Subjective patient seen and examined, family by the bed side, agree with plans for hospice Review of Systems Review of Systems: All systems reviewed are negative, apart from the ones contained in the history. Physical Exam Physical Exam: The patient is awake, alert and oriented 3, well developed and well nourished, normocephalic and atraumatic, lying in bed and in no acute distress. HEENT--PERRL, EOMI, mucous membranes and oropharynx mildly dry Neck--supple. No JVD. No bruits. Thyroid normal, trachea midline, no adenopathy. Heart--normal S1 and S2. No murmurs, rubs or gallops. Lungs--clear bilaterally, no respiratory distress, no accessory muscle use. Abdomen--normal bowel sounds and soft. Extremities--no cyanosis or clubbing. No edema. Dermatologic--normal skin turgor, normal color, no abnormal lymph nodes, no rash. Neurologic--cranial nerves II through XII grossly intact. Rheumatologic--normal range of motion. Psychiatric--normal affect. Results & Data Results & Data Vital Signs (Past 12 Hours) Vital Signs Temp Pulse Pulse Resp BP Pulse Ox O2 Del Method 08/28/24 08:22 97.3 F L 58 L 16 117/61 97 Room Air 08/28/24 07:00 63 08/28/24 03:45 97.3 F L 61 18 123/65 97 Room Air 08/28/24 01:10 55 L 08/28/24 01:10 Room Air 08/28/24 01:10 96.8 F L 61 17 147/72 H 96 Room Air PG Care Time/CCT Total # of Minutes Spent Total Time Spent with Patient: Total time spent is greater than 50% in coordination of care (as documented) at patient's floor/unit and/or counseling patient: Coding Level of Care Code 89426 SUB INP/OBS CARE 2/35MIN Diagnoses Weakness R53.1 Hypotension I95.9 Acute kidney injury superimposed on CKD N17.9; N18.9 UTI (urinary tract infection) N39.0 Hypomagnesemia E83.42 Myofascial pain M79.18 Alcohol abuse F10.10 Dyslipidemia E78.5 Anemia D64.9 Declining functional status R53.81 Time Spent (min) 35
[2024-08-28] MEDS: cefTRIAXone SODIUM 1,000 MG/50 ML BAG IV SCH (21:07)
[2024-08-28] MEDS: SIMVASTATIN 40 MG TAB PO SCH (21:09)
--- NOTE | 2024-08-29 07:58 | Hospitalist Progress Note ---
Date of Service August 29, 2024 Assessment & Plan (1) Weakness: (2) Hypotension: (3) Acute kidney injury superimposed on CKD: (4) UTI (urinary tract infection): (5) Hypomagnesemia: (6) Myofascial pain: Plan: - continue home medications: Librium 25mg TID, fentanyl 50mcg patch, duloxetine 30mg daily (7) Alcohol abuse: (8) Dyslipidemia: (9) Anemia: (10) Declining functional status: Plan 83 year old male with a past medical history of alcohol abuse, chronic pain syndrome, GERD, HLD, anxiety, CKD, dementia presenting with increase weakness/confusion. Family reports that he has had a gradual decline in mental status and increased weakness over the past few months. Worse over the past 5 days, to the point where they are unable to care for him at home. Has been more confused, hallucination at night. Complaining of left shoulder pain that is chronic but flared. Multiple falls at home over the past few months, family denies any recent falls or injuries. Has been following with PCP. Spoke with PCP today and he recommend that he come in to be evaluated. Both pt and family have discussed whether hospice would be appropriate and are considering if he qualifies. Would like home hospice. #Weakness: - likely multifactorial in the setting of chronic decline with dementia, alcohol abuse, chronic pain syndrome - concern for acute worsening with poor PO intake/dehydration, UTI - feels a little better after IV fluids - PT/OT : 24hr care, return home with 24 hr supervision - family has decided to proceed with hospice, hospice has accepted pt - CM on board #Hypotension: - Resolved after IV fluids #Acute kidney injury superimposed on CKD: - creatinine= 2.92, recent baseline of 2 - suspect pre-renal in the setting of poor PO intake - s/p 1L IVF in ED will continue with an additional 1L NSS @80ml/hr overnight - trend BMP #UTI (urinary tract infection): - UA with trace LE - urine culture: no growth - ?if truly symptomatic but given that he is a male and similar presentation 06/2024 plan to treat - last urine culture 06/2024 grew louis sensitive E Coli-> plan to treat with ceftriaxone #Hypomagnesemia: - Mg= 1.5; repleted in ED - continue to trend #Myofascial pain: - continue home medications: Librium 25mg TID, fentanyl 50mcg patch, duloxetine 30mg daily #h/o Alcohol abuse: - family denies recent alcohol use - ammonia= 11 - low risk for withdrawal; if concern arises during admission would add AWSS #Dyslipidemia: - continue statin #Anemia: - Hgb= 9.8 on admission without signs of acute bleeding - baseline hgb of ~10 - trend CBC #Declining functional status: - d/c to hospice Plan is for hospice, family and PCP in agreement Diet: Regular; dysphagia screening pending Code: DNR/DNI Dispo: Med Tele , d/c on 08/30 at bedside VTE Prophylaxis: SCD Admission and Anticipated Discharge Date Admission Date: August 27, 2024 Subjective No acute events overnight Currently no new complaints Review of Systems Review of Systems: Comprehensive ROS not able to be completed due to mentation Physical Exam Physical Exam: Gen: NAD HEENT: NC/AT, MMM Lungs: CTAB CVS: s1s2nl, RRR Abd: soft, NT, nl bowel sounds Ext: no edema Results & Data Results & Data Vital Signs (Past 12 Hours) Vital Signs Temp Pulse Pulse Resp BP BP Pulse Ox 08/29/24 07:42 36.5 C 72 12 104/54 L 95 08/29/24 03:29 36.4 C L 76 18 106/54 L 97 08/28/24 23:56 72 08/28/24 22:28 36.4 C L 75 18 118/57 L 97 O2 Del Method 08/29/24 07:42 Room Air 08/29/24 03:29 Room Air 08/28/24 23:56 08/28/24 22:28 Room Air PG Care Time/CCT Total # of Minutes Spent Total Time Spent with Patient: Total time spent is greater than 50% in coordination of care (as documented) at patient's floor/unit and/or counseling patient: Coding Level of Care Code 06749 SUB INP/OBS CARE 2/35MIN Diagnoses Weakness R53.1 Hypotension I95.9 Acute kidney injury superimposed on CKD N17.9; N18.9 UTI (urinary tract infection) N39.0 Hypomagnesemia E83.42 Myofascial pain M79.18 Alcohol abuse F10.10 Dyslipidemia E78.5 Anemia D64.9 Declining functional status R53.81
[2024-08-30] MEDS: fentaNYL 50 MCG/HR TDSY TD SCH (09:20)
--- NOTE | 2024-08-30 13:23 | Hospitalist Progress Note ---
Date of Service August 30, 2024 Assessment & Plan (1) Weakness: (2) Hypotension: (3) Acute kidney injury superimposed on CKD: (4) UTI (urinary tract infection): (5) Hypomagnesemia: (6) Myofascial pain: (7) Alcohol abuse: (8) Dyslipidemia: (9) Anemia: (10) Declining functional status: Plan 83 year old male with a past medical history of alcohol abuse, chronic pain syndrome, GERD, HLD, anxiety, CKD, dementia presenting with increase weakness/confusion. Family reports that he has had a gradual decline in mental status and increased weakness over the past few months. Worse over the past 5 days, to the point where they are unable to care for him at home. Has been more confused, hallucination at night. Complaining of left shoulder pain that is chronic but flared. Multiple falls at home over the past few months, family denies any recent falls or injuries. Has been following with PCP. Spoke with PCP today and he recommend that he come in to be evaluated. Both pt and family have discussed whether hospice would be appropriate and are considering if he qualifies. Would like home hospice. #Weakness: - likely multifactorial in the setting of chronic decline with dementia, alcohol abuse, chronic pain syndrome - concern for acute worsening with poor PO intake/dehydration, UTI - feels a little better after IV fluids - PT/OT : 24hr care, return home with 24 hr supervision - family has decided to proceed with hospice, hospice has accepted pt - CM on board #Hypotension: - Resolved after IV fluids #Acute kidney injury superimposed on CKD: - creatinine= 2.92, recent baseline of 2 - suspect pre-renal in the setting of poor PO intake - s/p 1L IVF in ED will continue with an additional 1L NSS @80ml/hr overnight - trend BMP #UTI (urinary tract infection): - UA with trace LE - urine culture: no growth - ?if truly symptomatic but given that he is a male and similar presentation 06/2024 plan to treat - last urine culture 06/2024 grew louis sensitive E Coli-> plan to treat with ceftriaxone #Hypomagnesemia: - Mg= 1.5; repleted in ED - continue to trend #Myofascial pain: - continue home medications: Librium 25mg TID, fentanyl 50mcg patch, duloxetine 30mg daily #h/o Alcohol abuse: - family denies recent alcohol use - ammonia= 11 - low risk for withdrawal; if concern arises during admission would add AWSS #Dyslipidemia: - continue statin #Anemia: - Hgb= 9.8 on admission without signs of acute bleeding - baseline hgb of ~10 - trend CBC #Declining functional status: - d/c to hospice Plan is for hospice, family and PCP in agreement Diet: Regular; dysphagia screening pending Code: DNR/DNI VTE Prophylaxis: SCD 08/29: at bedside 08/30: at bedside. agreeable to d/c. However, son is uncomfortable at this time. CM discussed with hospice nurse, recs tomorrow discharge to allow hospice nurse to touch base with family and alleviate any concerns. Admission and Anticipated Discharge Date Admission Date: August 27, 2024 Subjective No acute events overnight Currently no new complaints Review of Systems Review of Systems: Comprehensive ROS not able to be completed due to mentation Physical Exam Physical Exam: Gen: NAD HEENT: NC/AT, MMM Lungs: CTAB CVS: s1s2nl, RRR Abd: soft, NT, nl bowel sounds Ext: no edema Results & Data Results & Data Vital Signs (Past 12 Hours) Vital Signs Temp Pulse Pulse Resp BP Pulse Ox O2 Del Method 08/30/24 11:41 36.2 C L 61 18 143/66 H 96 Room Air 08/30/24 09:00 70 08/30/24 07:29 36.4 C L 65 16 148/64 H 96 Room Air 08/30/24 03:50 36.3 C L 75 18 147/55 H 95 Room Air PG Care Time/CCT Total # of Minutes Spent Total Time Spent with Patient: Total time spent is greater than 50% in coordination of care (as documented) at patient's floor/unit and/or counseling patient: Coding Level of Care Code 35196 SUB INP/OBS CARE 2/35MIN Diagnoses Weakness R53.1 Hypotension I95.9 Acute kidney injury superimposed on CKD N17.9; N18.9 UTI (urinary tract infection) N39.0 Hypomagnesemia E83.42 Myofascial pain M79.18 Alcohol abuse F10.10 Dyslipidemia E78.5 Anemia D64.9 Declining functional status R53.81
[2024-08-30 15:18] LABS: 7-Aminoclonaz, Confirm NEGATIVE ng/mL (<25); Codeine Urine NEGATIVE ng/mL (<50); Fentanyl, Urine 85.9 ng/mL (<0.5); Hydro-Alp Ur, GC/MS NEGATIVE ng/mL (<25); Hydrocodone Urine NEGATIVE ng/mL (<50); Hydromor Urine NEGATIVE ng/mL (<50); Hydroxyethylflurazepam, Conf NEGATIVE ng/mL (<50); Hydroxymidazolam Ur, GC/MS NEGATIVE ng/mL (<50); Hydroxytriazolam NEGATIVE ng/mL (<50); Lorazepam, Ur GC/MS NEGATIVE ng/mL (<50); Morphine Urine NEGATIVE ng/mL (<50); Nordiazepam, Confirm 152 ng/mL (<50); Norfentanyl, Urine >250.0 ng/mL (<0.5); Norhydrocodone Conf Ur NEGATIVE ng/mL (<50); Noroxycodone Urine 1100 ng/mL (<50); Oxazepam Ur, GC/MS >2000 ng/mL (<50); Oxycodone Urine 356 ng/mL (<50); Oxymorph Urine 253 ng/mL (<50); Temazepam, Confirm NEGATIVE ng/mL (<50); medMATCH Fentanyl, Urine DNR; medMATCH Norfentanyl, Urine DNR
[2024-08-30 15:35] VITALS: O2SAT 97
[2024-08-30] MEDS: MELATONIN 3 MG TAB PO PRN (21:04)
[2024-08-30] MEDS: OLANZapine 10 MG/2.1 ML SDV IM ONE (23:55)
[2024-08-31 07:21] VITALS: PULSE 72; RESP 18; TEMP 97.3
[2024-08-31] MEDS ORDERED: bisacodyL 10 MG SUPP PR ONE (09:13)
[2024-08-31] MEDS ORDERED: DOCUSATE SODIUM/SENNA 50/8.6MG TAB PO SCH (09:15)
[2024-08-31] MEDS: fentaNYL 50 MCG/HR TDSY TD SCH (09:55)
[2024-08-31 10:01] VITALS: BP 136/62
[2024-08-31] MEDS ORDERED: ondansetron HCL 8 MG in DEXTROSE 5% 50 ML IV STA (10:03)
[2024-08-31] MEDS: ONDANSETRON INJ 2 MG/ML 2 ML VIAL IV ONE (10:11)
--- NOTE | 2024-08-31 10:12 | Discharge Summary ---
Discharge Summary Date of Service August 31, 2024 Principal Dx & Hospital Course #1 = Principal Diagnosis (1) Weakness: (2) Hypotension: (3) Acute kidney injury superimposed on CKD: (4) UTI (urinary tract infection): (5) Hypomagnesemia: (6) Myofascial pain: (7) Alcohol abuse: (8) Dyslipidemia: (9) Anemia: (10) Declining functional status: Plan 83 year old male with a past medical history of alcohol abuse, chronic pain syndrome, GERD, HLD, anxiety, CKD, dementia presenting with increase weakness/confusion. Family reports that he has had a gradual decline in mental status and increased weakness over the past few months. Worse over the past 5 days, to the point where they are unable to care for him at home. Has been more confused, hallucination at night. Complaining of left shoulder pain that is chronic but flared. Multiple falls at home over the past few months, family denies any recent falls or injuries. Has been following with PCP. Spoke with PCP today and he recommend that he come in to be evaluated. Both pt and family have discussed whether hospice would be appropriate and are considering if he qualifies. Would like home hospice. #Bilious emesis - abdomen is soft, nontender, normal bowel sounds - son at bedside, discussed managing symptoms vs further workup for emesis, he opted for symptom management - will give zofran 4mg IV x1 prior to leaving - d/c on zofran ODT 8mg q8h prn - Senna S BID plus biscodyl KS prn for constipation #Weakness: - likely multifactorial in the setting of chronic decline with dementia, alcohol abuse, chronic pain syndrome - concern for acute worsening with poor PO intake/dehydration, UTI - feels a little better after IV fluids - PT/OT : 24hr care, return home with 24 hr supervision - family has decided to proceed with hospice, hospice has accepted pt - CM on board , oncology patient navigator aware of pt discharge #Hypotension: - Resolved after IV fluids #Acute kidney injury superimposed on CKD: - creatinine= 2.92, recent baseline of 2 - suspect pre-renal in the setting of poor PO intake - s/p 1L IVF in ED will continue with an additional 1L NSS @80ml/hr overnight - trend BMP #UTI (urinary tract infection): - UA with trace LE - urine culture: no growth - ?if truly symptomatic but given that he is a male and similar presentation 06/2024 plan to treat - last urine culture 06/2024 grew louis sensitive E Coli-> plan to treat with ceftriaxone , complete 5 day course, d/c on 1 mroe day of keflex #Hypomagnesemia: - Mg= 1.5; repleted in ED - continue to trend #Myofascial pain: - continue home medications: Librium 25mg TID, fentanyl 50mcg patch, duloxetine 30mg daily #h/o Alcohol abuse: - family denies recent alcohol use - ammonia= 11 - low risk for withdrawal; if concern arises during admission would add AWSS #Dyslipidemia: - continue statin #Anemia: - Hgb= 9.8 on admission without signs of acute bleeding - baseline hgb of ~10 - trend CBC #Declining functional status: - d/c to hospice Plan is for hospice, family and PCP in agreement Diet: Regular; dysphagia screening pending Code: DNR/DNI VTE Prophylaxis: SCD 08/29: at bedside 08/30: at bedside. agreeable to d/c. However, son is uncomfortable at this time. CM discussed with hospice nurse, recs tomorrow discharge to allow hospice nurse to touch base with family and alleviate any concerns. 08/31: pt's son at bedside, agreeable with d/c planning Admission HPI Per Admitting Provider 83 year old male with a past medical history of alcohol abuse, chronic pain syndrome, GERD, HLD, anxiety, CKD, dementia presenting with increase weakness/confusion. Family reports that he has had a gradual decline in mental status and increased weakness over the past few months. Worse over the past 5 days, to the point where they are unable to care for him at home. Has been more confused, hallucination at night. Complaining of left shoulder pain that is chronic but flared. Multiple falls at home over the past few months, family denies any recent falls or injuries. Has been following with PCP. Spoke with PCP today and he recommend that he come in to be evaluated. Both pt and family have discussed whether hospice would be appropriate and are considering if he qualifies. Would like home hospice. ED Course Significant for: Hgb= 9.8, Creatinine= 2.92, Mg= 1.5. EKG with sinus jonnathan, PVCs.Ammonia=11. VBG unremarkable. CXR without acute pathology. UA with trace LE. Urine drug screen pending. S/p 1L NSS. Discharge Exam Gen: NAD HEENT: NC/AT, MMM Lungs: CTAB CVS: s1s2nl, RRR Abd: soft, NT, nl bowel sounds Ext: no edema Discharge Plan Discharge Items Patient Disposition: Hospice - Home Reason For Visit: AMS Discharge Diagnosis: Dementia AMS Activity: Resume your previous activity Non-emergency contact: Primary Care Provider Call non-emergency contact if: you have any medication questions and your symptoms worsen Follow-up/Referrals: Garcia Ramirez MD [Primary Care Provider] - Diet: Regular Addtl Attending Provider Instructions: 1. Call hospice team if conditions or symptoms worsen Pending Studies at Discharge: No Stand-Alone Forms: My [facility] [employer] Medications and DC Order Prescriptions: New cephalexin 500 mg capsule 500 mg PO BID 1 Days Qty: 2 0RF sennosides-docusate sodium [Senokot-S] 8.6-50 mg Tablet 2 tab PO BID17 30 Days Qty: 60 0RF melatonin 3 mg Tablet 6 mg PO HS PRN (Reason: sleep) Qty: 30 0RF ondansetron 8 mg tablet,disintegrating 8 mg PO Q8H PRN (Reason: nausea and vomiting) 5 Days Qty: 20 0RF bisacodyl 10 mg suppository 10 mg KS DAILY PRN (Reason: constipation) Qty: 30 0RF Continued aspirin 325 mg tablet 325 mg PO DAILY chlordiazepoxide HCl 25 mg capsule 25 mg PO TID cholecalciferol (vitamin D3) 1,000 unit capsule 1,000 units PO DAILY finasteride 5 mg tablet 5 mg PO DAILY loperamide [Imodium A-D] 2 mg tablet 2 mg PO Q6H multivitamin capsule 1 cap PO DAILY simvastatin 40 mg tablet 40 mg PO QPM tamsulosin 0.4 mg capsule 0.4 mg PO DAILY oxycodone 10 mg tablet 10 mg PO TID PRN (Reason: pain) Qty: 10 0RF quetiapine 25 mg Tablet 25 mg PO HS Qty: 30 0RF duloxetine 30 mg capsule,delayed release(DR/EC) 30 mg PO DAILY fentanyl 50 mcg/hr patch 72 hour 50 mcg transdermal Q2D Discontinued ibuprofen 200 mg tablet 200 mg PO QID PRN (Reason: Pain, Mild) metoprolol tartrate 25 mg tablet 25 mg PO DAILY levofloxacin 500 mg tablet 500 mg PO DAILY Discharge Orders: Discharge Order (Routine); Ordered 08/31/24 Ordered By: Betsy Bounre Admission Data Admit Date/Time: 08/27/24 20:18 Attending Provider: Betsy Bourne Admit Provider: Adriana Coppola Primary Care Provider: Garcia Ramirez Other Providers: Basil Rivera; [facility] Other Interventions: Discharge Summary Assessment (RN) Last Done: 08/31/24 09:43 Hospital Stay Data Consultations 08/27/24 19:30 ED Decision to Admit Stat Pending Results Patient Have Any Pending Studies at Discharge: No Discharge Instructions Given to Patient (Per Discharging Provider) 1. Call hospice team if conditions or symptoms worsen Total Time Total Time Spent Total Time Spent (In Minutes): 50 Coding Level of Care Code 27167 INP/OBS DISCH >30 MIN Diagnoses Weakness R53.1 Hypotension I95.9 Acute kidney injury superimposed on CKD N17.9; N18.9 UTI (urinary tract infection) N39.0 Hypomagnesemia E83.42 Myofascial pain M79.18 Alcohol abuse F10.10 Dyslipidemia E78.5 Anemia D64.9 Declining functional status R53.81
== END 2024-08-31 11:07 | disposition hospice, home (50) | DRG 682 ==
LOC: ED 18:05 → 2N 20:18 → SUATTDRO 20:18 → 2N 22:46